=== PATIENT | male | born 1965 | race Caucasian/White ===

== ENCOUNTER 2020-06-11 09:37 | Outpatient (REF) | payer OTHER, SELFPAY ==
[2020-06-11 10:38] LABS: Alanine Aminotransferase 36 U/L (0-40); Anion Gap 13 (12-20); Aspartate Amino Transferase 27 U/L (5-37); Blood Urea Nitrogen 18 mg/dL (9-16); Calcium 9.2 mg/dL (8.4-10.2); Carbon Dioxide 27 mmol/L (22-29); Chloride 104 mmol/L (96-108); Cholesterol 194 mg/dL; Estimated Glomerular Filt Rate > 60; Glucose Random 137 mg/dL (60-115); HDL Cholesterol 31 mg/dL; LDL Cholesterol Calculated 105 mg/dl; Potassium 4.6 mmol/l (3.3-5.1); Sodium 139 mmol/L (135-145); Triglycerides 291 mg/dL
== END 2020-06-11 09:38 | disposition home or self-care (01) ==
LOC: HO.LAB 09:37
PROVIDERS: PCP Nurse Practitioner Family; Visit Provider Nurse Practitioner Family
DX: I48.91 Unspecified atrial fibrillation (principal); I25.10 Atherosclerotic heart disease of native coronary artery without angina pectoris; I48.0 Paroxysmal atrial fibrillation; I10 Essential (primary) hypertension; E78.2 Mixed hyperlipidemia; Z79.01 Long term (current) use of anticoagulants; Z95.1 Presence of aortocoronary bypass graft
CPT/HCPCS: 36415; 80048; 80061; 84450; 84460; 99212

== ENCOUNTER 2020-07-29 13:26 | Outpatient (REF) | payer OTHER, SELFPAY ==
[2020-07-29 15:20] LABS: Hematocrit 44.9 % (42-52); Hemoglobin 15.1 g/dl (14.0-18.0); Mean Corpuscular HGB Conc 33.6 g/dl (31.0-36.0); Mean Corpuscular Hemoglobin 30.1 pg (27.0-33.0); Mean Corpuscular Volume 89.6 fL (80-98); Mean Platelet Volume 10.1 fL (9.4-12.4); Platelet Count 252 X10*3/uL (160-400); Red Blood Count 5.01 X10*6/uL (4.60-5.80); Red Cell Distribution Width 12.6 % (11.0-16.0); White Blood Count 7.9 X10*3/uL (4.8-10.8)
[2020-07-29 15:47] LABS: Alanine Aminotransferase 32 U/L (0-40); Albumin Level 4.4 g/dL (3.5-5.0); Alkaline Phosphatase 61 U/L (39-117); Anion Gap 13 (12-20); Aspartate Amino Transferase 22 U/L (5-37); Bilirubin Total 0.5 mg/dL (0.0-1.0); Blood Urea Nitrogen 21 mg/dL (9-16); Calcium 9.3 mg/dL (8.4-10.2); Carbon Dioxide 29 mmol/L (22-29); Chloride 102 mmol/L (96-108); Cholesterol 214 mg/dL; Estimated Glomerular Filt Rate > 60; Glucose Fasting 97 mg/dL (60-99); HDL Cholesterol 31 mg/dL; Potassium 4.2 mmol/L (3.3-5.1); Sodium 140 mmol/L (135-145); Total Protein 7.1 g/dL (6.5-8.0); Triglycerides 433 mg/dL
[2020-07-29 16:09] LABS: Prostate Specific Antigen Scr 0.41 ng/mL (<0.05-4.0); TSH reflex Free T4 2.98 uIU/mL (0.32-4.0)
== END 2020-07-29 13:27 | disposition home or self-care (01) ==
LOC: HO.LAB 13:26
PROVIDERS: PCP Nurse Practitioner Family; Visit Provider Nurse Practitioner Family
DX: Z01.818 Encounter for other preprocedural examination (principal); I10 Essential (primary) hypertension; I25.10 Atherosclerotic heart disease of native coronary artery without angina pectoris; Z87.19 Personal history of other diseases of the digestive system; Z79.01 Long term (current) use of anticoagulants; Z95.1 Presence of aortocoronary bypass graft; Z90.49 Acquired absence of other specified parts of digestive tract; Z12.5 Encounter for screening for malignant neoplasm of prostate
CPT/HCPCS: 36415; 80053; 80061; 84153; 84443; 85027; 99202

== ENCOUNTER 2021-01-07 08:44 | Outpatient (REF) | payer OTHER, SELFPAY ==
--- NOTE | ~2021-01-07 | US_ITS ---
EXAMINATION: US VENOUS ULTRASOUND WITH DOPPLER LOWER EXTREMITY, RIGHT CLINICAL INFORMATION: Pain right lower leg. COMPARISON: None TECHNIQUE: Ultrasound of the deep veins is performed from the hip to the calf with compression sonography and color and pulse Doppler assessment. Spectral analysis with color-flow imaging is performed. FINDINGS: There is normal venous compression and respiratory variation and augmented flow. The visualized common femoral vein, superficial femoral vein, profunda femoral vein, popliteal vein, and the trifurcation region shows no evidence of deep venous thrombosis. There is no significant popliteal fossa cyst. If the patient's symptoms persist, followup ultrasound in 5 days 7 days might be of value to exclude proximal propagation from a non-visualized calf vein. US/US venous duplex LE RT IMPRESSION: No DVT demonstrated in the right lower extremity.
--- NOTE | ~2021-01-07 | XR_ITS ---
EXAMINATION: XR KNEE, RIGHT CLINICAL INFORMATION: Right knee pain. COMPARISON: None TECHNIQUE: Four views of the right knee with weightbearing. FINDINGS: Bones and soft tissues are normal. No fracture or joint effusion. Alignment is anatomic. Joint spaces are well maintained. No abnormal soft tissue calcification. XR/XR knee RT 4V IMPRESSION: Unremarkable right knee.
== END 2021-01-07 08:45 | disposition home or self-care (01) ==
LOC: HO.HMGCX 08:44
PROVIDERS: PCP Nurse Practitioner Family; Visit Provider Nurse Practitioner Family
DX: M25.561 Pain in right knee (principal); M79.661 Pain in right lower leg
CPT/HCPCS: 73564; 93971

== ENCOUNTER 2021-02-20 08:00 | Outpatient (RCR) | payer OTHER, SELFPAY ==
--- NOTE | 2021-01-31 09:02 | MHC.PT.EP ---
[facility] [place] Office [place] Office [place] Office [address] [phone] F: [phone] F: [phone] F: [phone] F: [phone] Physical Therapy Plan of Care Date of Evaluation: Date of Surgery: n/a Diagnosis: R knee pain Assessment: Patient is a 55 year old R handed male who presents with s/s consistent with R knee pain. Onset was gradual with no method of injury noticed, no trauma. 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 Patient past medical history includes Afib, bypass and bowel resection. Current impairments include pain, ROM, strength, safety, independence, activity tolerance and functional mobility. Functional limitations include decreased ability to walk, stand, go up/down ladders, transfer, negotiate stairs, and perform weight bearing activities.. Patient is motivated with good rehab potential. Skilled PT will address impairments and functional limitations in order to achieve goals. Frequency and Duration: The patient will be seen 2x/week for 5 weeks Short Term Goals: I with HEP - 2 weeks Pain free end range flex and extension - 2 weeks eliminate swelling - 2 weeks Intermediate Goals: Strength 4+/5 grossly - 4 weeks LEFS 54/80 or better - 5 weeks HS and gastroc flexibility WNL - 5 weeks Treatment Plan: Modalities to reduce pain, spasms and effusion. Manual therapy to restore motion and function. Therapeutic exercise to improve strength and flexibility. Neuromuscular re-education for posture and balance. Therapeutic activities to return to functional activities of daily living. Electronically signed by: Augusto Mendoza, PT Please sign and return to therapist. Thank you for your referral.
--- NOTE | 2021-04-25 10:32 | MHC.PT.DC ---
[facility] [place] Office [place] Office [place] Office [address]in Sanches [address] [phone] F: [phone] F: [phone] F: [phone] F: [phone] Physical Therapy Discharge Report Diagnosis: R knee pain Date of Surgery: n/a Date of Evaluation: 01/31/21 Date of Discharge: 03/06/21 Treatments to Date: 4 Cancellations to Date: 0 No Shows to Date: 0 Discharge Status: Recommend MD Follow-up Discharge Summary: 02/20/21: Pt currently with his fourth visit, no signs of symptomatic improvement. He has not responded well to low impact PT. He continues to ambulated with painful gait, decreased stance on R side. He still is (+) for entire meniscal cluster and has still been dealing with significantly impact work and recreational life. It is my recommendation at this time to hold on PT to pursue MR imaging for optimal medical management and discernment. 02/14/21: no symptomatic improvement thus far. we will continue to attempt progression Next week but contact referring provider if s/s persist. 02/07/21: progressed with hip and knee strength. taped for pain relief during work day. assess response when pt returns for usefulness moving forward . Patient is a 55 year old R handed male who presents with s/s consistent with R knee pain. Onset was gradual with no method of injury noticed, no trauma. 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 Patient past medical history includes Afib, bypass and bowel resection. Current impairments include pain, ROM, strength, safety, independence, activity tolerance and functional mobility. Functional limitations include decreased ability to walk, stand, go up/down ladders, transfer, negotiate stairs, and perform weight bearing activities.. Patient is motivated with good rehab potential. Skilled PT will address impairments and functional limitations in order to achieve goals. Electronically signed by: Augusto Mendoza, PT Please sign and return to therapist. Thank you for your referral.
== END 2021-04-25 10:33 | disposition home or self-care (01) ==
LOC: HO.PTCHIC 08:00
PROVIDERS: PCP Nurse Practitioner Family; Visit Provider Nurse Practitioner Family
DX: M25.561 Pain in right knee (principal)
CPT/HCPCS: 97110; 97162

== ENCOUNTER 2021-03-03 10:16 | Outpatient (REF) | payer OTHER, SELFPAY ==
--- NOTE | ~2021-03-03 | MR_ITS ---
EXAMINATION: MR KNEE WITHOUT CONTRAST, RIGHT CLINICAL INFORMATION: Right knee pain for 3 months. COMPARISON: Right knee radiographs dated 01/07/2021 TECHNIQUE: MRI of the knee without contrast was performed using routine sequences on a high-field scanner. FINDINGS: MENISCI: Medial Meniscus: Oblique femoral articular surface tear through the posterior meniscal body which extends to the inner margin and tibial articular surface of the posterior horn. Additional oblique inner margin tear of the posterior horn/root junction. Medially displaced meniscal flap measuring 2.0 cm in AP dimension (sagittal image 09/11). Lateral Meniscus: Intact. LIGAMENTS: Cruciate: Intact. Collateral: Mild fluid adjacent to the medial collateral ligament, consistent with a grade 1 sprain/partial tear. Intact fibular collateral ligament. EXTENSOR MECHANISM: Intact quadriceps and patellar tendons. Lobulated fluid ventral to the patella measuring up to 5.9 cm in craniocaudal dimension, consistent with prepatellar bursitis. ARTICULAR CARTILAGE/BONE: Patellofemoral Compartment: Patellar median ridge and medial patellar facet full-thickness articular cartilage loss measuring 1.1 cm in ML dimension. Minimal underlying subchondral cystic change. Medial trochlear full-thickness articular cartilage loss and subchondral cystic change. Small marginal osteophytes. Medial Compartment: Weightbearing articular cartilage signal heterogeneity and surface irregularity with tiny marginal osteophytes. Lateral Compartment: Lateral tibial plateau articular cartilage signal heterogeneity. Tiny marginal osteophytes. JOINT FLUID AND BURSAE: Moderate joint effusion and [id number] Topete's cyst. MR/MR knee RT wo con IMPRESSION: 1. Oblique femoral articular surface tear of the posterior medial meniscal body extending to the inner margin and tibial articular surface of the posterior horn. Additional oblique inner margin tear of the posterior horn/root junction. Medially displaced meniscal flap measuring 2.0 cm in AP dimension. 2. Probable grade 1 sprain of the medial collateral ligament. 3. Prepatellar bursitis measuring 5.9 cm in craniocaudal dimension. 4. Mild tricompartmental osteoarthritis. Moderate joint effusion and [id number] Topete's cyst.
== END 2021-03-03 10:17 | disposition home or self-care (01) ==
LOC: HO.MRI 10:16
PROVIDERS: PCP Nurse Practitioner Family; Visit Provider Nurse Practitioner Family
DX: M25.561 Pain in right knee (principal)
CPT/HCPCS: 73721

== ENCOUNTER → 2021-04-04 09:47 | Outpatient (BNVA) | payer OTHER, SELFPAY | PROVIDERS: PCP Nurse Practitioner Family; Visit Provider Orthopaedic Surgery | DX: S83.241A Other tear of medial meniscus, current injury, right knee, initial encounter (principal); I48.0 Paroxysmal atrial fibrillation; I48.91 Unspecified atrial fibrillation; Z95.1 Presence of aortocoronary bypass graft | CPT/HCPCS: 99202 ==

== ENCOUNTER 2021-04-08 08:40 | Day surgery (SDC) | payer OTHER, SELFPAY ==
--- NOTE | 2021-04-07 08:26 | HO.ANESPROP2 ---
Documented by User: Domitila Del Rosario NP 04/07/21 08:38 HPI - Anesthesia Eval Consult details Narrative: 55yo M for Right Knee Arthroscopy Eliquis for afib Cardiac cleared at low risk for low risk procedure 08/2020 [facility] Active Problems Active Problems: All Active Problems (Updated 04/04/21 @ 10:37 by Bartolo Fong MD) Tear of medial meniscus of right knee (Acute) Chronic knee pain (Acute) Right calf pain (Acute) Right knee pain (Acute) Status post coronary artery bypass graft (Acute) Screening for colon cancer (Acute) Screening PSA (prostate specific antigen) (Acute) Mixed hyperlipidemia (Acute) Essential hypertension (Acute) PAF (paroxysmal atrial fibrillation) (Acute) Atherosclerotic cardiovascular disease (Acute) Afib (Acute) Past Medical History Medical History Acquired hypothyroidism Afib Atherosclerotic cardiovascular disease Radha syndrome Essential hypertension Mixed hyperlipidemia PAF (paroxysmal atrial fibrillation) Sleep apnea Family History Family History Father Esophageal cancer Stomach cancer Mother Heart problem Brother No problems noted. Brother HTN (hypertension) Maternal Grandfather Myocardial infarction Maternal Uncle Heart problem Surgical History Surgical History History of colectomy History of esophagogastroduodenoscopy (EGD) Hx of CABG Hx of colonoscopy Social History Social History Housing: House Alcohol intake: current Alcohol intake frequency: does not drink Patient Tobacco Use Status: Never used Tobacco Second Hand Smoke Exposure: No Use of substances other than those prescribed or required for medical reasons: No Are you DNR?: No Advance Directives: No Advance Directives Information Provided: Yes Advance Directives on File: No service: No Current occupational status: employed 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 Assessment and Plan Assessment Anesthesia Assessment: Chart Reviewed Documented by User: Aditya Curtis MD 04/08/21 10:06 HPI - Anesthesia Eval Consult details Narrative: 55yo M for Right Knee Arthroscopy Eliquis for afib Cardiac cleared at low risk for low risk procedure 08/2020. >4 mets exercise capacity. PMFSH Past Medical History Medical History Acquired hypothyroidism Afib Atherosclerotic cardiovascular disease Radha syndrome Essential hypertension Mixed hyperlipidemia PAF (paroxysmal atrial fibrillation) Sleep apnea Family History Family History Father Esophageal cancer Stomach cancer Mother Heart problem Brother No problems noted. Brother HTN (hypertension) Maternal Grandfather Myocardial infarction Maternal Uncle Heart problem Family history of problems with anesthesia: No Surgical History Surgical History History of colectomy History of esophagogastroduodenoscopy (EGD) Hx of CABG Hx of colonoscopy History of Problems with Anesthesia: No Social History Social History Housing: House Alcohol intake: current Alcohol intake frequency: does not drink Patient Tobacco Use Status: Never used Tobacco Second Hand Smoke Exposure: No Use of substances other than those prescribed or required for medical reasons: No Are you DNR?: No Advance Directives: No Advance Directives Information Provided: Yes Advance Directives on File: No service: No Current occupational status: employed 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 Allergy/AdvReac Type Severity Reaction Status Date / Time atorvastatin [Lipitor] AdvReac Intermediate didn't Verified 08/28/20 08:46 tolerate rosuvastatin [Crestor] AdvReac Intermediate didn't Verified 08/28/20 08:46 tolerate venlafaxine [From Effexor] AdvReac Intermediate did not Verified 08/28/20 08:46 tolerate Exam Airway Mallampati Class: II TM Dist: >3cm Neck ROM: Full Loose/Missing/Broken Teeth: No Assessment and Plan Assessment Anesthesia Assessment: Anesthesia Plan Discussed Final Anesthetic Review Family History of Problems with Anesthesia: No History of Problems with Anesthesia: No NPO: Yes ASA Class: III Final Preanesthetic Review: No Changes in Pt Med Stat, Meds/Allgs Chart Reviewed, Consent Obtained/Reviewed and Anes Risks/Benef Reviewed Patient Risk: Intermediate Procedure Risk: Low Anesthetic Plan Anesthetic Plan: GA Disposition: Standard PACU
[2021-04-08] VITALS (8 sets, daily range): BP systolic 124–158; BP diastolic 80–100; PULSE 60–97; RESP 16–17; TEMP 36.9–37.1; O2SAT 96–98; BMI 35.2
--- NOTE | 2021-04-08 | ECG_ITS ---
Test Reason : afib hx cabg Blood Pressure : / mmHG Vent. Rate : 072 BPM Atrial Rate : 072 BPM P-R Int : 192 ms QRS Dur : 082 ms QT Int : 388 ms P-R-T Axes : -02 035 028 degrees QTc Int : 424 ms Normal sinus rhythm Normal ECG When compared with ECG of 02-AUG-2017 22:10, No significant change was found Heart rate has increased Referred By: Domitila Del Rosario Electronically Signed By:SHARRI ESTRADA MD
[2021-04-08 09:01] LABS: Hematocrit 45.7 % (42.0-52.0); Hemoglobin 15.9 g/dl (14.0-18.0); Mean Corpuscular HGB Conc 34.8 g/dl (31.0-36.0); Mean Corpuscular Hemoglobin 29.6 pg (27.0-33.0); Mean Corpuscular Volume 84.9 fL (80.0-98.0); Mean Platelet Volume 9.5 fL (9.4-12.4); Platelet Count 225 X10*3/uL (160-400); Red Blood Count 5.38 X10*6/uL (4.60-5.80); Red Cell Distribution Width 12.3 % (11.0-16.0); White Blood Count 6.1 X10*3/uL (4.8-10.8)
[2021-04-08 09:18] LABS: Anion Gap 14 (12-20); Blood Urea Nitrogen 13 mg/dL (9-16); Calcium 9.5 mg/dL (8.4-10.2); Carbon Dioxide 26 mmol/L (22-29); Chloride 104 mmol/L (96-108); Creatinine Clr Calc Pharmacy 105.9; Estimated Glomerular Filt Rate > 60; Glucose Fasting 132 mg/dL (60-99); Potassium 4.4 mmol/L (3.3-5.1); Sodium 140 mmol/L (135-145)
[2021-04-08] MEDS: Lactated Ringers 1,000 ML 100 ML IVCONT (09:20)
[2021-04-08] MEDS: Metoprolol Tartrate 25 MG TABLET 75 MG PO (10:41)
--- NOTE | 2021-04-08 10:52 | MHC.SHP ---
Pre-Procedural Eval Section A Date of Service: 04/08/21 The patient is an INPATIENT: No Changes since office visit: Yes Patient answered all questions; No Cold of Flu in the past 2 weeks, No New Medical Problems and No Changes in Medication The History & Physical has been completed within 30 days and I have reviewed it.: Yes Section B Chief Complaint: tear of medial meniscus Allergies: Allergies Allergy/AdvReac Type Severity Reaction Status Date / Time atorvastatin [Lipitor] AdvReac Intermediate didn't Verified 08/28/20 08:46 tolerate rosuvastatin [Crestor] AdvReac Intermediate didn't Verified 08/28/20 08:46 tolerate venlafaxine [From Effexor] AdvReac Intermediate did not Verified 08/28/20 08:46 tolerate Plan I have reviewed the history and physical and performed a pertinent physical examination on my patient. No changes have occurred unless specified.
--- NOTE | 2021-04-08 12:02 | P.BOP_ITS ---
Brief Operative Note Date of Service: 04/08/21 Pre-op diagnosis: right knee medial meniscus tear Post-op diagnosis: other (1)Right knee MMT 2)Right knee OA) Procedure: Right knee with partial medial meniscectomy and chondroplasty Surgeon: Bartloo Fong MD Anesthesia: GETA and local Was an Germination Testing Manager used for this Procedure?: No Estimated blood loss (mL): 5 Tourniquet time (min): 25 Pathology: none sent Condition: stable Disposition: PACU
--- NOTE | 2021-04-09 12:36 | P.OP_ITS ---
Operative Note Operative Note Date of Service: 04/08/21 Narrative: Pre-op diagnosis: right knee medial meniscus tear Post-op diagnosis: other (1)Right knee MMT 2)Right knee OA) Procedure: Right knee with partial medial meniscectomy and chondroplasty Surgeon: Bartolo Fong MD Anesthesia: GETA and local Was an Talent Acquisition Project Manager used for this Procedure?: No Estimated blood loss (mL): 5 Tourniquet time (min): 25 Pathology: none sent Condition: stable Disposition: PACU Procedure in detail: The patient was brought to the operating room placed supine on the arthroscopic table and prepped and draped in standard sterile fashion. A time-out was called to identify proper site proper procedure proper surgeon and IV antibiotics per weight were administered. I began by exsanguinating the limb and insufflating tourniquet to 300 mm Hg. Then made a standard anterolateral stab incision. knee was insulated with water and 30 degree arthroscope was placed. There was grade 1 fibrillations of the patella and the proximal aspect of the central facet had G3/4 changes. The suprapatellar pouch was clean and the gutters were clean. I descended into the medial compartment where I made my medial portal under direct visualization. There was obvious of complex tear of the body and posterior horn of the medial meniscus. Root was intact and there was grade 1 changes with some scattered grade 2 changes throughout the medial plateau and MFC and there was one area of G 4 contained cartilage loss on the anterior wb surface just medial to the trochlea. This was debrided down to stable edges. I used a combination of biter shaver and cautery to remove unstable portions of the meniscus. Approximately 40% meniscal volume was removed. Once I was happy with this the ACL was examined and found to be intact and the lateral compartment also was without the need for intervention although there were G1/2 chondrolmalacia of the lateral plateau. I then removed all instrumentation and closed the portals with skin glue. 25 mL of 2% Marcaine with epinephrine was injected into the joint and the surrounding soft tissues. Patient was then placed in sterile dressing extubated brought recovery room stable condition. There were no known complications.
== END 2021-04-08 13:40 | disposition home or self-care (01) ==
PROVIDERS: Nurse Practitioner; PCP Nurse Practitioner Family; Visit Provider Orthopaedic Surgery
PROC: (CPT 29870; principal; 2021-04-08 10:20)
DX: M23.221 Derangement of posterior horn of medial meniscus due to old tear or injury, right knee (principal); M17.11 Unilateral primary osteoarthritis, right knee; M25.661 Stiffness of right knee, not elsewhere classified; E03.9 Hypothyroidism, unspecified; G47.33 Obstructive sleep apnea (adult) (pediatric); I10 Essential (primary) hypertension; E78.5 Hyperlipidemia, unspecified; I24.1 Dressler's syndrome; I48.0 Paroxysmal atrial fibrillation; I25.10 Atherosclerotic heart disease of native coronary artery without angina pectoris; Z95.1 Presence of aortocoronary bypass graft; Z79.01 Long term (current) use of anticoagulants; Z79.899 Other long term (current) drug therapy
CPT/HCPCS: 29881; 36415; 80048; 85027; 93005; J0171; J0690; J1100; J2250; J2405; J3010

== ENCOUNTER → 2021-04-21 08:32 | Outpatient (BNVA) | payer OTHER, SELFPAY | PROVIDERS: PCP Nurse Practitioner Family; Visit Provider Physician Assistant | DX: S83.241D Other tear of medial meniscus, current injury, right knee, subsequent encounter (principal) | CPT/HCPCS: 99212 ==

== ENCOUNTER 2022-09-12 21:20 | Emergency (ER) | payer OTHER, SELFPAY ==
--- NOTE | 2022-09-12 | ECG_ITS ---
Test Reason : CHEST PAIN Blood Pressure : / mmHG Vent. Rate : 056 BPM Atrial Rate : 056 BPM P-R Int : 228 ms QRS Dur : 084 ms QT Int : 400 ms P-R-T Axes : 002 037 027 degrees QTc Int : 386 ms Sinus bradycardia with 1st degree A-V block Otherwise normal ECG When compared with ECG of 08-APR-2021 09:06, LA interval has increased Referred By: Generic ED Physician Electronically Signed By:Keith Bunch
[2022-09-12 21:21] VITALS: BP 126/92; PULSE 61; RESP 16; TEMP 36.8; O2SAT 97; BMI 32.5
[2022-09-12 21:47] LABS: MANUAL DIFF FLAG NO
[2022-09-12 21:48] LABS: Basophils Absolute Auto 0.1 X10*3/uL (0.0-0.2); Basophils Percent Auto 0.8 % (0-2); Eosinophils Absolute Auto 0.3 X10*3/uL (0.0-0.4); Eosinophils Percent Auto 3.2 % (0-4); Hematocrit 45.8 % (42.0-52.0); Hemoglobin 15.9 g/dl (14.0-18.0); Imm Gran Abs Auto 0.02 X10*3/uL (0.00-0.03); Imm Gran Pct Auto 0.3 % (0.0-0.4); Mean Corpuscular HGB Conc 34.7 g/dl (31.0-36.0); Mean Corpuscular Hemoglobin 29.7 pg (27.0-33.0); Mean Corpuscular Volume 85.6 fL (80.0-98.0); Mean Platelet Volume 9.3 fL (9.4-12.4); Monocytes Absolute Auto 0.7 X10*3/uL (0.1-1.2); Neutrophils Absolute Auto 3.7 x10*3/uL (2.0-8.3); Neutrophils Percent Auto 47.7 % (45-73); Platelet Count 223 X10*3/uL (160-400); Red Blood Count 5.35 X10*6/uL (4.60-5.80); Red Cell Distribution Width 13.2 % (11.0-16.0); White Blood Count 7.8 X10*3/uL (4.8-10.8)
[2022-09-12 22:05] LABS: Alanine Aminotransferase 50 U/L (0-40); Albumin Level 4.4 g/dL (3.5-5.0); Alkaline Phosphatase 57 U/L (39-117); Anion Gap 15 (12-20); Aspartate Amino Transferase 39 U/L (5-37); Bilirubin Total 0.5 mg/dL (0.0-1.0); Blood Urea Nitrogen 20 mg/dL (9-16); Calcium 9.8 mg/dL (8.4-10.2); Carbon Dioxide 26 mmol/L (22-29); Chloride 104 mmol/L (96-108); Creatinine Clr Calc Pharmacy 93.8; Estimated Glomerular Filt Rate > 60; Glucose Random 98 mg/dL (60-115); Potassium 4.5 mmol/L (3.3-5.1); Sodium 140 mmol/L (135-145); Total Protein 7.3 g/dL (6.5-8.0)
[2022-09-12 22:16] LABS: Troponin-I High Sensitivity < 2.7 ng/L (<3.5-35.0)
--- NOTE | 2022-09-12 23:33 | ED_ITS ---
HPI - Chest Pain General Chief Complaint: Chest Pain Stated Complaint: chest pain, limp left arm, light headed Time Seen by Provider: 09/12/22 23:32 Source: patient Mode of arrival: ambulatory Limitations: no limitations History of Present Illness HPI narrative: Patient history of hypertension paroxysmal AFib on Eliquis coronary disease status post 2 vessel cardiac bypass in 2011 been in healthy state but for last few days noticed chest discomfort and dyspnea on exertion no diaphoresis no nausea no vomiting no radiation of chest discomfort to the left arm no leg edema patient did have some episodes of palpitation none on arrival Related Data Previous Rx's Medication Instructions Recorded omega-3 acid ethyl esters 1 gram 2 cap PO BID 30 days #120 caps 08/08/20 capsule alirocumab 150 mg/mL subcutaneous 150 mg subcut Q2W 30 days #3 mL 08/26/20 pen injector hydrocodone 5 mg-acetaminophen 300 1 tab PO Q8H PRN pain (scale score 04/08/21 mg tablet 7-10) #10 tabs lisinopril 10 mg tablet 10 mg PO DAILY #30 tabs 09/15/21 apixaban 5 mg tablet (Eliquis) 5 mg PO BID #60 tabs 05/04/22 metoprolol tartrate 50 mg tablet 75 mg PO BID #270 tabs 05/19/22 levothyroxine 50 mcg tablet 50 mcg PO DAILY #30 tabs 07/14/22 Allergies Allergy/AdvReac Type Severity Reaction Status Date / Time atorvastatin [Lipitor] AdvReac Intermediate didn't Verified 04/21/21 08:40 tolerate rosuvastatin [Crestor] AdvReac Intermediate didn't Verified 04/21/21 08:40 tolerate venlafaxine [From Effexor] AdvReac Intermediate did not Verified 04/21/21 08:40 tolerate Review of Systems Review of Systems: Yes all other systems are reviewed and are negative [facility] Past Medical History Medical History Acquired hypothyroidism Afib Atherosclerotic cardiovascular disease Radha syndrome Essential hypertension Mixed hyperlipidemia PAF (paroxysmal atrial fibrillation) Sleep apnea Surgical History History of colectomy History of esophagogastroduodenoscopy (EGD) Hx of CABG Hx of colonoscopy Family History Family History Father Esophageal cancer Stomach cancer Mother Heart problem Brother No problems noted. 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 Oriented X3. No acute distress. Eyes: PERRLA, No Nystagmus ENT: Pharynx normal. Oral Mucosa moist Neck: Normal inspection. Neck supple. CVS: Sinus bradycardia no murmur or gallop Pulses normal. Respiratory: No respiratory distress. Equal air entry bilateral, no whee zing/rales/rhonchi Abdomen: Soft and nontender. Bowel sounds are present, no mass palpable, no CVA tenderness Skin: Skin warm and dry. Normal skin color. Normal skin turgor. Extremities: No lower extremity edema. No calf tenderness Neuro: Oriented X 3. No motor deficit. No sensory deficit.No cerebellar signs , cranial nerves II-XII intact Medications Administered Discontinued Medications Generic Name Dose Route Start Last Admin Trade Name Freq PRN Reason Stop Dose Admin Aspirin 162 mg 09/13/22 00:09 09/13/22 00:36 Aspirin 81 Mg Tab.Chew PO 09/13/22 00:10 162 mg ONCE ONE Administration Medical Decision Making Medical Decision Making [facility] Narrative: Patient with chest pain with significant cardiac history 2 sets of cardiac enzymes are negative no signs of CHF. EKG without any acute ischemic changes patient advised to follow with corporate associate attorney no chest pain at the time of discharge Differential Diagnosis ACS/PE/pneumonia/pneumothorax/STEMI/non-STEMI Lab Data [facility] Lab Attestation statement: I reviewed the patient's lab results. 09/12/22 21:41 09/12/22 21:41 Labs: Lab Results 09/12/22 09/12/22 09/12/22 Range/Units 21:41 21:41 21:41 WBC 7.8 (4.8-10.8) X10*3/uL RBC 5.35 (4.60-5.80) X10*6/uL Hgb 15.9 (14.0-18.0) g/dl Hct 45.8 (42.0-52.0) % MCV 85.6 (80.0-98.0) fL MCH 29.7 (27.0-33.0) pg MCHC 34.7 (31.0-36.0) g/dl RDW 13.2 (11.0-16.0) % Plt Count 223 (160-400) X10*3/uL MPV 9.3 L (9.4-12.4) fL Immature Gran % (Auto) 0.3 (0.0-0.4) % Neut % (Auto) 47.7 (45-73) % Lymph % (Auto) 39.0 (20-40) % Cassia % (Auto) 9.0 (2-11) % Eos % (Auto) 3.2 (0-4) % Baso % (Auto) 0.8 (0-2) % Lymph # (Auto) 3.0 (1.2-4.9) X10*3/uL Cassia # (Auto) 0.7 (0.1-1.2) X10*3/uL Eos # (Auto) 0.3 (0.0-0.4) X10*3/uL Baso # (Auto) 0.1 (0.0-0.2) X10*3/uL Abs Immat Gran (auto) 0.02 (0.00-0.03) X10*3/uL Absolute Neuts (auto) 3.7 (2.0-8.3) x10*3/uL Absolute Nucleated RBC 0.000 (0.0-0.012) X10*3/uL Nucleated RBC % (auto) 0.0 (0.0-0.2) /100WBC Sodium 140 (135-145) mmol/L Potassium 4.5 (3.3-5.1) mmol/L Chloride 104 (96-108) mmol/L Carbon Dioxide 26 (22-29) mmol/L Anion Gap 15 (12-20) BUN 20 H (9-16) mg/dL Creatinine 1.08 (0.5-1.4) mg/dL Estim Creat Clear Calc 93.8 Estimated GFR > 60 Random Glucose 98 (60-115) mg/dL Calcium 9.8 (8.4-10.2) mg/dL Total Bilirubin 0.5 (0.0-1.0) mg/dL AST 39 H (5-37) U/L ALT 50 H (0-40) U/L Alkaline Phosphatase 57 (39-117) U/L Troponin I High Sens < 2.7 (<3.5-35.0) ng/L Total Protein 7.3 (6.5-8.0) g/dL Albumin 4.4 (3.5-5.0) g/dL 09/13/22 Range/Units 00:42 WBC (4.8-10.8) X10*3/uL RBC (4.60-5.80) X10*6/uL Hgb (14.0-18.0) g/dl Hct (42.0-52.0) % MCV (80.0-98.0) fL MCH (27.0-33.0) pg MCHC (31.0-36.0) g/dl RDW (11.0-16.0) % Plt Count (160-400) X10*3/uL MPV (9.4-12.4) fL Immature Gran % (Auto) (0.0-0.4) % Neut % (Auto) (45-73) % Lymph % (Auto) (20-40) % Cassia % (Auto) (2-11) % Eos % (Auto) (0-4) % Baso % (Auto) (0-2) % Lymph # (Auto) (1.2-4.9) X10*3/uL Cassia # (Auto) (0.1-1.2) X10*3/uL Eos # (Auto) (0.0-0.4) X10*3/uL Baso # (Auto) (0.0-0.2) X10*3/uL Abs Immat Gran (auto) (0.00-0.03) X10*3/uL Absolute Neuts (auto) (2.0-8.3) x10*3/uL Absolute Nucleated RBC (0.0-0.012) X10*3/uL Nucleated RBC % (auto) (0.0-0.2) /100WBC Sodium (135-145) mmol/L Potassium (3.3-5.1) mmol/L Chloride (96-108) mmol/L Carbon Dioxide (22-29) mmol/L Anion Gap (12-20) BUN (9-16) mg/dL Creatinine (0.5-1.4) mg/dL Estim Creat Clear Calc Estimated GFR Random Glucose (60-115) mg/dL Calcium (8.4-10.2) mg/dL Total Bilirubin (0.0-1.0) mg/dL AST (5-37) U/L ALT (0-40) U/L Alkaline Phosphatase (39-117) U/L Troponin I High Sens < 2.7 (<3.5-35.0) ng/L Total Protein (6.5-8.0) g/dL Albumin (3.5-5.0) g/dL Independent Interpretation I performed an independent interpretation of an: EKG Interpretation: Sinus bradycardia heart rate 56 beats per minute first-degree heart block no acu te ST wave changes no acute ischemia Discharge Plan Discharge Clinical Impression: Chest pain Patient Disposition: Home, Self-Care Instructions: Chest Pain (ED) Additional Instructions: Continue your Eliquis and had baby aspirin 81 mg daily Follow-up with corporate associate attorney for further evaluation At this time there is no convincing data to suggest significant heart damage but need further evaluation Prescriptions: No Action omega-3 acid ethyl esters 1 gram capsule 2 cap PO BID 30 Days Qty: 120 3RF alirocumab 150 mg/mL pen injector 150 mg subcut Q2W 30 Days Qty: 3 5RF Rx Instructions: inject into abdomen, thigh, or upper arm (deltoid muscle); rotate sites lisinopril 10 mg tablet 10 mg PO DAILY Qty: 30 11RF Eliquis 5 mg tablet 5 mg PO BID Qty: 60 1RF Rx Instructions: Call our office to schedule OVERDUE APPT w Dr. Collier for 2022 to c juan jose w refills; [phone] metoprolol tartrate 50 mg tablet 75 mg PO BID Qty: 270 1RF Rx Instructions: OVERDUE FOR APPT. TO CONTINUE RECEIVING FUTURE REFIILS PLEASE CALL [phone] TO SCHEDULE for 2022 levothyroxine 50 mcg tablet 50 mcg PO DAILY Qty: 30 2RF hydrocodone-acetaminophen 5-300 mg tablet 1 tab PO Q8H PRN (Reason: pain (scale score 7-10)) Qty: 10 0RF
[2022-09-12 23:53] VITALS: BP 117/71; PULSE 58; RESP 16; O2SAT 97
[2022-09-13] MEDS: Aspirin 81 MG TAB.CHEW 162 MG PO (00:36)
[2022-09-13 01:07] LABS: Troponin-I High Sensitivity < 2.7 ng/L (<3.5-35.0)
[2022-09-13 01:46] VITALS: BP 108/72; PULSE 57; RESP 16; O2SAT 95
== END 2022-09-13 01:47 | disposition home or self-care (01) ==
PROVIDERS: Emergency Provider Internal Medicine; PCP Nurse Practitioner Family
DX: R07.9 Chest pain, unspecified (principal); I10 Essential (primary) hypertension; E78.5 Hyperlipidemia, unspecified; I48.0 Paroxysmal atrial fibrillation; Z79.01 Long term (current) use of anticoagulants; Z79.899 Other long term (current) drug therapy; Z79.02 Long term (current) use of antithrombotics/antiplatelets
CPT/HCPCS: 36415; 80053; 84484; 85025; 93005; 99283; 99285

== ENCOUNTER 2022-09-14 11:48 | Outpatient (REF) | payer OTHER, SELFPAY ==
[2022-09-14 14:43] LABS: Alanine Aminotransferase 50 U/L (0-40); Albumin Level 4.5 g/dL (3.5-5.0); Alkaline Phosphatase 59 U/L (39-117); Anion Gap 15 (12-20); Aspartate Amino Transferase 33 U/L (5-37); Bilirubin Total 1.2 mg/dL (0.0-1.0); Blood Urea Nitrogen 14 mg/dL (9-16); Calcium 9.7 mg/dL (8.4-10.2); Carbon Dioxide 26 mmol/L (22-29); Chloride 105 mmol/L (96-108); Cholesterol 265 mg/dL; Estimated Glomerular Filt Rate > 60; Glucose Random 95 mg/dL (60-115); HDL Cholesterol 33 mg/dL; LDL Cholesterol Calculated 197 mg/dl; Potassium 4.5 mmol/L (3.3-5.1); Sodium 141 mmol/L (135-145); Total Protein 7.3 g/dL (6.5-8.0); Triglycerides 175 mg/dL
[2022-09-14 15:00] LABS: Prostate Specific Antigen Scr 0.57 ng/mL (<0.05-4.0); TSH reflex Free T4 3.95 uIU/mL (0.32-4.0)
== END 2022-09-14 11:49 | disposition home or self-care (01) ==
LOC: HO.HMGCLDS 11:48
PROVIDERS: PCP Nurse Practitioner Family; Visit Provider Nurse Practitioner Family
DX: E78.2 Mixed hyperlipidemia (principal); I25.10 Atherosclerotic heart disease of native coronary artery without angina pectoris; E03.9 Hypothyroidism, unspecified; Z12.5 Encounter for screening for malignant neoplasm of prostate
CPT/HCPCS: 36415; 80053; 80061; 84153; 84443

== ENCOUNTER 2022-09-17 10:32 | Outpatient (REF) | payer OTHER, SELFPAY ==
--- NOTE | ~2022-09-17 | US_ITS ---
EXAMINATION: US ABDOMEN COMPLETE CLINICAL INFORMATION: Elevated liver enzymes. COMPARISON: CT abdomen and pelvis without contrast dated 02/11/2017. Ultrasound abdomen complete dated 07/22/2012. TECHNIQUE: Real-time imaging of the abdominal viscera. FINDINGS: PANCREAS: Normal. ABDOMINAL AORTA: The proximal, mid, and distal segments are normal in caliber. INFERIOR VENA CAVA: Visualized portions are normal. LIVER: The liver is normal in size. The liver contour is normal. There is diffuse increased liver parenchymal echogenicity, with pericholecystic sparing. No focal hepatic lesion. There is no intrahepatic biliary duct dilatation seen. GALLBLADDER: Normal. The gallbladder is physiologically distended without evidence of stones, sludge, polyps, wall thickening or pericholecystic fluid. COMMON BILE DUCT: Normal in caliber measuring 0.26 cm in diameter. RIGHT KIDNEY: At the interpolar aspect, a 3 mm nonobstructing calculus is seen. No hydronephrosis or focal parenchymal lesions. The kidney measures 12.2 cm in maximum dimension. At the interpolar aspect, a 1.4 cm benign, simple cyst is seen. LEFT KIDNEY: At the lower pole, a 5 mm nonobstructing calculus is seen. No hydronephrosis or focal parenchymal lesions. The kidney measures 12.2 cm in maximum dimension. SPLEEN: Normal. The spleen measures 11.0 cm in maximum dimension. FREE FLUID: None. US/US abdomen complete IMPRESSION: 1. There is generalized increase in hepatic echotexture, consistent with fatty infiltration or hepatocellular disease. Please correlate clinically. Characteristic pericholecystic sparing favors fatty infiltration. No focal hepatic mass or intrahepatic biliary dilatation is seen. 2. Nonobstructing bilateral renal calculi are seen, as detailed. No hydronephrosis is noted. 3. A 1.4 cm benign, simple right renal cyst is seen. This requires no imaging follow-up.
== END 2022-09-17 10:33 | disposition home or self-care (01) ==
LOC: HO.HMGCX 10:32
PROVIDERS: PCP Nurse Practitioner Family; Visit Provider Nurse Practitioner Family
DX: R74.8 Abnormal levels of other serum enzymes (principal)
CPT/HCPCS: 76700

== ENCOUNTER 2022-09-18 11:41 | Outpatient (REF) | payer OTHER, SELFPAY ==
[2022-09-18 11:49] LABS: MANUAL DIFF FLAG NO
[2022-09-18 12:17] LABS: Basophils Percent Auto 0.6 % (0-2); Eosinophils Absolute Auto 0.2 X10*3/uL (0.0-0.4); Eosinophils Percent Auto 3.2 % (0-4); Hematocrit 47.8 % (42.0-52.0); Hemoglobin 16.5 g/dl (14.0-18.0); Imm Gran Abs Auto 0.02 X10*3/uL (0.00-0.03); Imm Gran Pct Auto 0.3 % (0.0-0.4); Lymphocytes Absolute Auto 2.2 X10*3/uL (1.2-4.9); Lymphocytes Percent Auto 35.1 % (20-40); Mean Corpuscular HGB Conc 34.5 g/dl (31.0-36.0); Mean Corpuscular Hemoglobin 29.9 pg (27.0-33.0); Mean Corpuscular Volume 86.6 fL (80.0-98.0); Mean Platelet Volume 10.1 fL (9.4-12.4); Monocytes Absolute Auto 0.4 X10*3/uL (0.1-1.2); Monocytes Percent Auto 6.6 % (2-11); Neutrophils Absolute Auto 3.4 x10*3/uL (2.0-8.3); Neutrophils Percent Auto 54.2 % (45-73); Platelet Count 245 X10*3/uL (160-400); Red Blood Count 5.52 X10*6/uL (4.60-5.80); Red Cell Distribution Width 12.9 % (11.0-16.0); White Blood Count 6.2 X10*3/uL (4.8-10.8)
[2022-09-18 12:22] LABS: Prothrombin Time 11.9 SEC (10.0-13.1)
== END 2022-09-18 11:42 | disposition home or self-care (01) ==
LOC: HO.LAB 11:41
PROVIDERS: PCP Nurse Practitioner Family; Visit Provider Nurse Practitioner Family
DX: E78.2 Mixed hyperlipidemia (principal); I25.10 Atherosclerotic heart disease of native coronary artery without angina pectoris; I48.0 Paroxysmal atrial fibrillation; I10 Essential (primary) hypertension
CPT/HCPCS: 36415; 85025; 85610

== ENCOUNTER 2022-09-21 09:10 | Outpatient (REF) | payer OTHER, SELFPAY ==
[2022-09-21 10:08] LABS: Prothrombin Time 11.3 SEC (10.0-13.1)
== END 2022-09-21 09:11 | disposition home or self-care (01) ==
LOC: HO.LAB 09:10
PROVIDERS: PCP Nurse Practitioner Family; Visit Provider Internal Medicine
DX: I48.0 Paroxysmal atrial fibrillation (principal)
CPT/HCPCS: 36415; 85610

== ENCOUNTER → 2022-09-24 08:02 | Outpatient (BNVA) | payer OTHER, SELFPAY | PROVIDERS: PCP Nurse Practitioner Family; Visit Provider Internal Medicine | DX: I48.0 Paroxysmal atrial fibrillation (principal); Z79.01 Long term (current) use of anticoagulants; Z51.81 Encounter for therapeutic drug level monitoring | CPT/HCPCS: 85610; 99202 ==

== ENCOUNTER → 2022-09-29 10:13 | Outpatient (BNVA) | payer OTHER, SELFPAY | PROVIDERS: PCP Nurse Practitioner Family; Visit Provider Internal Medicine | DX: I48.0 Paroxysmal atrial fibrillation (principal); Z79.01 Long term (current) use of anticoagulants; Z51.81 Encounter for therapeutic drug level monitoring | CPT/HCPCS: 85610; 99211 ==

== ENCOUNTER → 2022-10-01 09:44 | Outpatient (BNVA) | payer OTHER, SELFPAY | PROVIDERS: PCP Nurse Practitioner Family; Referring Provider Nurse Practitioner Family; Visit Provider Internal Medicine | DX: I48.0 Paroxysmal atrial fibrillation (principal); I25.10 Atherosclerotic heart disease of native coronary artery without angina pectoris; I10 Essential (primary) hypertension; E78.2 Mixed hyperlipidemia; Z95.1 Presence of aortocoronary bypass graft; Z79.01 Long term (current) use of anticoagulants; Z79.899 Other long term (current) drug therapy | CPT/HCPCS: 99212 ==

== ENCOUNTER → 2022-10-02 09:34 | Outpatient (BNVA) | payer OTHER, SELFPAY | PROVIDERS: PCP Nurse Practitioner Family; Visit Provider Internal Medicine | DX: I48.0 Paroxysmal atrial fibrillation (principal); Z79.01 Long term (current) use of anticoagulants; Z51.81 Encounter for therapeutic drug level monitoring | CPT/HCPCS: 85610; 99211 ==

== ENCOUNTER → 2022-10-06 15:53 | Outpatient (BNVA) | payer OTHER, SELFPAY | PROVIDERS: PCP Nurse Practitioner Family; Visit Provider Internal Medicine | DX: I48.0 Paroxysmal atrial fibrillation (principal); Z79.01 Long term (current) use of anticoagulants; Z51.81 Encounter for therapeutic drug level monitoring | CPT/HCPCS: 85610; 99211 ==

== ENCOUNTER → 2022-10-16 08:18 | Outpatient (BNVA) | payer OTHER, SELFPAY | PROVIDERS: PCP Nurse Practitioner Family; Visit Provider Internal Medicine | DX: I48.0 Paroxysmal atrial fibrillation (principal); Z79.01 Long term (current) use of anticoagulants; Z51.81 Encounter for therapeutic drug level monitoring | CPT/HCPCS: 85610; 99211 ==

== ENCOUNTER → 2022-10-23 08:56 | Outpatient (BNVA) | payer OTHER, SELFPAY | PROVIDERS: PCP Nurse Practitioner Family; Visit Provider Internal Medicine | DX: I48.0 Paroxysmal atrial fibrillation (principal); Z79.01 Long term (current) use of anticoagulants; Z51.81 Encounter for therapeutic drug level monitoring | CPT/HCPCS: 85610; 99211 ==

== ENCOUNTER → 2022-10-27 08:49 | Outpatient (REF) | payer OTHER, SELFPAY ==
--- NOTE | ~2022-10-27 | NM_ITS ---
Exercise Myocardial perfusion study Indication: Precordial chest pain to evaluate for myocardial ischemia Technique: The patient was brought in for an exercise perfusion study on 10/27/2022. Patient performed exercise as per Sd protocol and was injected 40 mCi of sestamibi was given intravenously one target HR was achieved. Images were obtained using the SPECT gamma camera interlaced with the gating device. Images were obtained in supine position. Resting perfusion study was performed on 10/29/2022. Patient was administered 40 mCi of sestamibi intravenously at rest. Images were then obtained in supine position. Images obtained with and without CT attenuation. Total DLP 124 mGy-cm. Images were processed with the software and compared side to side in short axis, horizontal long axis and vertical long axis views. Findings: The stress perfusion study showed non attenuated images show mildly reduced uptake in the basal inferior and some thinning of the mid and apical inferior wall of the LV myocardium as well as mildly reduced uptake in the basal septum of the LV myocardium. Attenuation corrected images show mildly reduced uptake in the apex of the LV myocardium with minimally reduced uptake in the distal septum.. The gated study shows normal LV systolic function with calculated LVEF of 57%. LV cavity is mildly dilated in size. The gated study shows normal systolic wall thickening and contraction of all segments. There is no transient ischemic dilation. Resting study shows no change in perfusion pattern compared to stress perfusion study. Gating at rest reveals normal systolic wall motion with ejection fraction at 64%. The findings are consistent with normal myocardial perfusion. NM/NM cardiolite stress test Impression: 1. Normal myocardial perfusion 2. Gated LVEF is 57% 3. Transient ischemic dilatation not present but LV cavity is dilated Stress EKG is borderline positive for ischemia
--- NOTE | 2022-10-27 08:52 | CA_ITS ---
Transthoracic Echocardiogram Patient (Last, First, Middle): Deacon Vaz R Gender: Male Date of : 1965 Age: 57 Procedure Date: 10/27/2022 Procedure Type: Transthoracic Echocardiogram Location: OP Height: 182.88 cm Weight: 108.86 kg BSA: 2.30 m2 Heart Rate: bpm BP: 118 / 80 mmHg Senior Health Educator: TO Referring MD: Sidney Collier MD Forestry Engineer: Denys Barber MD Symptoms: I25.10 - Atherosclerotic heart disease of [place] coronary artery without... Study Quality: Fair/Contrast ECG Rhythm: Sinus Conclusions: - 1. Normal LV systolic function with LVEF of 60 65% 2. Normal cardiac valvular Doppler 3. Normal RV systolic pressure 4. Mildly dilated ascending aorta at 3.9 cm 5. No gross pericardial effusion Findings Procedure Information Contrast agent, definity, is being given per protocol without apparent complications. Left Ventricle Normal left ventricular size, thickness, and systolic function. The visually estimated ejection fraction is between 60-65%. Spectral Doppler is indicative of a normal filling pattern. There is mild septal asymmetric hypertrophy. Wall Motion Rest Echo Findings The basal inferior and basal inferoseptal segments are hypokinetic. All other scored wall segments showed normal motion. Right Ventricle Normal right ventricular cavity size and systolic function. Atria Both atria are likely dilated. There is lipomatous hypertrophy of the interatrial septum. There is no evidence of interatrial shunt. Aortic Valve There is mild calcification of the aortic valve. There is no aortic valve stenosis. There is no aortic valve regurgitation. Mitral Valve There is mild anterior and posterior mitral leaflet thickening. There is mild mitral annular calcification. There is trace mitral valve regurgitation. There is no mitral valve stenosis. Pulmonic Valve The pulmonic valve is likely normal. There is no pulmonic valve regurgitation. Tricuspid Valve Normal tricuspid valve structure. There is trace tricuspid valve regurgitation. The right ventricular systolic pressure is normal. The right ventricular systolic pressure is 15 mmHg. Normal right atrial pressure. There is no evidence of pulmonary hypertension. Great Vessels The pulmonary artery was not well visualized. There is mild dilatation of the ascending aorta measuring 3.90 cm. Venous The inferior vena cava is normal in size and collapses greater than 50% with inspiration. Pericardium/Pleural There is no evidence of pericardial effusion. Prior Study Comparison Changes noted compared to prior study dated: 10/16/2019. Ascending aorta is mildly dilated Measurements 2D Linear Measurements IVSd: 1.21 0.6-0.9/0.6-1.0 cm LVIDd: 4.95 3.9-5.3/4.2-5.9 cm LVIDd Index: 2.15 2.4-3.2/2.2-3.1 cm/m2 LVIDs: 3.33 2.0-3.6 cm LVPWd: 0.95 0.7-1.1 cm LA Diam: 3.50 2.7-3.8/3.0-4.0 cm LAIDs Index: 1.52 1.5-2.3 cm/m2 LV Mass: 248.14 67-162/88-224 g LV Mass Index: 107.89 43-95/49-115 g/m2 LVOT Diam: 2.10 3.0+(-)1.3 cm 2D Systolic Function EF 4C: 65.60 >55% Mitral Valve MV VTI: 0.27 MV Pk Jason: 0.80 MV Mn Jason: 0.54 MV Pk Grad: 3.00 MV Mn Grad: 1.00 MV Pk E: 0.63 MV PK A: 0.51 MV Decel Time: 264.00 E/A: 1.20 E'Lateral: 9.79 E'Medial: 6.96 E/E' Med: 9.00 E/E' Lat: 6.40 PHT: 77.00 MVA PHT: 2.86 MVA Continuity: 2.87 Decel [place]: 2.37 Aortic Valve AoV Pk Jason: 1.55 AoV Mn Jason: 1.04 AoV VTI: 0.29 AoV Pk Grad: 10.00 Aov Mn Grad: 5.00 CHRISTIANA Cont.VTI: 2.72 LVOT LVOT Pk Jason: 0.97 LVOT Mn Jason: 0.62 LVOT VTI: 0.22 LVOT Pk Grad: 4.00 LVOT Mn Grad: 2.00 LVOT Diam: 2.10 LVOT Area: 3.46 Diastolic Function MV Pk E: 0.63 MV Pk A: 0.51 E/A: 1.20 E'Medial: 6.96 E/E' Med: 9.00 E' Laterial: 9.79 E/E' Lat: 6.40 Right Ventricle TAPSE (mm): 18.30 TVS' Jason: 10.60 Tricuspid Valve TR Pk Jason: 1.72 TR Pk Grad: 12.00 RA Press: 3.00 RVSP: 15.00 Great Vessels Aorta Sinus of Valsalva: 3.48 2.0-3.[address] [place]: 2.78 1.7-3.4 cm Ao Asc: 3.90 2.1-3.4 cm Updated in Other Vendor System with Status of Final Denys Barber MD electronically signed on 10/28/2022 2:59:38 PM with status of Final
--- NOTE | 2022-10-27 08:52 | CA_ITS ---
Acquisition Time: 2022-10-27 10:21:36 Total Exercise Time: 00:08:35 Test Indications: AFIB Medications: SEE H Protocol: RANDY Max HR: 146 BPM 90% of Pred: 161 BPM Max BP: 148/090 mmHG Max Work Load: 10.1 METS Exercise stress test exercise 8 min 35 sec of Randy protocol acheving 90% MPHR without anignal symptoms, with isolated PVCs, with normotensive response to exercise, without EKG changes during exercise however borderline changes noted in recovery. Nuclear images pending. Test reviewed with Dr. Barber. Referred By: Sidney Collier Overread By: ANGELITA ESCALANTE
== END ==
LOC: HO.CARD 08:49
PROVIDERS: PCP Nurse Practitioner Family; Visit Provider Internal Medicine
DX: R07.89 Other chest pain (principal); R07.2 Precordial pain; I25.10 Atherosclerotic heart disease of native coronary artery without angina pectoris
CPT/HCPCS: 78452; 93017; 93306; A9500; Q9957

== ENCOUNTER → 2022-11-09 08:04 | Outpatient (BNVA) | payer OTHER, SELFPAY | PROVIDERS: PCP Nurse Practitioner Family; Visit Provider Internal Medicine | DX: I48.0 Paroxysmal atrial fibrillation (principal); Z51.81 Encounter for therapeutic drug level monitoring; Z79.01 Long term (current) use of anticoagulants | CPT/HCPCS: 85610; 99211 ==

== ENCOUNTER → 2022-11-16 09:48 | Outpatient (BNVA) | payer OTHER, SELFPAY | PROVIDERS: PCP Nurse Practitioner Family; Visit Provider Internal Medicine | DX: I48.0 Paroxysmal atrial fibrillation (principal); Z79.01 Long term (current) use of anticoagulants; Z51.81 Encounter for therapeutic drug level monitoring | CPT/HCPCS: 85610; 99211 ==

== ENCOUNTER → 2022-11-23 08:41 | Outpatient (BNVA) | payer OTHER, SELFPAY | PROVIDERS: PCP Nurse Practitioner Family; Visit Provider Internal Medicine | DX: I48.0 Paroxysmal atrial fibrillation (principal); Z79.01 Long term (current) use of anticoagulants; Z51.81 Encounter for therapeutic drug level monitoring | CPT/HCPCS: 85610; 99211 ==

== ENCOUNTER 2022-12-07 08:10 | Outpatient (AMB) | payer OTHER, SELFPAY ==
--- NOTE | 2022-12-07 08:17 | MHC.OFFVISCO ---
Intake Intake Visit Reasons: Anticoagulation Allergies atorvastatin [Lipitor] Adverse Reaction (Intermediate, Verified 12/07/22 08:13) didn't tolerate rosuvastatin [Crestor] Adverse Reaction (Intermediate, Verified 12/07/22 08:13) didn't tolerate venlafaxine [From Effexor] Adverse Reaction (Intermediate, Verified 12/07/22 08:13) did not tolerate Medication List - Last Reconciled 12/07/22 by Jonelle Palma, RN coenzyme Q10 (CoQ-10) 100 mg PO DAILY evolocumab (Repatha SureClick) 140 mg subcut Q2W levothyroxine 50 mcg PO DAILY lisinopril 10 mg PO DAILY metoprolol tartrate 75 mg (1.5 x 50 mg) PO BID niacin PO warfarin See Protocol 5mg daily to be adjusted related to INR value. orally daily; Nursing Note INR: 2.2-in therapeutic range Medications and supplements reviewed- no changes No changes in health, diet, medications, or supplements, Denies any signs and symptoms of bleeding or bruising or clotting. Bleeding, bruising, clotting discussed Nutritional guidance given Dose: 7.5 x 2, 5mg x 10mg x 5 F/U INR: 3 weeks Patient verbalizes understanding of instructions given Anti-Coag Initial Assessment Social Hx Patient Tobacco Use Status: Former Tobacco user Quit Date: 2011 alcohol intake: former Alcohol intake frequency: former alcohol drinker Cardiovascular Hx: HTN, CAD, TN and Arrhythmias Endocrine Hx: Thyroid Disease Musculoskeletal Hx: Arthritis (knees, neck and back) Blood Disorder Hx: Hyperlipidemia GI Hx: Diverticulosis (hx diverticulitis- bowel resection ) Neurological Hx: Migraines/Headaches Cancer HX: No Psych. Illness/Depression: No Coding Level of Care Code Est Patient Level 1 Diagnoses Current use of anticoagulant therapy Z79.01 Assessment & Plan Assessment & Plan (1) Current use of anticoagulant therapy: Code(s): Z79.01 - supervisor intermediates (current) use of anticoagulants Category: Medical
[2022-12-07 08:18] LABS: Prothrombin Time Whole Bld POC 26.9 sec (11.1-13.5); ~PT, ~INR - Anti Coag Clinic 2.2 (0.9-1.1)
== END 2022-12-07 08:48 | disposition home or self-care (01) ==
LOC: HO.ACS 08:10
PROVIDERS: PCP Nurse Practitioner Family; Visit Provider Internal Medicine
DX: Z79.01 Long term (current) use of anticoagulants (principal)

== ENCOUNTER → 2022-12-07 08:10 | Outpatient (BNVA) | payer OTHER, SELFPAY | PROVIDERS: PCP Nurse Practitioner Family; Visit Provider Internal Medicine | DX: I48.0 Paroxysmal atrial fibrillation (principal); Z51.81 Encounter for therapeutic drug level monitoring; Z79.01 Long term (current) use of anticoagulants | CPT/HCPCS: 85610; 99211 ==

== ENCOUNTER 2022-12-21 10:06 | Outpatient (AMB) | payer OTHER, SELFPAY ==
--- NOTE | 2022-12-21 10:12 | A.OFFVIS_ITS ---
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 Accompanied by: Self / Same As Patient Allergies atorvastatin [Lipitor] Adverse Reaction (Intermediate, Verified 12/21/22 10:14) didn't tolerate rosuvastatin [Crestor] Adverse Reaction (Intermediate, Verified 12/21/22 10:14) didn't tolerate venlafaxine [From Effexor] Adverse Reaction (Intermediate, Verified 12/21/22 10:14) did not tolerate Medication List - Last Reconciled 12/21/22 by Sidney Collier MD coenzyme Q10 (CoQ-10) 100 mg PO DAILY evolocumab (Repatha SureClick) 140 mg subcut Q2W levothyroxine 50 mcg PO DAILY lisinopril 10 mg PO DAILY metoprolol tartrate 75 mg (1.5 x 50 mg) PO BID niacin PO warfarin See Protocol 5mg daily to be adjusted related to INR value. orally daily; HPI HPI Comments History of Present Illness Details Deacon returns for follow-up regarding atrial fibrillation as well as coronary disease. He has undergone coronary artery bypass surgery 2011. Few months back, he thought that he was in atrial fibrillation came to the ER. He also had some chest pressure that time. Then workup in the ER was unremarkable and he was discharged home. Since that time, he states he actually feeling pretty good. No specific complaints like chest pain or shortness of breath or in fact anything cardiac sounding. Otherwise, history of statin intolerance and he has high lipids. He was on Praluent but there was some issue with insurance and he did not take it for a while. Then, more recently he is back on it. [facility] Medical History (Updated 09/24/22 @ 08:03 by Jonelle Palma RN) Acquired hypothyroidism Afib Atherosclerotic cardiovascular disease Radha syndrome Essential hypertension Mixed hyperlipidemia PAF (paroxysmal atrial fibrillation) Sleep apnea Surgical History History of colectomy History of esophagogastroduodenoscopy (EGD) Hx of CABG Hx of colonoscopy Family History Father Esophageal cancer Stomach cancer Mother Heart problem Brother No problems noted. 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 Current occupational exposures/hazards: Yes Cognitive needs: No Hearing needs: No Vision needs: No Review of Systems Const Denies weakness ENT Denies dizziness Card Denies chest pain, Denies chest pain with activity, Denies syncope, Denies rapid heart rate, Denies pedal edema, Denies edema, Denies leg edema, Denies lightheadedness, Denies palpitations, Denies dyspnea, Denies dyspnea on exertion and Denies orthopnea Resp Denies cough, Denies dyspnea and Denies dyspnea on exertion GI Denies hematochezia and Denies change in stool character Musc Denies abnormal gait, Denies muscle cramps, Denies muscle weakness, Denies numbness, Denies radiating pain into limb and Denies tingling Neuro Denies abnormal gait, Denies dizziness, Denies syncope, Denies numbness, Denies tingling and Denies weakness Endo Denies palpitations Physical Exam Vital Signs: Last Vital Signs Pulse 57 12/21/22 10:13 BP 118/76 12/21/22 10:13 BMI result Body Mass Index 34.9 Const General: comfortable and no acute distress Orientation/consciousness: patient oriented x3 HEENT Other: Unremarkable Head: Yes normal to inspection Neck Neck: Yes normal visual inspection Chest Chest palpation & inspection: normal inspection of the chest Resp Auscultation: clear to auscultation bilaterally Cardio Palpation: normal PMI Heart sounds: S1 normal heart sound present, S2 normal heart sound present, no gallops, no murmurs and no rubs GI Palpation (GI): Soft to palpation Back/Spine/Pelvis Other: unremarkable Skin General skin exam: no rashes or lesions noted Neuro General: patient oriented x3 Extrem General: Yes normal to inspection Psych Mental Status: mental status grossly normal Assessment & Plan Assessment & Plan (1) Atherosclerotic cardiovascular disease: Code(s): I25.10 - Atherosclerotic heart disease of [place] coronary artery without angina pectoris Plan: In the recent echocardiogram, LVEF 60-65%. Basal inferior/inferoseptal hypokinesis. No significant valvular findings. Mild ascending aortic dilatation at 3.9 cm. In the stress test, he was able to exercise for 10.1 Mets. Reached 90% of max predicted heart rate. No angina. Normal blood pressure response. Borderline EKG changes during recovery. Perfusion imaging reported normal. Patient himself has absolutely no symptoms. Optimal medical therapy. Advised report if any recurrence of chest pain or other concerns. (2) PAF (paroxysmal atrial fibrillation): Code(s): I48.0 - Paroxysmal atrial fibrillation Plan: Stable. Remains on beta-blockers and warfarin. (3) Essential hypertension: Code(s): I10 - Essential (primary) hypertension Plan: Stable. No changes. (4) Mixed hyperlipidemia: Code(s): E78.2 - Mixed hyperlipidemia Plan: Statin intolerance due to myalgias. He is back on Praluent. Check lipids. Orders: Orders Lipid Panel Today E78.2 - Mixed hyperlipidemia, I10 - Essential (primary) hypertension, I25.10 - Atherosclerotic heart disease of [place] coronary artery without angina pectoris, I48.0 - Paroxysmal atrial fibrillation LDL Cholesterol Direct Today E78.2 - Mixed hyperlipidemia, I25.10 - Atherosclerotic heart disease of [place] coronary artery without angina pectoris Coding Level of Care Code Est Pt Level 4 (27613) Diagnoses Atherosclerotic cardiovascular disease I25.10 PAF (paroxysmal atrial fibrillation) I48.0 Essential hypertension I10 Mixed hyperlipidemia E78.2
[2022-12-21 10:13] VITALS: BP 118/76; PULSE 57; BMI 34.9
== END 2022-12-21 10:28 | disposition home or self-care (01) ==
PROVIDERS: PCP Nurse Practitioner Family; Referring Provider Nurse Practitioner Family; Visit Provider Internal Medicine
DX: I25.10 Atherosclerotic heart disease of native coronary artery without angina pectoris (principal); I48.0 Paroxysmal atrial fibrillation; I10 Essential (primary) hypertension; E78.2 Mixed hyperlipidemia
CPT/HCPCS: 99214

== ENCOUNTER → 2022-12-21 10:06 | Outpatient (BNVA) | payer OTHER, SELFPAY | PROVIDERS: PCP Nurse Practitioner Family; Referring Provider Nurse Practitioner Family; Visit Provider Internal Medicine | DX: I48.0 Paroxysmal atrial fibrillation (principal); I25.10 Atherosclerotic heart disease of native coronary artery without angina pectoris; I10 Essential (primary) hypertension; I24.1 Dressler's syndrome; E78.2 Mixed hyperlipidemia; Z87.891 Personal history of nicotine dependence; Z79.4 Long term (current) use of insulin; Z79.01 Long term (current) use of anticoagulants; Z95.1 Presence of aortocoronary bypass graft | CPT/HCPCS: 99212 ==

== ENCOUNTER 2022-12-28 08:06 | Outpatient (AMB) | payer OTHER, SELFPAY ==
--- NOTE | 2022-12-28 08:09 | MHC.OFFVISCO ---
Intake Intake Visit Reasons: Anticoagulation Allergies atorvastatin [Lipitor] Adverse Reaction (Intermediate, Verified 12/28/22 08:06) didn't tolerate rosuvastatin [Crestor] Adverse Reaction (Intermediate, Verified 12/28/22 08:06) didn't tolerate venlafaxine [From Effexor] Adverse Reaction (Intermediate, Verified 12/28/22 08:06) did not tolerate Medication List - Last Reconciled 12/28/22 by Jonelle Palma, RN coenzyme Q10 (CoQ-10) 100 mg PO DAILY evolocumab (Repatha SureClick) 140 mg subcut Q2W levothyroxine 50 mcg PO DAILY lisinopril 10 mg PO DAILY metoprolol tartrate 75 mg (1.5 x 50 mg) PO BID niacin PO warfarin See Protocol 5mg daily to be adjusted related to INR value. orally daily; Nursing Note INR: 2.1- in therapeutic range Medications and supplements reviewed- no changes No changes in health, diet, medications, or supplements, Denies any signs and symptoms of bleeding or bruising or clotting. Bleeding, bruising, clotting discussed Nutritional guidance given Dose: 7.5mg x 2, 10mg x 5 F/U INR: 2 weeks as pt will be away after Patient verbalizes understanding of instructions given Anti-Coag Initial Assessment Social Hx Patient Tobacco Use Status: Former Tobacco user Quit Date: 2011 alcohol intake: former Alcohol intake frequency: former alcohol drinker Cardiovascular Hx: HTN, CAD, [place] and Arrhythmias Endocrine Hx: Thyroid Disease Musculoskeletal Hx: Arthritis (knees, neck and back) Blood Disorder Hx: Hyperlipidemia GI Hx: Diverticulosis (hx diverticulitis- bowel resection ) Neurological Hx: Migraines/Headaches Cancer HX: No Psych. Illness/Depression: No Coding Level of Care Code Est Patient Level 1 Diagnoses Current use of anticoagulant therapy Z79.01 Assessment & Plan Assessment & Plan (1) Current use of anticoagulant therapy: Code(s): Z79.01 - [facility] (current) use of anticoagulants Category: Medical
[2022-12-28 08:10] LABS: Prothrombin Time Whole Bld POC 24.8 sec (11.1-13.5); ~PT, ~INR - Anti Coag Clinic 2.1 (0.9-1.1)
== END 2022-12-28 08:13 | disposition home or self-care (01) ==
LOC: HO.ACS 08:06
PROVIDERS: PCP Nurse Practitioner Family; Visit Provider Internal Medicine
DX: Z79.01 Long term (current) use of anticoagulants (principal)

== ENCOUNTER → 2022-12-28 08:06 | Outpatient (BNVA) | payer OTHER, SELFPAY | PROVIDERS: PCP Nurse Practitioner Family; Visit Provider Internal Medicine | DX: I48.0 Paroxysmal atrial fibrillation (principal); Z79.01 Long term (current) use of anticoagulants; Z51.81 Encounter for therapeutic drug level monitoring | CPT/HCPCS: 85610; 99211 ==

== ENCOUNTER 2023-01-05 10:30 | Outpatient (REF) | payer OTHER, SELFPAY ==
[2023-01-05 13:48] LABS: Alanine Aminotransferase 40 U/L (0-40); Albumin Level 4.3 g/dL (3.5-5.0); Alkaline Phosphatase 53 U/L (39-117); Anion Gap 12 (12-20); Aspartate Amino Transferase 34 U/L (5-37); Bilirubin Total 0.4 mg/dL (0.0-1.0); Blood Urea Nitrogen 18 mg/dL (9-16); Calcium 9.6 mg/dL (8.4-10.2); Carbon Dioxide 25 mmol/L (22-29); Chloride 107 mmol/L (96-108); Cholesterol 152 mg/dL (<200); Estimated Glomerular Filt Rate > 60; Glucose Random 114 mg/dL (60-115); HDL Cholesterol 36 mg/dL (>40); LDL Cholesterol Calculated 83 mg/dL (<100); Potassium 4.2 mmol/L (3.3-5.1); Sodium 140 mmol/L (135-145); Total Protein 7.3 g/dL (6.5-8.0); Triglycerides 168 mg/dL (<150)
[2023-01-06 18:24] LABS: LDL Cholesterol Direct 96 mg/dL (<100)
== END 2023-01-05 10:31 | disposition home or self-care (01) ==
LOC: HO.HMGCLDS 10:30
PROVIDERS: Absent Provider Internal Medicine; PCP Nurse Practitioner Family; Visit Provider Nurse Practitioner Family
DX: I25.10 Atherosclerotic heart disease of native coronary artery without angina pectoris (principal); E78.2 Mixed hyperlipidemia; I10 Essential (primary) hypertension; I48.0 Paroxysmal atrial fibrillation
CPT/HCPCS: 36415; 80053; 80061; 83721

== ENCOUNTER 2023-01-11 08:13 | Emergency (ER) | payer OTHER, SELFPAY ==
--- NOTE | ~2023-01-11 | XR_ITS ---
EXAMINATION: XR FOOT, LEFT CLINICAL INFORMATION: Pain and swelling in left foot COMPARISON: None available. TECHNIQUE: AP, lateral, and oblique views of the left foot. FINDINGS: The bones and soft tissues are normal. No fracture. Alignment is anatomic. Joint spaces are maintained, except of mild narrowing and marginal spurring of the first metatarsal phalangeal joint. XR/XR foot LT min 3V IMPRESSION: Mild degenerative changes at the first metatarsal-phalangeal joint
[2023-01-11 08:21] VITALS: BP 147/91; PULSE 68; RESP 16; TEMP 36.3; O2SAT 97; BMI 34.8
--- NOTE | 2023-01-11 09:23 | ED.LOWEXIN ---
HPI - Extremity Injury (Lower) General Chief Complaint: Extremity Injury, Lower Stated Complaint: L foot pain Time Seen by Provider: 01/11/23 09:01 Source: patient Mode of arrival: ambulatory Limitations: no limitations History of Present Illness HPI Narrative: 57 yo male with history of afib on coumadin, HTN, HLD, CAD, hypothyroidism who presents to the ER for evaluation of left foot pain for the last 1 week. 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 The pain was located on the plantar aspect of the foot below with the ball of the foot. yesterday while walking down the stairs he heard a pop and felt increased pain on the plantar aspect of the foot, right in the middle of the foot. He has tenderness when he palpates the area. This morning he was also noting some numbness at the distal plantar aspect of the foot. He is not diabetic. He no open wounds. No heel pain. No bruising or swelling. Is able to walk, now most comfortably in sneakers. MD complaint: foot injury Onset (ago): week(s) (1) Injury: Left: hip Type of Injury: unknown (walking down stairs) Place: home Severity: moderate Relieving factors: immobilization and rest Exacerbating factors: weight bearing, movement and palpation Context: walking Associated symptoms: snap/pop sensation, numbness (distal plantar foot) and ambulatory Other symptoms: none Related Data Home Medications Medication Instructions Recorded Confirmed coenzyme Q10 100 mg capsule 100 mg PO DAILY 10/06/22 12/21/22 (CoQ-10) niacin PO 10/06/22 12/21/22 Previous Rx's Medication Instructions Recorded metoprolol tartrate 50 mg tablet 75 mg PO BID #270 tabs 05/19/22 evolocumab 140 mg/mL subcutaneous 140 mg subcut Q2W #6 mL 10/05/22 pen injector (Cezar Taylor) lisinopril 10 mg tablet 10 mg PO DAILY #90 tabs 10/19/22 levothyroxine 50 mcg tablet 50 mcg PO DAILY #90 tabs 11/25/22 warfarin 5 mg tablet See Rx Instructions PO DAILY #156 12/07/22 tabs Allergies Allergy/AdvReac Type Severity Reaction Status Date / Time atorvastatin [Lipitor] AdvReac Intermediate didn't Verified 01/11/23 08:20 tolerate rosuvastatin [Crestor] AdvReac Intermediate didn't Verified 01/11/23 08:20 tolerate venlafaxine [From Effexor] AdvReac Intermediate did not Verified 01/11/23 08:20 tolerate Review of Systems Review of Systems: Yes all other systems are reviewed and are negative [facility] Past Medical History Medical History (Updated 01/11/23 @ 09:34 by WILLARD Hall) Acquired hypothyroidism Afib Atherosclerotic cardiovascular disease Radha syndrome Essential hypertension Mixed hyperlipidemia PAF (paroxysmal atrial fibrillation) Sleep apnea Surgical History History of colectomy History of esophagogastroduodenoscopy (EGD) Hx of CABG Hx of colonoscopy Family History Family History Father Esophageal cancer Stomach cancer Mother Heart problem Brother No problems noted. 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 Oriented X3. No acute distress. HEENT: normal inspection CVS: Normal heart rate and rhythm. Pulses normal. Respiratory: No respiratory distress. Skin: Skin warm and dry. Normal skin color. Normal skin turgor. No rashes. Extremities: normal inspection of the left foot. warm and well perfused, 2+ dp/pd pulses. normal ROM of the ankle and toes. on the plantar aspect there is point tenderness in the middle portion of the foot without associated swelling or ecchymosis. Neuro: Oriented X 3. No motor deficit. No sensory deficit. ambulatory Medical Decision Making Medical Decision Making MDM Narrative: 57 yo male with history of afib on coumadin, HTN, HLD, CAD, hypothyroidism who presents to the ER for evaluation of left foot pain for the last 1 week. Exam is only revealing for some tenderness on the plantar aspect. XR reviewed - no acute fractures identified. Will treat with RICE, Tylenol, supportive care and refer to ortho if no improvement. RADHA wrap applied. stable for d/c home Differential Diagnosis Differential Diagnoses: The differential diagnosis associated with the presentation includes foot fracture, foot sprain, plantar fasciitis, tendon rupture Independent Interpretation I performed an independent interpretation of an: Plain X-Ray Interpretation: no appreciated fracture Radiology Impression Discussion of test interpretation with radiology: I have reviewed the radiologist's reading. Radiologist Impression: EXAMINATION: XR FOOT, LEFT CLINICAL INFORMATION: Pain and swelling in left foot? COMPARISON: None available.? TECHNIQUE: AP, lateral, and oblique views of the left foot. FINDINGS: The bones and soft tissues are normal. No fracture. Alignment is anatomic. Joint spaces are maintained, except of mild narrowing and marginal spurring of the first metatarsal phalangeal joint.? XR/XR foot LT min 3V IMPRESSION: Mild degenerative changes at the first metatarsal-phalangeal joint External Record Review External record reviewed: Outpatient record and Prior outpatient labs Prescription Management I considered prescription management with: Pain Medication Chronic Conditions Patient?s care impacted by: Hypertension and Other (afib) Critical Care Time Critical Care Time Critical Care Time: No Discharge Plan Discharge Clinical Impression: Acute pain of left foot Patient Disposition: Home, Self-Care Instructions: Metatarsalgia (DC) Additional Instructions: Your x-ray today did not show any broken bones Rest your foot and elevate your it when possible. Recommend RADHA wrap for support and compression. Use ice several times per day for the next 48 hours. You may bear weight as tolerated. If pain is too severe, use crutches until better. Take Tylenol as needed for pain. Recommend following up with Orthopedics for further evaluation and treatment - name and number below, call for an appointment Follow up with your doctor as needed. Prescriptions: No Action metoprolol tartrate 50 mg tablet 75 mg PO BID Qty: 270 1RF Rx Instructions: OVERDUE FOR APPT. TO CONTINUE RECEIVING FUTURE REFIILS PLEASE CALL [phone] TO SCHEDULE for 2022 rommel SureClick 140 mg/mL pen injector 140 mg subcut Q2W Qty: 6 3RF Rx Instructions: WILLARD completed. Cezar approved from 10/01/22 - 03/30/2023 lisinopril 10 mg tablet 10 mg PO DAILY Qty: 90 1RF levothyroxine 50 mcg tablet 50 mcg PO DAILY Qty: 90 1RF warfarin 5 mg tablet See Rx Instructions PO DAILY Qty: 156 3RF Protocol: Dose Management Condition: Wednesday (Week One) Dose/Route: 10 mg Instruction: 2 x 5 mg tablets Condition: Wednesday Dose/Route: 10 mg Instruction: 2 x 5 mg tablets Condition: Wednesday Dose/Route: 7.5 mg Instruction: 1.5 x 5 mg tablets Condition: Wednesday Dose/Route: 10 mg Instruction: 2 x 5 mg tablets Condition: Dose/Route: 10 mg Instruction: 2 x 5 mg tablets Condition: Wednesday Dose/Route: 7.5 mg Instruction: 1.5 x 5 mg tablets Condition: Wednesday Dose/Route: 10 mg Instruction: 2 x 5 mg tablets Condition: Wednesday (Week Two) Dose/Route: 10 mg Instruction: 2 x 5 mg tablets Condition: Wednesday Dose/Route: 10 mg Instruction: 2 x 5 mg tablets Condition: Wednesday Dose/Route: 7.5 mg Instruction: 1.5 x 5 mg tablets Condition: Wednesday Dose/Route: 10 mg Instruction: 2 x 5 mg tablets Condition: Dose/Route: 10 mg Instruction: 2 x 5 mg tablets Condition: Wednesday Dose/Route: 7.5 mg Instruction: 1.5 x 5 mg tablets Condition: Wednesday Dose/Route: 10 mg Instruction: 2 x 5 mg tablets Protocol Text: Adjustment Start Date: Wednesday12/28/22 INR Value: Pending INR Date: 12/28/22 Recheck Date: 01/12/23 Additional Instructions: cont reg dosing call with any changes in medications Rx Instructions: 5mg daily to be adjusted related to INR value. orally daily; coenzyme Q10 [CoQ-10] 100 mg capsule 100 mg PO DAILY niacin PO Referrals: [facility] Orthopedic Surgeons [Provider Group] Interventions: ED Discharge Assessment Last Done: 01/11/23 09:48 Discharge Date/Time: 01/11/23 09:49
--- NOTE | 2023-01-11 09:44 | MHC.EDTECH ---
Geovani wrap applied to R ankle, tolerated well
== END 2023-01-11 09:49 | disposition home or self-care (01) ==
PROVIDERS: Emergency Provider Emergency Medicine; PCP Nurse Practitioner Family
DX: M79.672 Pain in left foot (principal); I25.10 Atherosclerotic heart disease of native coronary artery without angina pectoris; I10 Essential (primary) hypertension
CPT/HCPCS: 73630; 99282; 99283

== ENCOUNTER 2023-01-12 08:15 | Outpatient (AMB) | payer OTHER, SELFPAY ==
[2023-01-12 08:22] LABS: Prothrombin Time Whole Bld POC 27.8 sec (11.1-13.5); ~PT, ~INR - Anti Coag Clinic 2.3 (0.9-1.1)
--- NOTE | 2023-01-12 08:29 | MHC.OFFVISCO ---
Intake Intake Visit Reasons: Anticoagulation Allergies atorvastatin [Lipitor] Adverse Reaction (Intermediate, Verified 01/12/23 08:16) didn't tolerate rosuvastatin [Crestor] Adverse Reaction (Intermediate, Verified 01/12/23 08:16) didn't tolerate venlafaxine [From Effexor] Adverse Reaction (Intermediate, Verified 01/12/23 08:16) did not tolerate Medication List - Last Reconciled 01/12/23 by Mago Schmidt, RN coenzyme Q10 (CoQ-10) 100 mg PO DAILY evolocumab (Repatha SureClick) 140 mg subcut Q2W levothyroxine 50 mcg PO DAILY lisinopril 10 mg PO DAILY metoprolol tartrate 75 mg (1.5 x 50 mg) PO BID niacin PO warfarin See Protocol 5mg daily to be adjusted related to INR value. orally daily; Nursing Note INR: 2.3 in therapeutic range Medications and supplements reviewed PT HAS A FOOT INJURY SOUNDS TO BE TENDON OR LIGAMENT(HE HEARD A LOUD SNAP ) ENC TO MAKE ORTHO APPT AND REQUEST A MRI - HE WENT TO ER HAD XRAY - NO FRACTURE TAKING OCC TYLEOL WITH OUT RELIEF LEAVING FOR [place] TOMORROW TO FIX HOUSE - ANOTHER STORM COMING ALSO Denies any signs and symptoms of bleeding or bruising or clotting. Bleeding, bruising, clotting discussed Nutritional guidance given Dose: 7.5MG X 2 DAYS/ 10MG X 5 DAYS F/U INR: 1 WEEK POST [place] verbalizes understanding of instructions given Anti-Coag Initial Assessment Social Hx Patient Tobacco Use Status: Former Tobacco user Quit Date: 2011 alcohol intake: former Alcohol intake frequency: former alcohol drinker Cardiovascular Hx: HTN, CAD, [place] and Arrhythmias Endocrine Hx: Thyroid Disease Musculoskeletal Hx: Arthritis (knees, neck and back) Blood Disorder Hx: Hyperlipidemia GI Hx: Diverticulosis (hx diverticulitis- bowel resection ) Neurological Hx: Migraines/Headaches Cancer HX: No Psych. 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
== END 2023-01-12 08:32 | disposition home or self-care (01) ==
LOC: HO.ACS 08:15
PROVIDERS: PCP Nurse Practitioner Family; Visit Provider Internal Medicine
DX: Z79.01 Long term (current) use of anticoagulants (principal)

== ENCOUNTER → 2023-01-12 08:15 | Outpatient (BNVA) | payer OTHER, SELFPAY | PROVIDERS: PCP Nurse Practitioner Family; Visit Provider Internal Medicine | DX: I48.0 Paroxysmal atrial fibrillation (principal); Z79.01 Long term (current) use of anticoagulants; Z51.81 Encounter for therapeutic drug level monitoring | CPT/HCPCS: 85610; 99211 ==

== ENCOUNTER 2023-02-03 08:16 | Outpatient (AMB) | payer OTHER, SELFPAY ==
--- NOTE | 2023-02-03 08:23 | MHC.OFFVISCO ---
Intake Intake Visit Reasons: Anticoagulation Allergies atorvastatin [Lipitor] Adverse Reaction (Intermediate, Verified 02/03/23 08:17) didn't tolerate rosuvastatin [Crestor] Adverse Reaction (Intermediate, Verified 02/03/23 08:17) didn't tolerate venlafaxine [From Effexor] Adverse Reaction (Intermediate, Verified 02/03/23 08:17) did not tolerate Medication List - Last Reconciled 02/03/23 by Jonelle Palma RN coenzyme Q10 (CoQ-10) 100 mg PO DAILY evolocumab (Repatha SureClick) 140 mg subcut Q2W levothyroxine 50 mcg PO DAILY lisinopril 10 mg PO DAILY metoprolol tartrate 75 mg (1.5 x 50 mg) PO BID niacin PO [TUMERIC PO] warfarin See Protocol 5mg daily to be adjusted related to INR value. orally daily; Nursing Note INR 1.2-? out of therapeutic range- denies missed doses Medications and supplements reviewed Patient status: had been in [place] for 2 weeks Medications or supplements: no changes Diet: same, has had more greens Denies any signs and symptoms of bleeding or clotting or unusual bruising Bleeding, bruising, clotting discussed - aware at risk for clotting Nutritional guidance given: no greens for 2-3 days, eat reds to raise Dose: 12.5mg today and tomm then cont 10mg x 5, 7.5mg x 2 F/U INR Date : wed02/08/23 Patient verbalizing understanding of instructions given. pcp office danyell byrd called with low inr/dosing and f/u appt- spoke to vickey at 0941. composed note to pcp Anti-Coag Initial Assessment Social Hx Patient Tobacco Use Status: Former Tobacco user Quit Date: 2011 alcohol intake: former Alcohol intake frequency: former alcohol drinker Cardiovascular Hx: HTN, CAD, [place] and Arrhythmias Endocrine Hx: Thyroid Disease Musculoskeletal Hx: Arthritis (knees, neck and back) Blood Disorder Hx: Hyperlipidemia GI Hx: Diverticulosis (hx diverticulitis- bowel resection ) Neurological Hx: Migraines/Headaches Cancer HX: No Psych. Illness/Depression: No Coding Level of Care Code Est Patient Level 1 Diagnoses Current use of anticoagulant therapy Z79.01 Assessment & Plan Assessment & Plan (1) Current use of anticoagulant therapy: Code(s): Z79.01 - correction (current) use of anticoagulants Category: Medical
[2023-02-03 08:24] LABS: Prothrombin Time Whole Bld POC 14.9 sec (11.1-13.5); ~PT, ~INR - Anti Coag Clinic 1.2 (0.9-1.1)
== END 2023-02-03 09:41 | disposition home or self-care (01) ==
LOC: HO.ACS 08:16
PROVIDERS: PCP Nurse Practitioner Family; Visit Provider Internal Medicine
DX: Z79.01 Long term (current) use of anticoagulants (principal)

== ENCOUNTER → 2023-02-03 08:16 | Outpatient (BNVA) | payer OTHER, SELFPAY | PROVIDERS: PCP Nurse Practitioner Family; Visit Provider Internal Medicine | DX: I48.0 Paroxysmal atrial fibrillation (principal); Z79.01 Long term (current) use of anticoagulants; Z51.81 Encounter for therapeutic drug level monitoring | CPT/HCPCS: 85610; 99211 ==

== ENCOUNTER 2023-02-08 08:15 | Outpatient (AMB) | payer OTHER, SELFPAY ==
--- NOTE | 2023-02-08 08:24 | MHC.OFFVISCO ---
Intake Intake Visit Reasons: Anticoagulation Allergies atorvastatin [Lipitor] Adverse Reaction (Intermediate, Verified 02/08/23 08:21) didn't tolerate rosuvastatin [Crestor] Adverse Reaction (Intermediate, Verified 02/08/23 08:21) didn't tolerate venlafaxine [From Effexor] Adverse Reaction (Intermediate, Verified 02/08/23 08:21) did not tolerate Medication List - Last Reconciled 02/08/23 by Jonelle Palma RN coenzyme Q10 (CoQ-10) 100 mg PO DAILY evolocumab (Repatha SureClick) 140 mg subcut Q2W levothyroxine 50 mcg PO DAILY lisinopril 10 mg PO DAILY metoprolol tartrate 75 mg (1.5 x 50 mg) PO BID niacin PO [TUMERIC PO] warfarin See Protocol 5mg daily to be adjusted related to INR value. orally daily; Nursing Note INR: 2.1- in therapeutic range Medications and supplements reviewed- no changes No changes in health, diet, medications, or supplements, Denies any signs and symptoms of bleeding or bruising or clotting. Bleeding, bruising, clotting discussed Nutritional guidance given Dose: 7.5mg x 2, 10mg x 5 F/U INR: 2 weeks Patient verbalizes understanding of instructions given Anti-Coag Initial Assessment Social Hx Patient Tobacco Use Status: Former Tobacco user Quit Date: 2011 alcohol intake: former Alcohol intake frequency: former alcohol drinker Cardiovascular Hx: HTN, CAD, [place] and Arrhythmias Endocrine Hx: Thyroid Disease Musculoskeletal Hx: Arthritis (knees, neck and back) Blood Disorder Hx: Hyperlipidemia GI Hx: Diverticulosis (hx diverticulitis- bowel resection ) Neurological Hx: Migraines/Headaches Cancer HX: No Psych. Illness/Depression: No Coding Level of Care Code Est Patient Level 1 Diagnoses Current use of anticoagulant therapy Z79.01 Results AMB INR Fingerstick AMB INR Fingerstick 2.1 Last Edit by Jonelle Palma RN on 02/08/23 08:26 Assessment & Plan Assessment & Plan (1) Current use of anticoagulant therapy: Code(s): Z79.01 - [facility] (current) use of anticoagulants Category: Medical
[2023-02-08 08:25] LABS: Prothrombin Time Whole Bld POC 25.4 sec (11.1-13.5); ~PT, ~INR - Anti Coag Clinic 2.1 (0.9-1.1)
== END 2023-02-08 08:30 | disposition home or self-care (01) ==
LOC: HO.ACS 08:15
PROVIDERS: PCP Nurse Practitioner Family; Visit Provider Internal Medicine
DX: Z79.01 Long term (current) use of anticoagulants (principal)

== ENCOUNTER → 2023-02-08 08:15 | Outpatient (BNVA) | payer OTHER, SELFPAY | PROVIDERS: PCP Nurse Practitioner Family; Visit Provider Internal Medicine | DX: I48.0 Paroxysmal atrial fibrillation (principal); Z79.01 Long term (current) use of anticoagulants; Z51.81 Encounter for therapeutic drug level monitoring | CPT/HCPCS: 85610; 99211 ==

== ENCOUNTER 2023-02-19 08:32 | Outpatient (AMB) | payer OTHER, SELFPAY ==
--- NOTE | 2023-02-19 08:45 | MHC.OFFVISCO ---
Intake Intake Visit Reasons: Anticoagulation Allergies atorvastatin [Lipitor] Adverse Reaction (Intermediate, Verified 02/19/23 08:35) didn't tolerate rosuvastatin [Crestor] Adverse Reaction (Intermediate, Verified 02/19/23 08:35) didn't tolerate venlafaxine [From Effexor] Adverse Reaction (Intermediate, Verified 02/19/23 08:35) did not tolerate Medication List - Last Reconciled 02/19/23 by Mago Schmidt, RN coenzyme Q10 (CoQ-10) 100 mg PO DAILY evolocumab (Repatha SureClick) 140 mg subcut Q2W levothyroxine 50 mcg PO DAILY lisinopril 10 mg PO DAILY metoprolol tartrate 75 mg (1.5 x 50 mg) PO BID niacin PO [TUMERIC PO] warfarin See Protocol 5mg daily to be adjusted related to INR value. orally daily; Nursing Note INR: 2.1 in therapeutic range Medications and supplements reviewed No changes in health, diet, medications, or supplements, Denies any signs and symptoms of bleeding or bruising or clotting. Bleeding, bruising, clotting discussed Nutritional guidance given Dose:7.5MG X 2 DAYS/10MG X 5 DAYS F/U INR: 1 MONTH Patient verbalizes understanding of instructions given Anti-Coag Initial Assessment Social Hx Patient Tobacco Use Status: Former Tobacco user Quit Date: 2011 alcohol intake: former Alcohol intake frequency: former alcohol drinker Cardiovascular Hx: HTN, CAD, [place] and Arrhythmias Endocrine Hx: Thyroid Disease Musculoskeletal Hx: Arthritis (knees, neck and back) Blood Disorder Hx: Hyperlipidemia GI Hx: Diverticulosis (hx diverticulitis- bowel resection ) Neurological Hx: Migraines/Headaches Cancer HX: No Psych. 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
== END 2023-02-19 08:47 | disposition home or self-care (01) ==
LOC: HO.ACS 08:32
PROVIDERS: PCP Nurse Practitioner Family; Visit Provider Internal Medicine
DX: Z79.01 Long term (current) use of anticoagulants (principal)

== ENCOUNTER → 2023-02-19 08:32 | Outpatient (BNVA) | payer OTHER, SELFPAY | PROVIDERS: PCP Nurse Practitioner Family; Visit Provider Internal Medicine | DX: I48.0 Paroxysmal atrial fibrillation (principal); Z79.01 Long term (current) use of anticoagulants; Z51.81 Encounter for therapeutic drug level monitoring | CPT/HCPCS: 85610; 99211 ==

== ENCOUNTER 2023-03-18 08:05 | Outpatient (AMB) | payer OTHER, SELFPAY ==
[2023-03-18 08:11] LABS: Prothrombin Time Whole Bld POC 18.9 sec (11.1-13.5); ~PT, ~INR - Anti Coag Clinic 1.6 (0.9-1.1)
--- NOTE | 2023-03-18 08:17 | MHC.OFFVISCO ---
Intake Intake Visit Reasons: Anticoagulation Allergies atorvastatin [Lipitor] Adverse Reaction (Intermediate, Verified 03/18/23 08:05) didn't tolerate rosuvastatin [Crestor] Adverse Reaction (Intermediate, Verified 03/18/23 08:05) didn't tolerate venlafaxine [From Effexor] Adverse Reaction (Intermediate, Verified 03/18/23 08:05) did not tolerate Medication List - Last Reconciled 03/18/23 by Mago Schmidt, RN coenzyme Q10 (CoQ-10) 100 mg PO DAILY evolocumab (Repatha SureClick) 140 mg subcut Q2W levothyroxine 50 mcg PO DAILY lisinopril 10 mg PO DAILY metoprolol tartrate 75 mg (1.5 x 50 mg) PO BID niacin PO [TUMERIC PO] warfarin See Protocol 5mg daily to be adjusted related to INR value. orally daily; Nursing Note INR: 1.6 in therapeutic range Medications and supplements reviewed exercising more 2 days / week Denies any signs and symptoms of bleeding or bruising or clotting. Bleeding, bruising, clotting discussed Nutritional guidance given Dose: 12.5mg today then 10mg daily F/U INR: 1 week Patient verbalizes understanding of instructions given Anti-Coag Initial Assessment Social Hx Patient Tobacco Use Status: Former Tobacco user Quit Date: 2011 alcohol intake: former Alcohol intake frequency: former alcohol drinker Cardiovascular Hx: HTN, CAD, [place] and Arrhythmias Endocrine Hx: Thyroid Disease Musculoskeletal Hx: Arthritis (knees, neck and back) Blood Disorder Hx: Hyperlipidemia GI Hx: Diverticulosis (hx diverticulitis- bowel resection ) Neurological Hx: Migraines/Headaches Cancer HX: No Psych. 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
== END 2023-03-18 08:18 | disposition home or self-care (01) ==
LOC: HO.ACS 08:05
PROVIDERS: PCP Nurse Practitioner Family; Visit Provider Internal Medicine
DX: Z79.01 Long term (current) use of anticoagulants (principal)

== ENCOUNTER → 2023-03-18 08:05 | Outpatient (BNVA) | payer OTHER, SELFPAY | PROVIDERS: PCP Nurse Practitioner Family; Visit Provider Internal Medicine | DX: I48.91 Unspecified atrial fibrillation (principal); Z79.01 Long term (current) use of anticoagulants; Z51.81 Encounter for therapeutic drug level monitoring | CPT/HCPCS: 85610; 99211 ==

== ENCOUNTER 2023-03-25 08:06 | Outpatient (AMB) | payer OTHER, SELFPAY ==
[2023-03-25 08:13] LABS: Prothrombin Time Whole Bld POC 22.9 sec (11.1-13.5); ~PT, ~INR - Anti Coag Clinic 1.9 (0.9-1.1)
--- NOTE | 2023-03-25 08:16 | MHC.OFFVISCO ---
Intake Intake Visit Reasons: Anticoagulation Allergies atorvastatin [Lipitor] Adverse Reaction (Intermediate, Verified 03/25/23 08:06) didn't tolerate rosuvastatin [Crestor] Adverse Reaction (Intermediate, Verified 03/25/23 08:06) didn't tolerate venlafaxine [From Effexor] Adverse Reaction (Intermediate, Verified 03/25/23 08:06) did not tolerate Medication List - Last Reconciled 03/25/23 by Mago Schmidt RN coenzyme Q10 (CoQ-10) 100 mg PO DAILY evolocumab (Repatha SureClick) 140 mg subcut Q2W levothyroxine 50 mcg PO DAILY lisinopril 10 mg PO DAILY metoprolol tartrate 75 mg (1.5 x 50 mg) PO BID niacin PO [TUMERIC PO] warfarin See Protocol 5mg daily to be adjusted related to INR value. orally daily; Nursing Note INR 1.9? out of therapeutic range Medications and supplements reviewed Patient status: EXERCISING MORE Medications or supplements: NO CHANGE Diet: GOOD Denies any signs and symptoms of bleeding or clotting or unusual bruising Bleeding, bruising, clotting discussed Nutritional guidance given: AVOID GREENS X 2, EAT ORANGE AND REDS Dose: 12.5MG X 1 DAY/ 10MG X 6 DAYS F/U INR Date : 1 WEEK ?? Patient verbalizing understanding of instructions given. Anti-Coag Initial Assessment Social Hx Patient Tobacco Use Status: Former Tobacco user Quit Date: 2011 alcohol intake: former Alcohol intake frequency: former alcohol drinker Cardiovascular Hx: HTN, CAD, [place] and Arrhythmias Endocrine Hx: Thyroid Disease Musculoskeletal Hx: Arthritis (knees, neck and back) Blood Disorder Hx: Hyperlipidemia GI Hx: Diverticulosis (hx diverticulitis- bowel resection ) Neurological Hx: Migraines/Headaches Cancer HX: No Psych. 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
== END 2023-03-25 08:22 | disposition home or self-care (01) ==
LOC: HO.ACS 08:06
PROVIDERS: PCP Nurse Practitioner Family; Visit Provider Internal Medicine
DX: Z79.01 Long term (current) use of anticoagulants (principal)

== ENCOUNTER → 2023-03-25 08:06 | Outpatient (BNVA) | payer OTHER, SELFPAY | PROVIDERS: PCP Nurse Practitioner Family; Visit Provider Internal Medicine | DX: I48.0 Paroxysmal atrial fibrillation (principal); Z79.01 Long term (current) use of anticoagulants; Z51.81 Encounter for therapeutic drug level monitoring | CPT/HCPCS: 85610; 99211 ==

== ENCOUNTER 2023-04-02 08:34 | Outpatient (AMB) | payer OTHER, SELFPAY ==
[2023-04-02 08:47] LABS: Prothrombin Time Whole Bld POC 28.3 sec (11.1-13.5); ~PT, ~INR - Anti Coag Clinic 2.4 (0.9-1.1)
--- NOTE | 2023-04-02 08:51 | MHC.OFFVISCO ---
Intake Intake Visit Reasons: Anticoagulation Allergies atorvastatin [Lipitor] Adverse Reaction (Intermediate, Verified 04/02/23 08:41) didn't tolerate rosuvastatin [Crestor] Adverse Reaction (Intermediate, Verified 04/02/23 08:41) didn't tolerate venlafaxine [From Effexor] Adverse Reaction (Intermediate, Verified 04/02/23 08:41) did not tolerate Medication List - Last Reconciled 04/02/23 by Mago Schmidt, RN coenzyme Q10 (CoQ-10) 100 mg PO DAILY evolocumab (Repatha SureClick) 140 mg subcut Q2W levothyroxine 50 mcg PO DAILY lisinopril 10 mg PO DAILY metoprolol tartrate 75 mg (1.5 x 50 mg) PO BID niacin PO [TUMERIC PO] warfarin See Protocol 5mg daily to be adjusted related to INR value. orally daily; Nursing Note INR: 2.4 in therapeutic range Medications and supplements reviewed No changes in health, diet, medications, or supplements, Denies any signs and symptoms of bleeding or bruising or clotting. Bleeding, bruising, clotting discussed Nutritional guidance given Dose: 12.5MG X 1 DAY/ 10MG X 6 DAYS F/U INR: 2 WEEKS Patient verbalizes understanding of instructions given Anti-Coag Initial Assessment Social Hx Patient Tobacco Use Status: Former Tobacco user Quit Date: 2011 alcohol intake: former Alcohol intake frequency: former alcohol drinker Cardiovascular Hx: HTN, CAD, [place] and Arrhythmias Endocrine Hx: Thyroid Disease Musculoskeletal Hx: Arthritis (knees, neck and back) Blood Disorder Hx: Hyperlipidemia GI Hx: Diverticulosis (hx diverticulitis- bowel resection ) Neurological Hx: Migraines/Headaches Cancer HX: No Psych. 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
== END 2023-04-02 08:54 | disposition home or self-care (01) ==
LOC: HO.ACS 08:34
PROVIDERS: PCP Nurse Practitioner Family; Visit Provider Internal Medicine
DX: Z79.01 Long term (current) use of anticoagulants (principal)

== ENCOUNTER → 2023-04-02 08:34 | Outpatient (BNVA) | payer OTHER, SELFPAY | PROVIDERS: PCP Nurse Practitioner Family; Visit Provider Internal Medicine | DX: I48.0 Paroxysmal atrial fibrillation (principal); Z79.01 Long term (current) use of anticoagulants; Z51.81 Encounter for therapeutic drug level monitoring | CPT/HCPCS: 85610; 99211 ==

== ENCOUNTER 2023-04-16 08:21 | Outpatient (AMB) | payer OTHER, SELFPAY ==
[2023-04-16 08:27] LABS: Prothrombin Time Whole Bld POC 27.3 sec (11.1-13.5); ~PT, ~INR - Anti Coag Clinic 2.3 (0.9-1.1)
--- NOTE | 2023-04-16 08:30 | MHC.OFFVISCO ---
Intake Intake Visit Reasons: Anticoagulation Allergies atorvastatin [Lipitor] Adverse Reaction (Intermediate, Verified 04/16/23 08:22) didn't tolerate rosuvastatin [Crestor] Adverse Reaction (Intermediate, Verified 04/16/23 08:22) didn't tolerate venlafaxine [From Effexor] Adverse Reaction (Intermediate, Verified 04/16/23 08:22) did not tolerate Medication List - Last Reconciled 04/16/23 by Jayleen Dixon, RN coenzyme Q10 (CoQ-10) 100 mg PO DAILY evolocumab (Repatha SureClick) 140 mg subcut Q2W levothyroxine 50 mcg PO DAILY lisinopril 10 mg PO DAILY metoprolol tartrate 75 mg (1.5 x 50 mg) PO BID niacin PO [TUMERIC PO] warfarin See Protocol 5mg daily to be adjusted related to INR value. orally daily; Nursing Note NO CP,SOB,DIET/MED CHANGES,FALLS O5R SX OF BLEEDING. CONTINUE PRESENT DOSE AND FOLLOW-UP IN 4 WEEKS GOOD UNDERSTANDING OF DOSING INSTR. Anti-Coag Initial Assessment Social Hx Patient Tobacco Use Status: Former Tobacco user Quit Date: 2011 alcohol intake: former Alcohol intake frequency: former alcohol drinker Cardiovascular Hx: HTN, CAD, [place] and Arrhythmias Endocrine Hx: Thyroid Disease Musculoskeletal Hx: Arthritis (knees, neck and back) Blood Disorder Hx: Hyperlipidemia GI Hx: Diverticulosis (hx diverticulitis- bowel resection ) Neurological Hx: Migraines/Headaches Cancer HX: No Psych. 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
== END 2023-04-16 08:32 | disposition home or self-care (01) ==
LOC: HO.ACS 08:21
PROVIDERS: PCP Nurse Practitioner Family; Visit Provider Internal Medicine
DX: Z79.01 Long term (current) use of anticoagulants (principal)

== ENCOUNTER → 2023-04-16 08:21 | Outpatient (BNVA) | payer OTHER, SELFPAY | PROVIDERS: PCP Nurse Practitioner Family; Visit Provider Internal Medicine | DX: I48.0 Paroxysmal atrial fibrillation (principal); Z79.01 Long term (current) use of anticoagulants; Z51.81 Encounter for therapeutic drug level monitoring | CPT/HCPCS: 85610; 99211 ==

== ENCOUNTER 2023-05-14 07:57 | Outpatient (AMB) | payer OTHER, SELFPAY ==
[2023-05-14 08:11] LABS: Prothrombin Time Whole Bld POC 25.2 sec (11.1-13.5); ~PT, ~INR - Anti Coag Clinic 2.1 (0.9-1.1)
--- NOTE | 2023-05-14 08:12 | MHC.OFFVISCO ---
Intake Intake Visit Reasons: Anticoagulation Allergies atorvastatin [Lipitor] Adverse Reaction (Intermediate, Verified 05/14/23 08:05) didn't tolerate rosuvastatin [Crestor] Adverse Reaction (Intermediate, Verified 05/14/23 08:05) didn't tolerate venlafaxine [From Effexor] Adverse Reaction (Intermediate, Verified 05/14/23 08:05) did not tolerate Medication List - Last Reconciled 05/14/23 by Shraddha Goetz, RN coenzyme Q10 (CoQ-10) 100 mg PO DAILY evolocumab (Repatha SureClick) 140 mg subcut Q2W levothyroxine 50 mcg PO DAILY lisinopril 10 mg PO DAILY metoprolol tartrate 75 mg (1.5 x 50 mg) PO BID niacin PO [TUMERIC PO] warfarin See Protocol 5mg daily to be adjusted related to INR value. orally daily; Nursing Note Amb to ACS feeling well Medications and supplements reviewed No changes in health, diet, medications, or supplements Denies any unusual signs and symptoms of bruising, bleeding Denies any new Chest pain, SOB, or clotting INR:2.1 low in therapeutic range Nutritional guidance given: no green today then balance greens and reds in diet Dose: continue usual dosing;12.5mg x 1 day and 10mg x 6 days F/U INR: 4 weeks Patient verbalizes understanding of instructions given with accurate read back/ teach back of dosing Anti-Coag Initial Assessment Social Hx Patient Tobacco Use Status: Former Tobacco user Quit Date: 2011 alcohol intake: former Alcohol intake frequency: former alcohol drinker Cardiovascular Hx: HTN, CAD, [place] and Arrhythmias Endocrine Hx: Thyroid Disease Musculoskeletal Hx: Arthritis (knees, neck and back) Blood Disorder Hx: Hyperlipidemia GI Hx: Diverticulosis (hx diverticulitis- bowel resection ) Neurological Hx: Migraines/Headaches Cancer HX: No Psych. 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
== END 2023-05-14 09:15 | disposition home or self-care (01) ==
LOC: HO.ACS 07:57
PROVIDERS: PCP Nurse Practitioner Family; Visit Provider Internal Medicine
DX: Z79.01 Long term (current) use of anticoagulants (principal)

== ENCOUNTER → 2023-05-14 07:57 | Outpatient (BNVA) | payer OTHER, SELFPAY | PROVIDERS: PCP Nurse Practitioner Family; Visit Provider Internal Medicine | DX: I48.0 Paroxysmal atrial fibrillation (principal); Z51.81 Encounter for therapeutic drug level monitoring; Z79.01 Long term (current) use of anticoagulants | CPT/HCPCS: 85610; 99211 ==

== ENCOUNTER 2023-06-07 11:24 | Outpatient (AMB) | payer OTHER, SELFPAY ==
[2023-06-07 11:34] VITALS: BP 158/100; PULSE 56; O2SAT 97; BMI 35.4
--- NOTE | 2023-06-07 11:34 | MHC.PC.OV ---
Vital Signs 06/07/23 11:34 06/07/23 12:02 06/07/23 12:12 Height 6 ft Weight 261 lb 2 oz BMI 35.4 BP 158/100 H 140/98 H 142/94 H Blood Pressure Location Lt brachial Rt brachial Position Sitting Sitting Pulse 56 Pulse Source Pulse Oximeter Pulse Oximetry (%) 97 Oxygen Delivery Method Room Air Intake Visit Reasons: Annuap PE Rescheduled Allergies atorvastatin [Lipitor] Adverse Reaction (Intermediate, Verified 06/07/23 11:34) didn't tolerate rosuvastatin [Crestor] Adverse Reaction (Intermediate, Verified 06/07/23 11:34) didn't tolerate venlafaxine [From Effexor] Adverse Reaction (Intermediate, Verified 06/07/23 11:34) did not tolerate Medication List - Last Reconciled 06/07/23 by Jose Mulligan, HIGH RISK CASE MANAGER- coenzyme Q10 (CoQ-10) 100 mg PO DAILY evolocumab (Repatha SureClick) 140 mg subcut Q2W levothyroxine 50 mcg PO DAILY lisinopril 10 mg PO DAILY metoprolol tartrate 75 mg (1.5 x 50 mg) PO BID niacin PO [TUMERIC PO] warfarin See Protocol 5mg daily to be adjusted related to INR value. orally daily; Tobacco use date assessed: 09/14/22 Dental Screening Dental Screen Date: 06/07/23 Did you have a dental visit in the last 12 months?: Yes Did you have a dental problem in the last 6 months where you did not have access to dental care?: No Was dental information given to patient?: Patient has dentist HPI Annuap PE Rescheduled HPI Details Pt is here for a PE. Will order labs. PSA is up to date. Due for colon screen, pt was seeing GI previously but has not been back, will check on this. Pt is following up with cardiology. HTN: Blood pressure is elevated, managed with lisinopril 10mg and metoprolol 75mg bid. Will start amlodipine. Will have pt monitor his BP at home and drop off readings in the next few weeks. Lastly, pt reports having right arch pain after hearing a snap and having pain years ago. pt reports rest did help it, though it came back recently. Denies swelling or redness. Will have him stretch the region, and i will refer to podiatry. [facility] Medical History Acquired hypothyroidism Radha syndrome Sleep apnea Mixed hyperlipidemia Essential hypertension PAF (paroxysmal atrial fibrillation) Atherosclerotic cardiovascular disease Afib Surgical History History of colectomy History of esophagogastroduodenoscopy (EGD) Hx of colonoscopy Hx of CABG Family History Father Esophageal cancer Stomach cancer Mother Heart problem Brother No problems noted. 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 How often do you have a drink containing alcohol?: Never 3. How often do you have six or more drinks on one occasion?: Never Total Score: 0 Score Reviewed/Action Taken: Yes Review of Systems Const Denies chills and Denies fever(s) Eyes Denies blurry vision ENT Denies vertigo, Denies dizziness and Denies sore throat Card Denies chest pain at rest, Denies chest pain with activity, Denies diaphoresis, Denies dyspnea and Denies dyspnea on exertion Resp Denies cough, Denies dyspnea, Denies dyspnea on exertion and Denies wheezing GI Denies abdominal pain, Denies melena, Denies hematochezia, Denies constipation, Denies diarrhea and Denies loose stools Denies hematuria Musc Denies numbness and Denies tingling Skin/Breast Denies lesions Neuro Denies vertigo, Denies dizziness, Denies numbness and Denies tingling Psych Denies anxiety, Denies depression, Denies homicidal ideation, Denies suicidal ideation and Denies other (substance abuse) Aller/Immun Denies wheezing Physical exam (Primary Care) Vital Signs: Last Vital Signs Pulse 56 06/07/23 11:34 BP 158/100 H 06/07/23 11:34 Pulse Ox 97 06/07/23 11:34 Oxygen Delivery Method Room Air 06/07/23 11:34 BMI result Body Mass Index 35.4 Tobacco/Smoking Status: Tobacco use Status Tobacco use date assessed 09/14/22 06/07/23 11:39 Patient Tobacco Use Status Former Tobacco user 06/07/23 11:39 e-Cigarette/Vaping Use Never Used 06/07/23 11:39 Const General: cooperative Nutritional Appearance: obese Orientation/consciousness: patient oriented x3 HENMT Other: cerumen noted to left ear, after ear lavage TM easily seen Head: Yes normal to inspection, Yes normocephalic and Yes atraumatic Ears: TM normal on the right Eyes General: appearance normal, both eyes and all related structures Alignment and Position: alignment normal and position normal Neck Neck: Yes normal visual inspection and Yes no lymphadenopathy Thyroid: Thyroid normal Resp Effort & Inspection: normal respiratory effort Auscultation: clear to auscultation bilaterally Cardio Rate: regular rate Rhythm: abnormal rhythm irregularly irregular Heart sounds: S1 normal heart sound present, S2 normal heart sound present and no murmurs GI Palpation (GI): Soft to palpation and nontender Auscultation: normal bowel sounds Male General Exam: Yes normal external exam Penis: normal penis Scrotum: scrotum normal and no inguinal hernias Testes: no testicular mass Skin Rashes: no rashes Neuro General: patient oriented x3, moves all extremities, no focal motor deficits and deep tendon reflexes 2+ bilaterally Romberg Test: Negative Extrem Other: palpation of right arch, tenderness noted. no active swelling noted Psych Appearance: grossly normal Mental Status: mental status grossly normal Speech and movement: Normal speech and movement present Affect: normal affect Attitude: cooperative Thought process: Normal thought process present Thought content: Normal thought content present Insight: Good insight present (Psych) Judgement: Good judgement present (Psych) Office Procedures Cerumen Removal From which ear canal was the cerumen removed: left Removal: irrigation Notes: patient tolerated procedure well, no complications and ear canal clear 58087-Php Irrigation/Lavage Assessment and Plan Assessment & Plan (1) Right foot pain: Code(s): M79.671 - Pain in right foot Plan: stretching, referring to podiatry. (2) Essential hypertension: Code(s): I10 - Essential (primary) hypertension Plan: started amlodipine 2.5mg, will drop off values from home in the next couple of weeks (3) Encounter for routine adult physical exam with abnormal findings: Code(s): Z00.01 - Encounter for general adult medical examination with abnormal findings Plan The patient agreed to the use of a medical information specialist for this encounter. Scribed for GRETTA Reza by [facility] medical information specialist, on 06/07/2023 at 11:40 EST. Orders: Orders Comprehensive [place]. Panel Fast Today Z00.00 - Encounter for general adult medical examination without abnormal findings UA CC w/rflx Micro + Cult Today Z00.00 - Encounter for general adult medical examination without abnormal findings Complete Blood Count Auto Diff Today Z00.00 - Encounter for general adult medical examination without abnormal findings TSH reflex Free T4 Today Z00.00 - Encounter for general adult medical examination without abnormal findings Lipid Panel Today Z00.00 - Encounter for general adult medical examination without abnormal findings Referrals Podiatry Referral M79.671 - Pain in right foot Medications: New amlodipine 2.5 mg PO DAILY 90 tabs 0RF Coding Level of Care Code Est Pt Prev Care 40-64y(22384) Diagnoses Right foot pain M79.671 Essential hypertension I10 Encounter for routine adult physical exam with abnormal findings Z00.01 CPT Codes Office Procedure - CPT: 78030-Gin Irrigation/Lavage ([id number])
[2023-06-07 12:02] VITALS: BP 140/98
[2023-06-07 12:12] VITALS: BP 142/94
== END 2023-06-07 12:16 | disposition home or self-care (01) ==
PROVIDERS: PCP Nurse Practitioner Family; Visit Provider Nurse Practitioner Family
DX: Z00.00 Encounter for general adult medical examination without abnormal findings (principal); M79.671 Pain in right foot; I10 Essential (primary) hypertension; H61.22 Impacted cerumen, left ear
CPT/HCPCS: 69209; 99396

== ENCOUNTER 2023-06-11 08:04 | Outpatient (AMB) | payer OTHER, SELFPAY ==
[2023-06-11 08:16] LABS: Prothrombin Time Whole Bld POC 32.8 sec (11.1-13.5); ~PT, ~INR - Anti Coag Clinic 2.7 (0.9-1.1)
--- NOTE | 2023-06-11 08:22 | MHC.OFFVISCO ---
Intake Intake Visit Reasons: Anticoagulation Allergies atorvastatin [Lipitor] Adverse Reaction (Intermediate, Verified 06/11/23 08:09) didn't tolerate rosuvastatin [Crestor] Adverse Reaction (Intermediate, Verified 06/11/23 08:09) didn't tolerate venlafaxine [From Effexor] Adverse Reaction (Intermediate, Verified 06/11/23 08:09) did not tolerate Medication List - Last Reconciled 06/11/23 by Shraddha Martinez, RN amlodipine 2.5 mg PO DAILY coenzyme Q10 (CoQ-10) 100 mg PO DAILY evolocumab (Repatha SureClick) 140 mg subcut Q2W levothyroxine 50 mcg PO DAILY lisinopril 10 mg PO DAILY metoprolol tartrate 75 mg (1.5 x 50 mg) PO BID niacin PO [TUMERIC PO] warfarin See Protocol 5mg daily to be adjusted related to INR value. orally daily; Nursing Note TO ACS WITH ? OF MISSED DOSE THIS WEEK. NEW MED AMLODIPINE ADDED TO MED LIST (NO INTERACTION WITH WARFARIN) NO UNUSUAL BLEEDING OR BRUISING. NO CHEST PAIN OR SOB. INR: 2.7 WITHIN RANGE. PLAN IS TO HOLD GREENS TODAY DUE TO ? OF MISSED DOSE, THEN TO RESUME REGULAR DOSING. ENCOURAGED USE OF PILL BOX. PT VERBALIZES UNDERSTANDING Anti-Coag Initial Assessment Social Hx Patient Tobacco Use Status: Former Tobacco user Quit Date: 2011 alcohol intake: former Alcohol intake frequency: former alcohol drinker Cardiovascular Hx: HTN, CAD, [place] and Arrhythmias Endocrine Hx: Thyroid Disease Musculoskeletal Hx: Arthritis (knees, neck and back) Blood Disorder Hx: Hyperlipidemia GI Hx: Diverticulosis (hx diverticulitis- bowel resection ) Neurological Hx: Migraines/Headaches Cancer HX: No Psych. 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
== END 2023-06-11 08:59 | disposition home or self-care (01) ==
LOC: HO.ACS 08:04
PROVIDERS: PCP Nurse Practitioner Family; Visit Provider Internal Medicine
DX: Z79.01 Long term (current) use of anticoagulants (principal)

== ENCOUNTER → 2023-06-11 08:04 | Outpatient (BNVA) | payer OTHER, SELFPAY | PROVIDERS: PCP Nurse Practitioner Family; Visit Provider Internal Medicine | DX: I48.0 Paroxysmal atrial fibrillation (principal); Z79.01 Long term (current) use of anticoagulants; Z51.81 Encounter for therapeutic drug level monitoring | CPT/HCPCS: 85610; 99211 ==

== ENCOUNTER 2023-07-09 08:04 | Outpatient (AMB) | payer OTHER, SELFPAY ==
[2023-07-09 08:10] LABS: Prothrombin Time Whole Bld POC 27.3 sec (11.1-13.5); ~PT, ~INR - Anti Coag Clinic 2.3 (0.9-1.1)
--- NOTE | 2023-07-09 08:13 | MHC.OFFVISCO ---
Intake Intake Visit Reasons: Anticoagulation Allergies atorvastatin [Lipitor] Adverse Reaction (Intermediate, Verified 07/09/23 08:05) didn't tolerate rosuvastatin [Crestor] Adverse Reaction (Intermediate, Verified 07/09/23 08:05) didn't tolerate venlafaxine [From Effexor] Adverse Reaction (Intermediate, Verified 07/09/23 08:05) did not tolerate Medication List - Last Reconciled 07/09/23 by Shraddha Goetz RN amlodipine 2.5 mg PO DAILY coenzyme Q10 (CoQ-10) 100 mg PO DAILY evolocumab (Repatha SureClick) 140 mg subcut Q2W levothyroxine 50 mcg PO DAILY lisinopril 10 mg PO DAILY metoprolol tartrate 75 mg (1.5 x 50 mg) PO BID niacin PO [TUMERIC PO] warfarin See Protocol 5mg daily to be adjusted related to INR value. orally daily; Nursing Note Amb to ACS feeling well Medications and supplements reviewed No changes in health, diet, medications, or supplements Denies any unusual signs and symptoms of bruising, bleeding Denies any new Chest pain, SOB, or clotting INR: 2.3 in therapeutic range Nutritional guidance given: balance greens and reds in diet Dose: continue usual dosing;12.5mg x 1 day and 10mg x 6 days F/U INR: 1 month Patient verbalizes understanding of instructions given with accurate read back/ teach back of dosing Anti-Coag Initial Assessment Social Hx Patient Tobacco Use Status: Former Tobacco user Quit Date: 2011 alcohol intake: former Alcohol intake frequency: former alcohol drinker Cardiovascular Hx: HTN, CAD, [place] and Arrhythmias Endocrine Hx: Thyroid Disease Musculoskeletal Hx: Arthritis (knees, neck and back) Blood Disorder Hx: Hyperlipidemia GI Hx: Diverticulosis (hx diverticulitis- bowel resection ) Neurological Hx: Migraines/Headaches Cancer HX: No Psych. Illness/Depression: No Coding Level of Care Code Est Patient Level 1 Diagnoses Current use of anticoagulant therapy Z79.01 Time Spent (min) 15 Assessment & Plan Assessment & Plan (1) Current use of anticoagulant therapy: Code(s): Z79.01 - correction (current) use of anticoagulants Category: Medical
== END 2023-07-09 08:16 | disposition home or self-care (01) ==
LOC: HO.ACS 08:04
PROVIDERS: PCP Nurse Practitioner Family; Visit Provider Internal Medicine
DX: Z79.01 Long term (current) use of anticoagulants (principal)

== ENCOUNTER → 2023-07-09 08:04 | Outpatient (BNVA) | payer OTHER, SELFPAY | PROVIDERS: PCP Nurse Practitioner Family; Visit Provider Internal Medicine | DX: I48.0 Paroxysmal atrial fibrillation (principal); Z79.01 Long term (current) use of anticoagulants; Z51.81 Encounter for therapeutic drug level monitoring | CPT/HCPCS: 85610; 99211 ==

== ENCOUNTER 2023-08-05 11:06 | Outpatient (REF) | payer OTHER, SELFPAY ==
[2023-08-05 13:28] LABS: MANUAL DIFF FLAG NO
[2023-08-05 13:45] LABS: Basophils Percent Auto 0.2 % (0-2); Eosinophils Absolute Auto 0.1 X10*3/uL (0.0-0.4); Eosinophils Percent Auto 0.4 % (0-4); Hematocrit 44.3 % (42.0-52.0); Hemoglobin 15.5 g/dl (14.0-18.0); Imm Gran Abs Auto 0.05 X10*3/uL (0.00-0.03); Imm Gran Pct Auto 0.4 % (0.0-0.4); Lymphocytes Absolute Auto 2.7 X10*3/uL (1.2-4.9); Lymphocytes Percent Auto 21.4 % (20-40); Mean Corpuscular Hemoglobin 30.6 pg (27.0-33.0); Mean Corpuscular Volume 87.5 fL (80.0-98.0); Mean Platelet Volume 11.4 fL (9.4-12.4); Monocytes Absolute Auto 0.8 X10*3/uL (0.1-1.2); Monocytes Percent Auto 6.5 % (2-11); Neutrophils Absolute Auto 8.8 x10*3/uL (2.0-8.3); Neutrophils Percent Auto 71.1 % (45-73); Platelet Count 257 X10*3/uL (160-400); Red Blood Count 5.06 X10*6/uL (4.60-5.80); Red Cell Distribution Width 12.8 % (11.0-16.0); White Blood Count 12.4 X10*3/uL (4.8-10.8)
[2023-08-05 13:48] LABS: Appearance Urine Clear; Color Urine Yellow; Glucose Urine UA Negative (Negative); Leukocyte Esterase Urine Negative (Negative); Nitrite Urine Negative (Negative); PH 5.5 (5.0-9.0); Specific Gravity - Urine 1.025 (1.005-1.025); Urine Blood Negative (Negative); Urine Ketones Negative (Negative); Urine Protein Negative (Neg-Trace)
[2023-08-05 13:57] LABS: Alanine Aminotransferase 38 U/L (0-40); Albumin Level 4.3 g/dL (3.5-5.0); Alkaline Phosphatase 45 U/L (39-117); Anion Gap 12 (12-20); Aspartate Amino Transferase 26 U/L (5-37); Bilirubin Total 0.5 mg/dL (0.0-1.0); Blood Urea Nitrogen 23 mg/dL (9-16); Calcium 9.6 mg/dL (8.4-10.2); Carbon Dioxide 25 mmol/L (22-29); Chloride 105 mmol/L (96-108); Cholesterol 159 mg/dL (<200); Estimated Glomerular Filt Rate > 60; Glucose Fasting 105 mg/dL (60-99); HDL Cholesterol 47 mg/dL (>40); LDL Cholesterol Calculated 88 mg/dL (<100); Potassium 3.9 mmol/L (3.3-5.1); Sodium 138 mmol/L (135-145); Total Protein 7.3 g/dL (6.5-8.0); Triglycerides 123 mg/dL (<150)
[2023-08-05 14:15] LABS: TSH reflex Free T4 1.52 uIU/mL (0.32-4.0)
== END 2023-08-05 11:07 | disposition home or self-care (01) ==
LOC: HO.HMGCLDS 11:06
PROVIDERS: PCP Nurse Practitioner Family; Visit Provider Nurse Practitioner Family
DX: Z00.00 Encounter for general adult medical examination without abnormal findings (principal)
CPT/HCPCS: 36415; 80053; 80061; 81003; 84443; 85025

== ENCOUNTER 2023-08-10 15:40 | Outpatient (AMB) | payer OTHER, SELFPAY ==
[2023-08-10 15:47] VITALS: BP 120/76; PULSE 68; O2SAT 96; BMI 35.1
--- NOTE | 2023-08-10 15:47 | MHC.PC.OV ---
Vital Signs 08/10/23 15:47 Height 6 ft Weight 259 lb BMI 35.1 BP 120/76 Blood Pressure Location Lt brachial Position Sitting Pulse 68 Pulse Source Pulse Oximeter Pulse Oximetry (%) 96 Oxygen Delivery Method Room Air Intake Visit Reasons: BP f/u new med given 06/07/23 Intake Note: pt is here for blood pressure follow up, new med given to him on 06.07.23 Strip Stamp Straightener Required: No Accompanied by: Self / Same As Patient Allergies atorvastatin [Lipitor] Adverse Reaction (Intermediate, Verified 08/10/23 17:38) didn't tolerate rosuvastatin [Crestor] Adverse Reaction (Intermediate, Verified 08/10/23 17:38) didn't tolerate venlafaxine [From Effexor] Adverse Reaction (Intermediate, Verified 08/10/23 17:38) did not tolerate Medication List - Last Reconciled 08/10/23 by MONET Gómez- amlodipine 2.5 mg PO DAILY coenzyme Q10 (CoQ-10) 100 mg PO DAILY evolocumab (Repatha SureClick) 140 mg subcut Q2W levothyroxine 50 mcg PO DAILY lisinopril 10 mg PO DAILY metoprolol tartrate 75 mg (1.5 x 50 mg) PO BID niacin PO [TUMERIC PO] warfarin See Protocol 5mg daily to be adjusted related to INR value. orally daily; Tobacco use date assessed: 08/10/23 Dental Screening Dental Screen Date: 08/10/23 Did you have a dental visit in the last 12 months?: Yes Did you have a dental problem in the last 6 months where you did not have access to dental care?: No Was dental information given to patient?: Patient has dentist HPI BP f/u new med given 06/07/23 HPI Details Patient is here for follow-up for high blood pressure. He is currently on lisinopril 10 mg, metoprolol 75 twice a day, and I added amlodipine in May of this year. His BP seems much more stable now. He reports getting similar BPs at home. He denies any CP, SOB, dizziness, YU, or blurred vision. WBCs noted to be elevated recently, pt was given cortisone recently. He denies any s/s of infection. [facility] Medical History (Updated 08/08/23 @ 10:16 by MONET GómezRAND) Plantar fasciitis Acquired hypothyroidism Radha syndrome Sleep apnea Mixed hyperlipidemia Essential hypertension PAF (paroxysmal atrial fibrillation) Atherosclerotic cardiovascular disease Afib Surgical History History of colectomy History of esophagogastroduodenoscopy (EGD) Hx of colonoscopy Hx of CABG Family History Father Esophageal cancer Stomach cancer Mother Heart problem Brother No problems noted. 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 1. Little interest or pleasure in doing things: not at all 2. Feeling down, depressed, or hopeless: not at all 3. Trouble falling or staying asleep, or sleeping too much: not at all 4. Feeling tired or having little energy: not at all 5. Poor appetite or overeating: not at all 6. Feeling bad about yourself - or that you are a failure or have let yourself or your family down: not at all 7. Trouble concentrating on things, such as reading the newspaper or watching television: not at all 8. Moving or speaking so slowly that other people could have noticed. Or the opposite - being so fidgety or restless that you have been moving around a lot more than usual: not at all 9. Thoughts that you would be better off or of hurting yourself in some way: not at all Total score: 0 Depression Screening Interpretation: Negative Depression Screening Done: Yes 40302 - PHQ-9 Billing: Yes Source: Developed by Drs. Mohamud Queen, Alvina LongoriaIsmael and colleagues, with an educational sameera from [employer]. Thrive Questionnaire Date Thrive assessed: 08/10/23 I am a: Patient What is your living situation today?: I have a steady place to live Within the past 12 months, did the food you bought not last and you didn't have the money to get more?: Never true Within the past 12 months, did you worry whether your food would run out before you got money to buy more?: Never true Do you have trouble paying for medicines?: No Do you have trouble getting transportation to medical appointments?: No Do you have trouble paying your heating and electricity bill?: No Do you have trouble taking care of your child, family member or friend?: No Do you have trouble with day-to-day activities such as bathing, preparing meals, shopping, managing finances, etc.?: No Are you currently unemployed and looking for a job?: No Are you interested in more education?: No Please select the resources that you would like help with: None Currently or been in a relationship where the following occur: no concerns reported THRIVE Score: 0 PK-7 AMB Questionnaire PK-7 Date PK - 7 assessed: 08/10/23 Feeling nervous, anxious, or on edge: 0 = Not at all Not being able to stop or control worryin = Not at all Worrying too much about different things: 0 = Not at all Trouble relaxin = Not at all Being so restless that it is hard to sit still: 0 = Not at all Becoming easily annoyed or irritable: 0 = Not at all Feeling afraid as if something awful might happen: 0 = Not at all Total PK-7 score (0-4 normal; 5-9 mild; 10-14 moderate; 15-21 severe): 0 Source: Developed by Drs. Mohamud Queen, Alvina Longoria, Ismael Damon and colleagues, with an educational sameera from [employer]. PK-7 Assessment Billing KP-7 Assessment Tool: PK-7 Assessment 95449 Physical exam (Primary Care) Vital Signs: Last Vital Signs Pulse 68 08/10/23 15:47 BP 120/76 08/10/23 15:47 Pulse Ox 96 08/10/23 15:47 Oxygen Delivery Method Room Air 08/10/23 15:47 BMI result Body Mass Index 35.1 Tobacco/Smoking Status: Tobacco use Status Tobacco use date assessed 08/10/23 08/10/23 15:49 Patient Tobacco Use Status Former Tobacco user 08/10/23 15:49 e-Cigarette/Vaping Use Never Used 08/10/23 15:49 PHQ-9: PHQ-9 Score PHQ-9: Total score 0 08/10/23 16:11 Depression Screening Interpretation: Negative Thrive Assessment: Date of Thrive Assessment Date Thrive assessed 08/10/23 08/10/23 15:49 Currently or been in a relationship where the following occur: no concerns reported Const General: cooperative, healthy appearing, comfortable, no acute distress and well developed Resp Effort & Inspection: normal respiratory effort Auscultation: clear to auscultation bilaterally Cardio Rate: regular rate Rhythm: regular rhythm Heart sounds: S1 normal heart sound present and S2 normal heart sound present Extrem Right lower extremity: no edema Left lower extremity: no edema Psych Appearance: grossly normal Mental Status: mental status grossly normal Speech and movement: Normal speech and movement present Affect: normal affect Attitude: cooperative Thought process: Normal thought process present Thought content: Normal thought content present Insight: Good insight present (Psych) Judgement: Good judgement present (Psych) Assessment and Plan Assessment & Plan (1) Screening PSA (prostate specific antigen): Code(s): Z12.5 - Encounter for screening for malignant neoplasm of prostate (2) Essential hypertension: Code(s): I10 - Essential (primary) hypertension Plan: cont current med regime Orders: Orders Prostate Specific Antigen Scr Today Z12.5 - Encounter for screening for malignant neoplasm of prostate Coding Level of Care Code Est Pt Level 3 (80854) Diagnoses Screening PSA (prostate specific antigen) Z12.5 Essential hypertension I10 Additional Codes PK-7 Assessment Billing - PK-7 Assessment Tool: PK-7 Assessment 44957 ([id number])
== END 2023-08-10 16:30 | disposition home or self-care (01) ==
PROVIDERS: PCP Nurse Practitioner Family; Visit Provider Nurse Practitioner Family
DX: I10 Essential (primary) hypertension (principal); Z12.5 Encounter for screening for malignant neoplasm of prostate
CPT/HCPCS: 99213

== ENCOUNTER 2023-08-13 08:04 | Outpatient (AMB) | payer OTHER, SELFPAY ==
[2023-08-13 08:27] LABS: Prothrombin Time Whole Bld POC 22.2 sec (11.1-13.5); ~PT, ~INR - Anti Coag Clinic 1.9 (0.9-1.1)
--- NOTE | 2023-08-13 08:32 | MHC.OFFVISCO ---
Intake Intake Visit Reasons: Anticoagulation Allergies atorvastatin [Lipitor] Adverse Reaction (Intermediate, Verified 08/13/23 08:19) didn't tolerate rosuvastatin [Crestor] Adverse Reaction (Intermediate, Verified 08/13/23 08:19) didn't tolerate venlafaxine [From Effexor] Adverse Reaction (Intermediate, Verified 08/13/23 08:19) did not tolerate Medication List - Last Reconciled 08/13/23 by Mago Schmidt RN amlodipine 2.5 mg PO DAILY coenzyme Q10 (CoQ-10) 100 mg PO DAILY evolocumab (Repatha SureClick) 140 mg subcut Q2W levothyroxine 50 mcg PO DAILY lisinopril 10 mg PO DAILY metoprolol tartrate 75 mg (1.5 x 50 mg) PO BID niacin PO [TUMERIC PO] warfarin See Protocol 5mg daily to be adjusted related to INR value. orally daily; Nursing Note INR 1.9 out of therapeutic range Medications and supplements reviewed Patient status: HAS BEEN EATING MORE FERMENETED FOODS LIKE SAURKRAUT WHICH CAN LOWER THE INR Medications or supplements: AMLODIPINE ADDED Diet: GOOD Denies any signs and symptoms of bleeding or clotting or unusual bruising Bleeding, bruising, clotting discussed Nutritional guidance given: AVOID GREENS TODAY, EAT MORE ORANGE AND REDS WHEN HAVING MORE SUARKRAUT Dose: BOOST DOSE TODAY 12.5MG TODAY(X 2 DAYS THIS WEEK) THEN RESUME 12.5MG X 1 DAY/ 10MG X 6 DAYS F/U INR Date : 4 WEEKS PER PT REQUEST - HAS ILL DOG WITH HIP REPLACEMENT?? Patient verbalizing understanding of instructions given. Anti-Coag Initial Assessment Social Hx Patient Tobacco Use Status: Former Tobacco user Quit Date: 2011 alcohol intake: former Alcohol intake frequency: former alcohol drinker Cardiovascular Hx: HTN, CAD, [place] and Arrhythmias Endocrine Hx: Thyroid Disease Musculoskeletal Hx: Arthritis (knees, neck and back) Blood Disorder Hx: Hyperlipidemia GI Hx: Diverticulosis (hx diverticulitis- bowel resection ) Neurological Hx: Migraines/Headaches Cancer HX: No Psych. Illness/Depression: No Coding Level of Care Code Est Patient Level 1 Diagnoses Current use of anticoagulant therapy Z79.01 Assessment & Plan Assessment & Plan (1) Current use of anticoagulant therapy: Code(s): Z79.01 - buttermaker continuous churn (current) use of anticoagulants Category: Medical
== END 2023-08-13 08:36 | disposition home or self-care (01) ==
LOC: HO.ACS 08:04
PROVIDERS: PCP Nurse Practitioner Family; Visit Provider Internal Medicine
DX: Z79.01 Long term (current) use of anticoagulants (principal)

== ENCOUNTER → 2023-08-13 08:04 | Outpatient (BNVA) | payer OTHER, SELFPAY | PROVIDERS: PCP Nurse Practitioner Family; Visit Provider Internal Medicine | DX: I48.0 Paroxysmal atrial fibrillation (principal); Z79.01 Long term (current) use of anticoagulants; Z51.81 Encounter for therapeutic drug level monitoring | CPT/HCPCS: 85610; 99211 ==

== ENCOUNTER 2023-09-10 08:00 | Outpatient (AMB) | payer OTHER, SELFPAY ==
[2023-09-10 08:09] LABS: Prothrombin Time Whole Bld POC 31.3 sec (11.1-13.5); ~PT, ~INR - Anti Coag Clinic 2.6 (0.9-1.1)
--- NOTE | 2023-09-10 08:10 | MHC.OFFVISCO ---
Intake Intake Visit Reasons: Anticoagulation Allergies atorvastatin [Lipitor] Adverse Reaction (Intermediate, Verified 09/10/23 08:04) didn't tolerate rosuvastatin [Crestor] Adverse Reaction (Intermediate, Verified 09/10/23 08:04) didn't tolerate venlafaxine [From Effexor] Adverse Reaction (Intermediate, Verified 09/10/23 08:04) did not tolerate Medication List - Last Reconciled 09/10/23 by Jonelle Palma RN amlodipine 2.5 mg PO DAILY coenzyme Q10 (CoQ-10) 100 mg PO DAILY evolocumab (Repatha SureClick) 140 mg subcut Q2W levothyroxine 50 mcg PO DAILY lisinopril 10 mg PO DAILY metoprolol tartrate 75 mg (1.5 x 50 mg) PO BID niacin PO [TUMERIC PO] warfarin See Protocol 5mg daily to be adjusted related to INR value. orally daily; Nursing Note INR: 2.6- in therapeutic range of 2-3 Medications and supplements reviewed- no changes No changes in health, diet, medications, or supplements, Denies any signs and symptoms of bleeding or bruising or clotting. Bleeding, bruising, clotting discussed Nutritional guidance given Dose: 12.5mg x 1 10mg x 6 F/U INR: 4 weeks Patient verbalizes understanding of instructions given Anti-Coag Initial Assessment Social Hx Patient Tobacco Use Status: Former Tobacco user Quit Date: 2011 alcohol intake: former Alcohol intake frequency: former alcohol drinker Cardiovascular Hx: HTN, CAD, [place] and Arrhythmias Endocrine Hx: Thyroid Disease Musculoskeletal Hx: Arthritis (knees, neck and back) Blood Disorder Hx: Hyperlipidemia GI Hx: Diverticulosis (hx diverticulitis- bowel resection ) Neurological Hx: Migraines/Headaches Cancer HX: No Psych. Illness/Depression: No Coding Level of Care Code Est Patient Level 1 Diagnoses Current use of anticoagulant therapy Z79.01 Assessment & Plan Assessment & Plan (1) Current use of anticoagulant therapy: Code(s): Z79.01 - long term care administrator (current) use of anticoagulants Category: Medical
== END 2023-09-10 08:29 | disposition home or self-care (01) ==
LOC: HO.ACS 08:00
PROVIDERS: PCP Nurse Practitioner Family; Visit Provider Internal Medicine
DX: Z79.01 Long term (current) use of anticoagulants (principal)

== ENCOUNTER → 2023-09-10 08:00 | Outpatient (BNVA) | payer OTHER, SELFPAY | PROVIDERS: PCP Nurse Practitioner Family; Visit Provider Internal Medicine | DX: I48.0 Paroxysmal atrial fibrillation (principal); Z51.81 Encounter for therapeutic drug level monitoring; Z79.01 Long term (current) use of anticoagulants | CPT/HCPCS: 85610; 99211 ==

== ENCOUNTER 2023-10-08 08:18 | Outpatient (AMB) | payer OTHER, SELFPAY ==
--- NOTE | 2023-10-08 08:24 | MHC.OFFVISCO ---
Intake Intake Visit Reasons: Anticoagulation Allergies atorvastatin [Lipitor] Adverse Reaction (Intermediate, Verified 10/08/23 08:20) didn't tolerate rosuvastatin [Crestor] Adverse Reaction (Intermediate, Verified 10/08/23 08:20) didn't tolerate venlafaxine [From Effexor] Adverse Reaction (Intermediate, Verified 10/08/23 08:20) did not tolerate Medication List - Last Reconciled 10/08/23 by oJnelle Palma RN amlodipine 2.5 mg PO DAILY coenzyme Q10 (CoQ-10) 100 mg PO DAILY evolocumab (Repatha SureClick) 140 mg subcut Q2W levothyroxine 50 mcg PO DAILY lisinopril 10 mg PO DAILY metoprolol tartrate 75 mg (1.5 x 50 mg) PO BID niacin PO [TUMERIC PO] warfarin See Protocol 5mg daily to be adjusted related to INR value. orally daily; Nursing Note INR: 2.2- in therapeutic range 2-3 Medications and supplements reviewed- no changes No changes in health, diet, medications, or supplements, Denies any signs and symptoms of bleeding or bruising or clotting. Bleeding, bruising, clotting discussed Nutritional guidance given Dose: 12.5mg x 1 , 10mg x 6 F/U INR: 4 weeks Patient verbalizes understanding of instructions given Anti-Coag Initial Assessment Social Hx Patient Tobacco Use Status: Former Tobacco user Quit Date: 2011 alcohol intake: former Alcohol intake frequency: former alcohol drinker Cardiovascular Hx: HTN, CAD, [place] and Arrhythmias Endocrine Hx: Thyroid Disease Musculoskeletal Hx: Arthritis (knees, neck and back) Blood Disorder Hx: Hyperlipidemia GI Hx: Diverticulosis (hx diverticulitis- bowel resection ) Neurological Hx: Migraines/Headaches Cancer HX: No Psych. Illness/Depression: No Coding Level of Care Code Est Patient Level 1 Diagnoses Current use of anticoagulant therapy Z79.01 Assessment & Plan Assessment & Plan (1) Current use of anticoagulant therapy: Code(s): Z79.01 - director energy (current) use of anticoagulants Category: Medical
[2023-10-08 08:25] LABS: Prothrombin Time Whole Bld POC 26.7 sec (11.1-13.5); ~PT, ~INR - Anti Coag Clinic 2.2 (0.9-1.1)
== END 2023-10-08 08:28 | disposition home or self-care (01) ==
LOC: HO.ACS 08:18
PROVIDERS: PCP Nurse Practitioner Family; Visit Provider Internal Medicine
DX: Z79.01 Long term (current) use of anticoagulants (principal)

== ENCOUNTER → 2023-10-08 08:18 | Outpatient (BNVA) | payer OTHER, SELFPAY | PROVIDERS: PCP Nurse Practitioner Family; Visit Provider Internal Medicine | DX: I48.0 Paroxysmal atrial fibrillation (principal); Z79.01 Long term (current) use of anticoagulants; Z51.81 Encounter for therapeutic drug level monitoring | CPT/HCPCS: 85610; 99211 ==

== ENCOUNTER 2023-10-13 09:22 | Outpatient (AMB) | payer OTHER, SELFPAY ==
--- NOTE | 2023-10-13 09:24 | A.OFFVIS_ITS ---
Vital Signs 10/13/23 09:26 Height 6 ft Weight 249 lb 1.957 oz BMI 33.8 BP 124/92 H Blood Pressure Location Lt brachial Position Sitting Pulse 65 Intake Visit Reasons: Colonoscopy screening Intake Note: Deacon presents in the office as a colonoscopy. CC: No concerns just due for a colo. Wants to discuss doing split prep and is willing to pay out of pocket. Allergies atorvastatin [Lipitor] Adverse Reaction (Intermediate, Verified 10/13/23 09:26) didn't tolerate rosuvastatin [Crestor] Adverse Reaction (Intermediate, Verified 10/13/23 09:26) didn't tolerate venlafaxine [From Effexor] Adverse Reaction (Intermediate, Verified 10/13/23 09:26) did not tolerate HPI HPI Colonoscopy screening: Details: 55 year old male here today for pre colonoscopy screening. I have seen patient in 2020 for colonoscopy. Patient was scheduled for colonoscopy, however had emergency and procedure was never rescheduled. Patient had colonoscopy done before does not remember where or what the results were. History of sigmoid colitis, status post laparoscopic colectomy in November of 2016 with sigmoid resection. Patient reports that he has been doing well since then. Denies having any GI issues. Patient denies any cardiac issues at the moment. History of CABG, S-P coronary artery bypass graft in 2011. 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 Recent visit in December of 2022. Patient had normal stress test in October of 2022. No further testing was ordered. Patient reports to be feeling well from cardiac point. Denies any SOB with or without exertion, PND, CP, palpitation, edema. Patient reports that since he stopped drinking he is not having any more issues with sleep apnea. Denies any personal or family history of gastroint estinal disease, colon polyps, or cancer. Denies history of difficulty with sedation or anesthesia in the past. Denies any history of cardiac, renal, pulmonary, or hepatic disease. No history of infectious diseases like hepatitis A, B, C, HIV or tuberculosis. Patientis on warfarin we will ask Cardiology for recommendation on when to stop. PFSH Medical History Plantar fasciitis Acquired hypothyroidism Radha syndrome Sleep apnea Mixed hyperlipidemia Essential hypertension PAF (paroxysmal atrial fibrillation) Atherosclerotic cardiovascular disease Afib Surgical History History of colectomy History of esophagogastroduodenoscopy (EGD) Hx of colonoscopy Hx of CABG Family History Father Esophageal cancer Stomach cancer Mother Heart problem Brother No problems noted. 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 Current occupational exposures/hazards: Yes Cognitive needs: No Hearing needs: No Vision needs: No Review of Systems Const Denies weight gain and Denies weight loss ENT Reports no additional complaints, Denies dysphagia and Denies odynophagia Card Reports no additional complaints Resp Reports no additional complaints GI Denies abdominal pain, Denies belching, Denies melena, Denies bloating, Denies change in bowel habits, Denies dysphagia, Denies excessive flatus, Denies dy spepsia, Denies heartburn, Denies diarrhea, Denies loose stools, Denies nausea, Denies odynophagia and Denies vomiting Reports no additional complaints Musc Reports no additional complaints Neuro Reports no additional complaints Psych Reports no additional complaints Endo Reports no additional complaints Physical Exam Vital Signs: Last Vital Signs Pulse 65 10/13/23 09:26 BP 124/92 H 10/13/23 09:26 BMI result Body Mass Index 33.8 Const General: healthy appearing, no acute distress and well developed Nutritional Appearance: well nourished Orientation/consciousness: patient oriented x3 Resp Auscultation: clear to auscultation bilaterally Cardio Rate: regular rate Rhythm: regular rhythm GI Inspection: Yes normal to inspection and No distended Palpation (GI): No hepatosplenomegaly present Auscultation: normal bowel sounds Skin General skin exam: elasticity normal, turgor normal and dry skin Neuro General: patient oriented x3 Assessment & Plan Assessment & Plan (1) Screening for colon cancer: Code(s): Z12.11 - Encounter for screening for malignant neoplasm of colon Category: Medical Plan What to expect before during and after the procedure discussed with patient. The importance of good bowel prep and clear liquid diet day before procedure discussed with patient. Message sent to [employer] FLA[employer]ORER Kellen Zamora for directions on went to stop warfarin before procedure. Patient denies any cardiac or respiratory symptoms. Had stress test last year that was normal. I will see patient after the procedure, sooner on as needed basis. He is agreeable to this plan and verbalizes understanding of instructions. He was given the opportunity to ask questions and all questions answered. Thank you for allowing me to participate in his care Medications: New bisacodyl (Dulcolax (bisacodyl)) take 4 tabs at noon the day before your colonoscopy 20 mg (4 x 5 mg) PO ONCE 1 day 4 tabs 0RF Z12.11 - Encounter for screening for malignant neoplasm of colon polyethylene glycol 3350 (Miralax) As directed by gastroenterology department at [facility] 238 grams PO ONCE 238 grams 0RF Z12.11 - Encounter for screening for malignant neoplasm of colon Coding Level of Care Code New Pt Level 3 (81758) Diagnoses Screening for colon cancer Z12.11 Time Spent (min) 40 Comment 30 minutes spent with patient and additional 10 minutes spent reviewing his records
[2023-10-13 09:26] VITALS: BP 124/92; PULSE 65; BMI 33.8
== END 2023-10-13 10:17 | disposition home or self-care (01) ==
PROVIDERS: PCP Nurse Practitioner Family; Visit Provider Nurse Practitioner Family
DX: Z12.11 Encounter for screening for malignant neoplasm of colon (principal); Z01.818 Encounter for other preprocedural examination
CPT/HCPCS: 99203

== ENCOUNTER → 2023-10-13 09:22 | Outpatient (BNVA) | payer OTHER, SELFPAY | PROVIDERS: PCP Nurse Practitioner Family; Visit Provider Nurse Practitioner Family | DX: Z12.11 Encounter for screening for malignant neoplasm of colon (principal) | CPT/HCPCS: 99202 ==

== ENCOUNTER 2023-11-04 08:17 | Outpatient (AMB) | payer OTHER, SELFPAY ==
[2023-11-04 08:23] LABS: Prothrombin Time Whole Bld POC 31.7 sec (11.1-13.5); ~PT, ~INR - Anti Coag Clinic 2.6 (0.9-1.1)
--- NOTE | 2023-11-04 08:28 | MHC.OFFVISCO ---
Intake Intake Visit Reasons: Anticoagulation Allergies atorvastatin [Lipitor] Adverse Reaction (Intermediate, Verified 11/04/23 08:18) didn't tolerate rosuvastatin [Crestor] Adverse Reaction (Intermediate, Verified 11/04/23 08:18) didn't tolerate venlafaxine [From Effexor] Adverse Reaction (Intermediate, Verified 11/04/23 08:18) did not tolerate Medication List - Last Reconciled 11/04/23 by Jayleen Dixon RN amlodipine 2.5 mg PO DAILY bisacodyl (Dulcolax (bisacodyl)) 20 mg (4 x 5 mg) PO ONCE 1 day coenzyme Q10 (CoQ-10) 100 mg PO DAILY evolocumab (Repatha SureClick) 140 mg subcut Q2W levothyroxine 50 mcg PO DAILY lisinopril 10 mg PO DAILY metoprolol tartrate 75 mg (1.5 x 50 mg) PO BID niacin PO polyethylene glycol 3350 (Miralax) 238 grams PO ONCE [TUMERIC PO] warfarin See Protocol 5mg daily to be adjusted related to INR value. orally daily; Nursing Note NO CP,SOB,DIET/MED CHANGES,FALLS OR SX OF BLEEDING. CONTINUE PRESENT DOSE AND FOLLOW-UP IN 4 WEEKS. GOOD UNDERSTANDING OF DOSING INSTR. Anti-Coag Initial Assessment Social Hx Patient Tobacco Use Status: Former Tobacco user alcohol intake: former Alcohol intake frequency: former alcohol drinker Cardiovascular Hx: HTN, CAD, [place] and Arrhythmias Endocrine Hx: Thyroid Disease Musculoskeletal Hx: Arthritis (knees, neck and back) Blood Disorder Hx: Hyperlipidemia GI Hx: Diverticulosis (hx diverticulitis- bowel resection ) Neurological Hx: Migraines/Headaches Cancer HX: No Psych. Illness/Depression: No Coding Level of Care Code Est Patient Level 1 Diagnoses Current use of anticoagulant therapy Z79.01 Assessment & Plan Assessment & Plan (1) Current use of anticoagulant therapy: Code(s): Z79.01 - terminal clerk (current) use of anticoagulants Category: Medical
== END 2023-11-04 08:29 | disposition home or self-care (01) ==
LOC: HO.ACS 08:17
PROVIDERS: PCP Nurse Practitioner Family; Visit Provider Internal Medicine
DX: Z79.01 Long term (current) use of anticoagulants (principal)

== ENCOUNTER → 2023-11-04 08:17 | Outpatient (BNVA) | payer OTHER, SELFPAY | PROVIDERS: PCP Nurse Practitioner Family; Visit Provider Internal Medicine | DX: I48.0 Paroxysmal atrial fibrillation (principal); Z79.01 Long term (current) use of anticoagulants; Z51.81 Encounter for therapeutic drug level monitoring | CPT/HCPCS: 85610; 99211 ==

== ENCOUNTER 2023-11-05 11:52 | Outpatient (REF) | payer OTHER, SELFPAY ==
[2023-11-05 13:14] LABS: MANUAL DIFF FLAG NO
[2023-11-05 13:25] LABS: Basophils Absolute Auto 0.1 X10*3/uL (0.0-0.2); Basophils Percent Auto 0.7 % (0-2); Eosinophils Absolute Auto 0.1 X10*3/uL (0.0-0.4); Eosinophils Percent Auto 2.1 % (0-4); Hematocrit 44.6 % (42.0-52.0); Hemoglobin 15.8 g/dl (14.0-18.0); Imm Gran Abs Auto 0.03 X10*3/uL (0.00-0.03); Imm Gran Pct Auto 0.4 % (0.0-0.4); Lymphocytes Absolute Auto 2.1 X10*3/uL (1.2-4.9); Lymphocytes Percent Auto 30.9 % (20-40); Mean Corpuscular HGB Conc 35.4 g/dl (31.0-36.0); Mean Corpuscular Hemoglobin 31.2 pg (27.0-33.0); Mean Corpuscular Volume 88.1 fL (80.0-98.0); Mean Platelet Volume 11.1 fL (9.4-12.4); Monocytes Absolute Auto 0.5 X10*3/uL (0.1-1.2); Neutrophils Percent Auto 58.9 % (45-73); Platelet Count 233 X10*3/uL (160-400); Red Blood Count 5.06 X10*6/uL (4.60-5.80); Red Cell Distribution Width 12.5 % (11.0-16.0); White Blood Count 6.8 X10*3/uL (4.8-10.8)
[2023-11-05 14:14] LABS: Prostate Specific Antigen Scr 0.72 ng/mL (<0.05-4.0)
== END 2023-11-05 11:53 | disposition home or self-care (01) ==
LOC: HO.HMGCLDS 11:52
PROVIDERS: PCP Nurse Practitioner Family; Visit Provider Nurse Practitioner Family
DX: D72.829 Elevated white blood cell count, unspecified (principal); Z12.5 Encounter for screening for malignant neoplasm of prostate
CPT/HCPCS: 36415; 84153; 85025

== ENCOUNTER 2023-11-16 08:27 | Outpatient (AMB) | payer OTHER, SELFPAY ==
--- NOTE | 2023-11-16 08:42 | A.OFFPC_ITS ---
Vital Signs 11/16/23 08:44 Height 6 ft Weight 249 lb BMI 33.8 BP 114/80 Blood Pressure Location Rt brachial Position Sitting Pulse 69 Pulse Source Pulse Oximeter Pulse Oximetry (%) 97 Oxygen Delivery Method Room Air Intake Visit Reasons: 6 Month F/U Labs Intake Note: Patient here to review labs. Allergies atorvastatin [Lipitor] Adverse Reaction (Intermediate, Verified 11/16/23 08:45) didn't tolerate rosuvastatin [Crestor] Adverse Reaction (Intermediate, Verified 11/16/23 08:45) didn't tolerate venlafaxine [From Effexor] Adverse Reaction (Intermediate, Verified 11/16/23 08:45) did not tolerate Medication List - Last Reconciled 11/16/23 by GRETTA Gómez amlodipine 2.5 mg PO DAILY bisacodyl (Dulcolax (bisacodyl)) 20 mg (4 x 5 mg) PO ONCE 1 day buspirone 5 mg PO BID 30 days coenzyme Q10 (CoQ-10) 100 mg PO DAILY evolocumab (Repatha SureClick) 140 mg subcut Q2W levothyroxine 50 mcg PO DAILY lisinopril 10 mg PO DAILY metoprolol tartrate 75 mg (1.5 x 50 mg) PO BID niacin PO polyethylene glycol 3350 (Miralax) 238 grams PO ONCE [TUMERIC PO] warfarin 10 mg See Protocol PO DAILY Tobacco use date assessed: 08/10/23 Dental Screening Dental Screen Date: 08/10/23 HPI 6 Month F/U Labs HPI Details Dyslipidemia: Pt is on repatha. Will order labs. Denies chest pain, shortness of breath, and dizziness. Pt report neuropathy of his lower extremities. mostly to feet, denies any current lower back pains. Will order EMG/nerve conduction testing. Pt also c/o increased anxiety. He is interested in trying a medication for this. Pt has seen a therapist in the past but not longer does. Will have team speak with pt. Will send buspirone 5mg bid. Denies any SI and HI. [facility] Medical History Plantar fasciitis Acquired hypothyroidism Radha syndrome Sleep apnea Mixed hyperlipidemia Essential hypertension PAF (paroxysmal atrial fibrillation) Atherosclerotic cardiovascular disease Afib Surgical History History of colectomy History of esophagogastroduodenoscopy (EGD) Hx of colonoscopy Hx of CABG Family History (Reviewed 11/16/23 @ 10:01 by Jose Mulligan [facility] Father Esophageal cancer Stomach cancer Mother Heart problem Brother No problems noted. 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 How often do you have a drink containing alcohol?: Never 3. How often do you have six or more drinks on one occasion?: Never Total Score: 0 Score Reviewed/Action Taken: No PK-7 AMB Questionnaire PK-7 Date PK - 7 assessed: 08/10/23 Source: Developed by Drs. Mohamud Queen, Alvina Longoria, Ismael Damon and colleagues, with an educational sameera from [employer]. Review of Systems Const Reports as per HPI Physical exam (Primary Care) Vital Signs: Last Vital Signs Pulse 69 11/16/23 08:44 BP 114/80 11/16/23 08:44 Pulse Ox 97 11/16/23 08:44 Oxygen Delivery Method Room Air 11/16/23 08:44 BMI result Body Mass Index 33.8 Tobacco/Smoking Status: Tobacco use Status Tobacco use date assessed 08/10/23 11/16/23 08:43 Patient Tobacco Use Status Former Tobacco user 11/16/23 08:43 e-Cigarette/Vaping Use Never Used 11/16/23 08:43 Thrive Assessment: Date of Thrive Assessment Date Thrive assessed 08/10/23 11/16/23 08:43 Const General: cooperative Orientation/consciousness: patient oriented x3 Resp Effort & Inspection: normal respiratory effort Auscultation: clear to auscultation bilaterally Cardio Rate: regular rate Rhythm: regular rhythm and abnormal rhythm Heart sounds: S1 normal heart sound present and S2 normal heart sound present Neuro Other: minimal sensation with use of monofilament to bilat feet. No sensation with monofilament to right toes and to lateral right foot. General: patient oriented x3 Psych Appearance: grossly normal Mental Status: mental status grossly normal Speech and movement: Normal speech and movement present Affect: normal affect Attitude: cooperative Thought process: Normal thought process present Thought content: Normal thought content present Insight: Good insight present (Psych) Judgement: Good judgement present (Psych) Assessment and Plan Assessment & Plan (1) Mixed hyperlipidemia: Code(s): E78.2 - Mixed hyperlipidemia Plan: labs ordered (2) Neuropathy: Code(s): G62.9 - Polyneuropathy, unspecified (3) Anxiety: Code(s): F41.9 - Anxiety disorder, unspecified Plan: starting buspirone, BH to follow up with pt for therapy referral Plan The patient agreed to the use of a medical massage therapist for this encounter. Scribed for MONET Reza-BC by [facility] medical massage therapist, on 11/16/2023 at 09:00 EST. Orders: Orders Complete Blood Count Auto Diff Today E78.2 - Mixed hyperlipidemia Comprehensive [place]. Panel Fast Today E78.2 - Mixed hyperlipidemia UA CC w/rflx Micro + Cult Today E78.2 - Mixed hyperlipidemia NE nerve conduction velocity Today G62.9 - Polyneuropathy, unspecified Cortisol Random Today F41.9 - Anxiety disorder, unspecified TSH reflex Free T4 Today E78.2 - Mixed hyperlipidemia Lipid Panel Today E78.2 - Mixed hyperlipidemia NE electromyogram (EMG) Today G62.9 - Polyneuropathy, unspecified Medications: New buspirone 5 mg PO BID 30 days 60 tabs 3RF Changed From warfarin See Protocol 5mg daily to be adjusted related to INR value. orally daily; 156 tabs 1RF I48.0 - Paroxysmal atrial fibrillation To warfarin 10 mg See Protocol PO DAILY I48.0 - Paroxysmal atrial fibrillation Coding Level of Care Code Est Pt Level 3 (90340) Diagnoses Mixed hyperlipidemia E78.2 Neuropathy G62.9 Anxiety F41.9
[2023-11-16 08:44] VITALS: BP 114/80; PULSE 69; O2SAT 97; BMI 33.8
== END 2023-11-16 10:03 | disposition home or self-care (01) ==
PROVIDERS: PCP Nurse Practitioner Family; Visit Provider Nurse Practitioner Family
DX: E78.2 Mixed hyperlipidemia (principal); G62.9 Polyneuropathy, unspecified; F41.9 Anxiety disorder, unspecified
CPT/HCPCS: 99213

== ENCOUNTER 2023-11-30 08:50 | Outpatient (REF) | payer OTHER, SELFPAY ==
--- NOTE | 2023-11-30 08:52 | EMG_ITS ---
Bilateral tibial and peroneal motor studies were performed. Bilateral superficial peroneal, sural, and median and lateral plantar mixed sensory studies were performed. Tibial H reflexes were obtained and paraspinal muscles were tested with a needle. IMPRESSION: Moderate to severe axonal, sensory or motor, somewhat patchy peripheral neuropathy. MD CHUYITA Nowak/DANY / [phone]
== END 2023-11-30 08:51 | disposition home or self-care (01) ==
LOC: HO.NEURO 08:50
PROVIDERS: PCP Nurse Practitioner Family; Visit Provider Nurse Practitioner Family
DX: G62.9 Polyneuropathy, unspecified (principal)
CPT/HCPCS: 95886; 95913

== ENCOUNTER 2023-12-02 08:16 | Outpatient (AMB) | payer OTHER, SELFPAY ==
--- NOTE | 2023-12-02 08:24 | MHC.OFFVISCO ---
Intake Intake Visit Reasons: Anticoagulation Allergies atorvastatin [Lipitor] Adverse Reaction (Intermediate, Verified 12/02/23 08:19) didn't tolerate rosuvastatin [Crestor] Adverse Reaction (Intermediate, Verified 12/02/23 08:19) didn't tolerate venlafaxine [From Effexor] Adverse Reaction (Intermediate, Verified 12/02/23 08:19) did not tolerate Medication List - Last Reconciled 12/02/23 by Jonelle Palma RN amlodipine 2.5 mg PO DAILY bisacodyl (Dulcolax (bisacodyl)) 20 mg (4 x 5 mg) PO ONCE 1 day buspirone 10 mg PO BID 30 days coenzyme Q10 (CoQ-10) 100 mg PO DAILY evolocumab (Repatha SureClick) 140 mg subcut Q2W levothyroxine 50 mcg PO DAILY lisinopril 10 mg PO DAILY metoprolol tartrate 75 mg (1.5 x 50 mg) PO BID niacin PO polyethylene glycol 3350 (Miralax) 238 grams PO ONCE [TUMERIC PO] warfarin 10 mg See Protocol PO DAILY Nursing Note INR 3.1-?? out of therapeutic range of 2-3 Medications and supplements reviewed Patient status: neuropathy testing Medications or supplements: no changes Diet: same Denies any signs and symptoms of bleeding or clotting or unusual bruising Bleeding, bruising, clotting discussed Nutritional guidance given: eat greens today Dose: 10mg x 6, 12.5mg x 1 F/U INR Date : pt req 4 weeks? Patient verbalizing understanding of instructions given. Anti-Coag Initial Assessment Social Hx Patient Tobacco Use Status: Former Tobacco user alcohol intake: former Alcohol intake frequency: former alcohol drinker Cardiovascular Hx: HTN, CAD, [place] and Arrhythmias Endocrine Hx: Thyroid Disease Musculoskeletal Hx: Arthritis (knees, neck and back) Blood Disorder Hx: Hyperlipidemia GI Hx: Diverticulosis (hx diverticulitis- bowel resection ) Neurological Hx: Migraines/Headaches Cancer HX: No Psych. 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
[2023-12-02 08:25] LABS: Prothrombin Time Whole Bld POC 37.1 sec (11.1-13.5); ~PT, ~INR - Anti Coag Clinic 3.1 (0.9-1.1)
== END 2023-12-02 08:47 | disposition home or self-care (01) ==
LOC: HO.ACS 08:16
PROVIDERS: PCP Nurse Practitioner Family; Visit Provider Internal Medicine
DX: Z79.01 Long term (current) use of anticoagulants (principal)

== ENCOUNTER → 2023-12-02 08:16 | Outpatient (BNVA) | payer OTHER, SELFPAY | PROVIDERS: PCP Nurse Practitioner Family; Visit Provider Internal Medicine | DX: I48.0 Paroxysmal atrial fibrillation (principal); Z79.01 Long term (current) use of anticoagulants; Z51.81 Encounter for therapeutic drug level monitoring | CPT/HCPCS: 85610; 99211 ==

== ENCOUNTER 2023-12-09 07:48 | Outpatient (AMB) | payer OTHER, SELFPAY ==
--- NOTE | 2023-12-09 07:11 | A.OFFPC_ITS ---
Intake Visit Reasons: Anxiety followup Allergies atorvastatin [Lipitor] Adverse Reaction (Intermediate, Verified 12/02/23 08:19) didn't tolerate rosuvastatin [Crestor] Adverse Reaction (Intermediate, Verified 12/02/23 08:19) didn't tolerate venlafaxine [From Effexor] Adverse Reaction (Intermediate, Verified 12/02/23 08:19) did not tolerate Tobacco use date assessed: 08/10/23 Dental Screening Dental Screen Date: 08/10/23 HPI Anxiety followup HPI Details Anxiety: Pt is taking buspirone 10mg bid. He reports that this medication is somewhat effective but he does report some ongoing anxiety, especially in the am. Pt reports waking up at night/morning and pacing and dry heaving. Will increase to 15mg bid. Denies any SI and HI. Pt is on the waiting list for a therapist. Pt reports some palpitations. He does have a hx of afib. Will order holter to see if palpitations and anxiety are correlating with afib. [facility] Medical History Plantar fasciitis Acquired hypothyroidism Radha syndrome Sleep apnea Mixed hyperlipidemia Essential hypertension PAF (paroxysmal atrial fibrillation) Atherosclerotic cardiovascular disease Afib Surgical History History of colectomy History of esophagogastroduodenoscopy (EGD) Hx of colonoscopy Hx of CABG Family History Father Esophageal cancer Stomach cancer Mother Heart problem Brother No problems noted. 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 Mohamud Queen, Alvina Longoria, Ismael Damon and colleagues, with an educational sameera from [employer]. Review of Systems Const Reports as per HPI Physical exam (Primary Care) Tobacco/Smoking Status: Tobacco use Status Tobacco use date assessed 08/10/23 12/09/23 07:16 Patient Tobacco Use Status Former Tobacco user 12/09/23 07:16 e-Cigarette/Vaping Use Never Used 12/09/23 07:16 Thrive Assessment: Date of Thrive Assessment Date Thrive assessed 08/10/23 12/09/23 07:16 Const General: cooperative Orientation/consciousness: patient oriented x3 Neuro General: patient oriented x3 Psych Appearance: grossly normal Mental Status: mental status grossly normal Speech and movement: Clear speech present Affect: normal affect Attitude: cooperative Thought process: Normal thought process present Thought content: Normal thought content present Insight: Good insight present (Psych) Judgement: Good judgement present (Psych) Telehealth Telehealth Telehealth Platform: [employer] Location of provider rendering services: practice address Location of patient: address on file Patient Identification confirmed using: Name, : Yes Telehealth method: video Patient verbally consented to treatment: Yes Patient verbally consented to billing insurance company: Yes Patient informed of any privacy concerns related to visit: Yes Minutes spent on Phone/Video with Pt.: 15 Assessment and Plan Assessment & Plan (1) Afib: Code(s): I48.91 - Unspecified atrial fibrillation Plan: Holter ordered (2) Anxiety: Code(s): F41.9 - Anxiety disorder, unspecified Plan: Holter ordered, increased buspirone to 15mg bid (3) Palpitations: Code(s): R00.2 - Palpitations Plan: Holter ordered Plan The patient agreed to the use of a medical assistant ob gyn for this encounter. Scribed for GRETTA Reza by [facility] medical assistant ob gyn, on 12/09/2023 at 07:15 EST. Orders: Orders ECG 3 day holter monitor Today F41.9 - Anxiety disorder, unspecified, I48.91 - Unspecified atrial fibrillation, R00.2 - Palpitations Medications: Changed From buspirone 10 mg PO BID 30 days 60 tabs 3RF To buspirone 15 mg PO BID 30 days 60 tabs 3RF Coding Level of Care Code Tele Est Pt Level 3 (27538) Diagnoses Afib I48.91 Anxiety F41.9 Palpitations R00.2
== END 2023-12-09 08:21 | disposition home or self-care (01) ==
LOC: HO.HMGC 07:48
PROVIDERS: PCP Nurse Practitioner Family; Visit Provider Nurse Practitioner Family
DX: I48.91 Unspecified atrial fibrillation (principal); F41.9 Anxiety disorder, unspecified; R00.2 Palpitations
CPT/HCPCS: 99213

== ENCOUNTER 2023-12-16 10:20 | Outpatient (AMB) | payer OTHER, SELFPAY ==
--- NOTE | 2023-12-16 10:35 | MHC.OFFVIS ---
Vital Signs 12/16/23 10:37 Height 6 ft Weight 250 lb 7.122 oz BMI 34.0 BP 112/74 Blood Pressure Location Lt brachial Position Sitting Pulse 57 Intake Visit Reasons: 1 year fu [employer] Required: No Accompanied by: Self / Same As Patient Allergies atorvastatin [Lipitor] Adverse Reaction (Intermediate, Verified 12/02/23 08:19) didn't tolerate rosuvastatin [Crestor] Adverse Reaction (Intermediate, Verified 12/02/23 08:19) didn't tolerate venlafaxine [From Effexor] Adverse Reaction (Intermediate, Verified 12/02/23 08:19) did not tolerate Medication List - Last Reconciled 12/16/23 by Sidney Collier MD amlodipine 2.5 mg PO DAILY bisacodyl (Dulcolax (bisacodyl)) 20 mg (4 x 5 mg) PO ONCE 1 day buspirone 15 mg PO BID 30 days coenzyme Q10 (CoQ-10) 100 mg PO DAILY evolocumab (Repatha SureClick) 140 mg subcut Q2W gabapentin 100 mg PO BEDTIME 30 days levothyroxine 50 mcg PO DAILY lisinopril 10 mg PO DAILY metoprolol tartrate 75 mg (1.5 x 50 mg) PO BID niacin PO polyethylene glycol 3350 (Miralax) 238 grams PO ONCE [TUMERIC PO] warfarin 10 mg See Protocol PO DAILY HPI Comments Details: Deacon returns for follow-up regarding atrial fibrillation as well as coronary disease. He has undergone coronary artery bypass surgery in 2011. Overall, he states he is feeling fine. No complaints like angina or shortness of breath or in fact anything cardiac sounding. Otherwise, history of statin intolerance and he has high lipids. On Repatha. [facility] Medical History Plantar fasciitis Acquired hypothyroidism Radha syndrome Sleep apnea Mixed hyperlipidemia Essential hypertension PAF (paroxysmal atrial fibrillation) Atherosclerotic cardiovascular disease Afib Surgical History History of colectomy History of esophagogastroduodenoscopy (EGD) Hx of colonoscopy Hx of CABG Family History Father Esophageal cancer Stomach cancer Mother Heart problem Brother No problems noted. 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 Current occupational exposures/hazards: Yes Cognitive needs: No Hearing needs: No Vision needs: No Review of Systems Const Denies chills, Denies fatigue, Denies fever(s), Denies weight gain and Denies weight loss ENT Denies dizziness Card Denies chest pain, Denies leg edema, Denies lightheadedness, Denies palpitations, Denies dyspnea on exertion, Denies orthopnea and Denies other Resp Denies cough and Denies dyspnea on exertion GI Denies hematochezia and Denies change in stool character Musc Denies abnormal gait, Denies muscle weakness, Denies numbness, Denies radiating pain into limb and Denies tingling Neuro Denies abnormal gait, Denies dizziness, Denies numbness and Denies tingling Endo Denies fatigue and Denies palpitations Physical Exam Vital Signs: Last Vital Signs Pulse 57 12/16/23 10:37 BP 112/74 12/16/23 10:37 BMI result Body Mass Index 34.0 Const General: comfortable and no acute distress Orientation/consciousness: patient oriented x3 HEENT Other: Unremarkable Head: Yes normal to inspection Neck Neck: Yes normal visual inspection Chest Chest palpation & inspection: normal inspection of the chest Resp Auscultation: clear to auscultation bilaterally Cardio Palpation: normal PMI Heart sounds: S1 normal heart sound present, S2 normal heart sound present, no gallops, no murmurs and no rubs GI Palpation (GI): Soft to palpation Back/Spine/Pelvis Other: unremarkable Skin General skin exam: no rashes or lesions noted Neuro General: patient oriented x3 Extrem General: Yes normal to inspection Psych Mental Status: mental status grossly normal Office Procedures EKG Details: EKG with sinus bradycardia, 57/Min; slight nonspecific ST-T changes inferior leads but otherwise unremarkable[place] [id number], Complete Assessment & Plan Assessment & Plan (1) Atherosclerotic cardiovascular disease: Code(s): I25.10 - Atherosclerotic heart disease of mechoopda coronary artery without angina pectoris Category: Medical Plan: In the last echocardiogram, LVEF 60-65%. Basal inferior/inferoseptal hypokinesis. No significant valvular findings. Mild ascending aortic dilatation at 3.9 cm. In the stress test, he was able to exercise for 10.1 Mets. Reached 90% of max predicted heart rate. No angina. Normal blood pressure response. Borderline EKG changes during recovery. Perfusion imaging reported normal. Patient himself has absolutely no symptoms. Optimal medical therapy. Advised report if any recurrence of chest pain or other concerns. (2) PAF (paroxysmal atrial fibrillation): Code(s): I48.0 - Paroxysmal atrial fibrillation Category: Medical Plan: Stable. May continue beta-blockers and warfarin. (3) Essential hypertension: Code(s): I10 - Essential (primary) hypertension Category: Medical Plan: Stable. No changes. (4) Mixed hyperlipidemia: Code(s): E78.2 - Mixed hyperlipidemia Category: Medical Plan: Statin intolerance due to myalgias. On Repatha. His LDL levels into the 200s in the past. Most recently, in the 80s. Triglycerides were as much as in the 400s. Currently 123. Coding Level of Care Code Est Pt Level 4 (65220) Diagnoses Atherosclerotic cardiovascular disease I25.10 PAF (paroxysmal atrial fibrillation) I48.0 Essential hypertension I10 Mixed hyperlipidemia E78.2 CPT Codes EKG - CPT: 02937-[id number], Complete ([id number])
[2023-12-16 10:37] VITALS: BP 112/74; PULSE 57; BMI 34.0
== END 2023-12-16 10:56 | disposition home or self-care (01) ==
PROVIDERS: PCP Nurse Practitioner Family; Visit Provider Internal Medicine
DX: I25.10 Atherosclerotic heart disease of native coronary artery without angina pectoris (principal); I48.0 Paroxysmal atrial fibrillation; I10 Essential (primary) hypertension; E78.2 Mixed hyperlipidemia
CPT/HCPCS: 93010; 99214

== ENCOUNTER → 2023-12-16 10:20 | Outpatient (BNVA) | payer OTHER, SELFPAY | PROVIDERS: PCP Nurse Practitioner Family; Visit Provider Internal Medicine | DX: I25.10 Atherosclerotic heart disease of native coronary artery without angina pectoris (principal); I48.0 Paroxysmal atrial fibrillation; I10 Essential (primary) hypertension; E78.2 Mixed hyperlipidemia; Z95.1 Presence of aortocoronary bypass graft | CPT/HCPCS: 93005; 99212 ==

== ENCOUNTER 2023-12-21 07:55 | Outpatient (REF) | payer OTHER, SELFPAY ==
[2023-12-21 10:20] LABS: MANUAL DIFF FLAG NO
[2023-12-21 10:27] LABS: Basophils Absolute Auto 0.1 X10*3/uL (0.0-0.2); Basophils Percent Auto 0.7 % (0-2); Eosinophils Absolute Auto 0.2 X10*3/uL (0.0-0.4); Eosinophils Percent Auto 3.3 % (0-4); Hematocrit 45.5 % (42.0-52.0); Hemoglobin 15.9 g/dl (14.0-18.0); Imm Gran Abs Auto 0.02 X10*3/uL (0.00-0.03); Imm Gran Pct Auto 0.3 % (0.0-0.4); Lymphocytes Absolute Auto 1.8 X10*3/uL (1.2-4.9); Lymphocytes Percent Auto 26.1 % (20-40); Mean Corpuscular HGB Conc 34.9 g/dl (31.0-36.0); Mean Corpuscular Hemoglobin 30.8 pg (27.0-33.0); Mean Platelet Volume 10.7 fL (9.4-12.4); Monocytes Absolute Auto 0.5 X10*3/uL (0.1-1.2); Monocytes Percent Auto 7.4 % (2-11); Neutrophils Absolute Auto 4.2 x10*3/uL (2.0-8.3); Neutrophils Percent Auto 62.2 % (45-73); Platelet Count 228 X10*3/uL (160-400); Red Blood Count 5.17 X10*6/uL (4.60-5.80); Red Cell Distribution Width 12.5 % (11.0-16.0); White Blood Count 6.8 X10*3/uL (4.8-10.8)
[2023-12-21 10:58] LABS: Alanine Aminotransferase 50 U/L (0-40); Albumin Level 4.5 g/dL (3.5-5.0); Alkaline Phosphatase 51 U/L (39-117); Anion Gap 17 (12-20); Aspartate Amino Transferase 33 U/L (5-37); Bilirubin Total 0.5 mg/dL (0.0-1.0); Blood Urea Nitrogen 18 mg/dL (9-16); Carbon Dioxide 23 mmol/L (22-29); Chloride 104 mmol/L (96-108); Cholesterol 162 mg/dL (<200); Estimated Glomerular Filt Rate > 60; Glucose Fasting 137 mg/dL (60-99); HDL Cholesterol 38 mg/dL (>40); LDL Cholesterol Calculated 83 mg/dL (<100); Potassium 4.3 mmol/L (3.3-5.1); Sodium 140 mmol/L (135-145); Total Protein 7.5 g/dL (6.5-8.0); Triglycerides 205 mg/dL (<150)
[2023-12-21 11:15] LABS: Appearance Urine Clear; Color Urine Yellow; Glucose Urine UA Negative (Negative); Leukocyte Esterase Urine Negative (Negative); Nitrite Urine Negative (Negative); PH 5.5 (5.0-9.0); Urine Blood Negative (Negative); Urine Ketones Negative (Negative); Urine Protein Negative (Neg-Trace)
[2023-12-21 11:16] LABS: TSH reflex Free T4 2.71 uIU/mL (0.32-4.0)
== END 2023-12-21 07:56 | disposition home or self-care (01) ==
LOC: HO.HMGCLDS 07:55
PROVIDERS: PCP Nurse Practitioner Family; Visit Provider Nurse Practitioner Family
DX: E78.2 Mixed hyperlipidemia (principal); F41.9 Anxiety disorder, unspecified
CPT/HCPCS: 36415; 80053; 80061; 81003; 82533; 84443; 85025

== ENCOUNTER 2023-12-30 08:25 | Outpatient (AMB) | payer OTHER, SELFPAY ==
[2023-12-30 08:45] LABS: Prothrombin Time Whole Bld POC 18.4 sec (11.1-13.5); ~PT, ~INR - Anti Coag Clinic 1.5 (0.9-1.1)
--- NOTE | 2023-12-30 08:49 | MHC.OFFVISCO ---
Intake Intake Visit Reasons: Anticoagulation Allergies atorvastatin [Lipitor] Adverse Reaction (Intermediate, Verified 12/30/23 08:32) didn't tolerate rosuvastatin [Crestor] Adverse Reaction (Intermediate, Verified 12/30/23 08:32) didn't tolerate venlafaxine [From Effexor] Adverse Reaction (Intermediate, Verified 12/30/23 08:32) did not tolerate Medication List - Last Reconciled 12/30/23 by Shraddha Martinez, RN amlodipine 2.5 mg PO DAILY bisacodyl (Dulcolax (bisacodyl)) 20 mg (4 x 5 mg) PO ONCE 1 day blood-glucose meter (FreeStyle Lite Meter kit) As directed buspirone 15 mg PO BID 30 days coenzyme Q10 (CoQ-10) 100 mg PO DAILY evolocumab (Repatha SureClick) 140 mg subcut Q2W FreeStyle Lite Strips (blood sugar diagnostic) Test blood sugar once a day NS gabapentin 100 mg PO BEDTIME 30 days lancets (FreeStyle Lancets) Test blood sugar twice a day levothyroxine 50 mcg PO DAILY lisinopril 10 mg PO DAILY metoprolol tartrate 75 mg (1.5 x 50 mg) PO BID niacin PO polyethylene glycol 3350 (Miralax) 238 grams PO ONCE [TUMERIC PO] warfarin 10 mg See Protocol PO DAILY Nursing Note INR 1.5?out of therapeutic range of 2-3 Medications and supplements reviewed Patient status: well Medications or supplements: no changes Diet: usual diet for pt Denies any signs and symptoms of bleeding or clotting or unusual bruising Bleeding, bruising, clotting discussed Nutritional guidance given: to avoid greens the next 2 days. Food list reviewed andpt to have a serving a day of foods form the list that raises the INR Dose: 12.5mg today (10mg) then resume usual dose of 10mg X 6 days and 12.5mg X 1 day F/U INR Date : 1 week?? Patient verbalizing understanding of instructions given. Anti-Coag Initial Assessment Social Hx Patient Tobacco Use Status: Former Tobacco user alcohol intake: former Alcohol intake frequency: former alcohol drinker Cardiovascular Hx: HTN, CAD, [place] and Arrhythmias Endocrine Hx: Thyroid Disease Musculoskeletal Hx: Arthritis (knees, neck and back) Blood Disorder Hx: Hyperlipidemia GI Hx: Diverticulosis (hx diverticulitis- bowel resection ) Neurological Hx: Migraines/Headaches Cancer HX: No Psych. Illness/Depression: No Coding Level of Care Code Est Patient Level 1 Diagnoses Current use of anticoagulant therapy Z79.01 Results AMB INR Fingerstick AMB INR Fingerstick 1.5 Last Edit by Shraddha Martinez RN on 12/30/23 08:52 interface delay Assessment & Plan Assessment & Plan (1) Current use of anticoagulant therapy: Code(s): Z79.01 - [facility] (current) use of anticoagulants Category: Medical
== END 2023-12-30 08:56 | disposition home or self-care (01) ==
LOC: HO.ACS 08:25
PROVIDERS: PCP Nurse Practitioner Family; Visit Provider Internal Medicine
DX: Z79.01 Long term (current) use of anticoagulants (principal)

== ENCOUNTER → 2023-12-30 08:25 | Outpatient (BNVA) | payer OTHER, SELFPAY | PROVIDERS: PCP Nurse Practitioner Family; Visit Provider Internal Medicine | DX: I48.0 Paroxysmal atrial fibrillation (principal); Z79.01 Long term (current) use of anticoagulants; Z51.81 Encounter for therapeutic drug level monitoring | CPT/HCPCS: 85610; 99211 ==

== ENCOUNTER 2024-01-07 08:18 | Outpatient (AMB) | payer OTHER, SELFPAY ==
--- NOTE | 2024-01-07 08:29 | MHC.OFFVISCO ---
Intake Intake Visit Reasons: Anticoagulation Allergies atorvastatin [Lipitor] Adverse Reaction (Intermediate, Verified 01/07/24 08:19) didn't tolerate rosuvastatin [Crestor] Adverse Reaction (Intermediate, Verified 01/07/24 08:19) didn't tolerate venlafaxine [From Effexor] Adverse Reaction (Intermediate, Verified 01/07/24 08:19) did not tolerate Medication List - Last Reconciled 01/07/24 by Mago Schmidt RN amlodipine 2.5 mg PO DAILY bisacodyl (Dulcolax (bisacodyl)) 20 mg (4 x 5 mg) PO ONCE 1 day blood-glucose meter (FreeStyle Lite Meter kit) As directed buspirone 15 mg PO BID 30 days coenzyme Q10 (CoQ-10) 100 mg PO DAILY evolocumab (Repatha SureClick) 140 mg subcut Q2W FreeStyle Lite Strips (blood sugar diagnostic) Test blood sugar once a day NS gabapentin 300 mg PO BEDTIME 30 days lancets (FreeStyle Lancets) Test blood sugar twice a day levothyroxine 50 mcg PO DAILY lisinopril 10 mg PO DAILY metoprolol tartrate 75 mg (1.5 x 50 mg) PO BID niacin PO polyethylene glycol 3350 (Miralax) 238 grams PO ONCE [TUMERIC PO] warfarin 10 mg See Protocol PO DAILY Nursing Note INR: 2.5 in therapeutic range Medications and supplements reviewed No changes in health, diet, medications, or supplements, Denies any signs and symptoms of bleeding or bruising or clotting. Bleeding, bruising, clotting discussed Nutritional guidance given - review food list weekly Dose: resume usual dose 12.5mg x 1 day/ 10mg x 6 days F/U INR: 4 weeks per pt request believes previous low inr was missed dose related and possibly some diet Patient verbalizes understanding of instructions given Anti-Coag Initial Assessment Social Hx Patient Tobacco Use Status: Former Tobacco user alcohol intake: former Alcohol intake frequency: former alcohol drinker Cardiovascular Hx: HTN, CAD, [place] and Arrhythmias Endocrine Hx: Thyroid Disease Musculoskeletal Hx: Arthritis (knees, neck and back) Blood Disorder Hx: Hyperlipidemia GI Hx: Diverticulosis (hx diverticulitis- bowel resection ) Neurological Hx: Migraines/Headaches Cancer HX: No Psych. Illness/Depression: No Coding Level of Care Code Est Patient Level 1 Diagnoses Current use of anticoagulant therapy Z79.01 Results AMB INR Fingerstick AMB INR Fingerstick 2.5 Last Edit by Mago Schmidt RN on 01/07/24 08:27 manual entry Assessment & Plan Assessment & Plan (1) Current use of anticoagulant therapy: Code(s): Z79.01 - buttermaker (current) use of anticoagulants Category: Medical
[2024-01-07 08:30] LABS: Prothrombin Time Whole Bld POC 29.4 sec (11.1-13.5); ~PT, ~INR - Anti Coag Clinic 2.5 (0.9-1.1)
== END 2024-01-07 08:31 | disposition home or self-care (01) ==
LOC: HO.ACS 08:18
PROVIDERS: PCP Nurse Practitioner Family; Visit Provider Internal Medicine
DX: Z79.01 Long term (current) use of anticoagulants (principal)

== ENCOUNTER → 2024-01-07 08:18 | Outpatient (BNVA) | payer OTHER, SELFPAY | PROVIDERS: PCP Nurse Practitioner Family; Visit Provider Internal Medicine | DX: I48.0 Paroxysmal atrial fibrillation (principal); Z79.01 Long term (current) use of anticoagulants; Z51.81 Encounter for therapeutic drug level monitoring | CPT/HCPCS: 85610; 99211 ==

== ENCOUNTER 2024-02-04 08:02 | Outpatient (AMB) | payer OTHER, SELFPAY ==
[2024-02-04 08:08] LABS: Prothrombin Time Whole Bld POC 41.4 sec (11.1-13.5); ~PT, ~INR - Anti Coag Clinic 3.4 (0.9-1.1)
--- NOTE | 2024-02-04 08:15 | MHC.OFFVISCO ---
Intake Intake Visit Reasons: Anticoagulation Allergies atorvastatin [Lipitor] Adverse Reaction (Intermediate, Verified 02/04/24 08:09) didn't tolerate rosuvastatin [Crestor] Adverse Reaction (Intermediate, Verified 02/04/24 08:09) didn't tolerate venlafaxine [From Effexor] Adverse Reaction (Intermediate, Verified 02/04/24 08:09) did not tolerate Medication List - Last Reconciled 02/04/24 by Jayleen Dixon RN amlodipine 2.5 mg PO DAILY bisacodyl (Dulcolax (bisacodyl)) 20 mg (4 x 5 mg) PO ONCE 1 day blood-glucose meter (FreeStyle Lite Meter kit) As directed buspirone 15 mg PO BID 30 days coenzyme Q10 (CoQ-10) 100 mg PO DAILY evolocumab (Repatha SureClick) 140 mg subcut Q2W FreeStyle Lite Strips (blood sugar diagnostic) Test blood sugar once a day NS gabapentin 300 mg PO BEDTIME 30 days lancets (FreeStyle Lancets) Test blood sugar twice a day levothyroxine 50 mcg PO DAILY lisinopril 10 mg PO DAILY metoprolol tartrate 75 mg (1.5 x 50 mg) PO BID niacin PO polyethylene glycol 3350 (Miralax) 238 grams PO ONCE [TUMERIC PO] warfarin 10 mg See Protocol PO DAILY Nursing Note NO CP,SOB,DIET/MED CHANGES,FALLS OR SX OF BLEEDING. REDUCE DOSE TODAY THEN RESUME USUAL DOSE AND FOLLOW-UP IN 4 WEEKS. GOOD UNDERSTANDING OF DOSING INSTR. JUDITH 1-2X WEEKLY Anti-Coag Initial Assessment Social Hx Patient Tobacco Use Status: Former Tobacco user alcohol intake: former Alcohol intake frequency: former alcohol drinker Cardiovascular Hx: HTN, CAD, CT and Arrhythmias Endocrine Hx: Thyroid Disease Musculoskeletal Hx: Arthritis Blood Disorder Hx: Hyperlipidemia GI Hx: Diverticulosis Neurological Hx: Migraines/Headaches Cancer HX: No Psych. Illness/Depression: No Coding Level of Care Code Est Patient Level 1 Diagnoses Current use of anticoagulant therapy Z79.01 Assessment & Plan Assessment & Plan (1) Current use of anticoagulant therapy: Code(s): Z79.01 - longterm (current) use of anticoagulants Category: Medical
== END 2024-02-04 08:16 | disposition home or self-care (01) ==
LOC: HO.ACS 08:02
PROVIDERS: PCP Nurse Practitioner Family; Visit Provider Internal Medicine
DX: Z79.01 Long term (current) use of anticoagulants (principal)

== ENCOUNTER → 2024-02-04 08:02 | Outpatient (BNVA) | payer OTHER, SELFPAY | PROVIDERS: PCP Nurse Practitioner Family; Visit Provider Internal Medicine | DX: I48.0 Paroxysmal atrial fibrillation (principal); Z79.01 Long term (current) use of anticoagulants; Z51.81 Encounter for therapeutic drug level monitoring | CPT/HCPCS: 85610; 99211 ==

== ENCOUNTER 2024-02-16 09:09 | Outpatient (AMB) | payer OTHER, SELFPAY ==
[2024-02-16 09:14] VITALS: BP 120/74; PULSE 78; O2SAT 98; BMI 34.3
--- NOTE | 2024-02-16 09:14 | A.OFFPC_ITS ---
Vital Signs 02/16/24 09:14 Height 6 ft Weight 253 lb BMI 34.3 BP 120/74 Blood Pressure Location Rt brachial Position Sitting Pulse 78 Pulse Source Pulse Oximeter Pulse Oximetry (%) 98 Oxygen Delivery Method Room Air Intake Visit Reasons: 3m f/u Intake Note: pt is here for 3 month follow up, patient declined flu vaccine today. Cloth Mercerizing Supervisor Required: No Accompanied by: Self / Same As Patient Allergies atorvastatin [Lipitor] Adverse Reaction (Intermediate, Verified 02/16/24 09:14) didn't tolerate rosuvastatin [Crestor] Adverse Reaction (Intermediate, Verified 02/16/24 09:14) didn't tolerate venlafaxine [From Effexor] Adverse Reaction (Intermediate, Verified 02/16/24 09:14) did not tolerate Medication List - Last Reconciled 02/16/24 by Jose Mulligan, NETWORK SYSTEMS INTEGRATOR- amlodipine 2.5 mg PO DAILY bisacodyl (Dulcolax (bisacodyl)) 20 mg (4 x 5 mg) PO ONCE 1 day blood-glucose meter (FreeStyle Lite Meter kit) As directed buspirone 15 mg PO BID 30 days coenzyme Q10 (CoQ-10) 100 mg PO DAILY evolocumab (Repatha SureClick) 140 mg subcut Q2W FreeStyle Lite Strips (blood sugar diagnostic) Test blood sugar once a day NS gabapentin 300 mg PO BEDTIME 30 days lancets (FreeStyle Lancets) Test blood sugar twice a day levothyroxine 50 mcg PO DAILY lisinopril 10 mg PO DAILY metoprolol tartrate 75 mg (1.5 x 50 mg) PO BID niacin PO polyethylene glycol 3350 (Miralax) 238 grams PO ONCE [TUMERIC PO] warfarin 10 mg See Protocol PO DAILY Tobacco use date assessed: 08/10/23 Dental Screening Dental Screen Date: 08/10/23 HPI 3m f/u HPI Details HTN: Blood pressure is stable, managed with amlodipine 2.5mg, lisinopril 10mg, and metoprolol 75mg bid. Denies chest pain, shortness of breath, headache, dizziness, and blurred vision. Pt's last fasting blood sugar was elevated at 137. Pt reports that he was not truly fasting for these labs (drank coffee with sugar + cream). Will repeat lab. Pt is following up with cardiology. Pt reports ongoing neuropathy at night. Will increase gabapentin from 300mg to 600mg. Note: Pt needs to have a holter monitor before his colonoscopy. [facility] Medical History Fatty liver Plantar fasciitis Acquired hypothyroidism Radha syndrome Sleep apnea Mixed hyperlipidemia Essential hypertension PAF (paroxysmal atrial fibrillation) Atherosclerotic cardiovascular disease Afib Surgical History History of colectomy History of esophagogastroduodenoscopy (EGD) Hx of colonoscopy Hx of CABG Family History Father Esophageal cancer Stomach cancer Mother Heart problem Brother No problems noted. 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 55550 - PHQ-9 Billing: Patient declined-do not bill Source: Developed by Drs. Mohamud Queen, Alvina Longoria, Ismael Damon and colleagues, with an educational sameera from [employer]. Thrive Questionnaire Date Thrive assessed: 02/16/24 I am a: Patient What is your living situation today?: I choose not to answer this question Within the past 12 months, did the food you bought not last and you didn't have the money to get more?: I choose not to answer this question Within the past 12 months, did you worry whether your food would run out before you got money to buy more?: I choose not to answer this question Do you have trouble paying for medicines?: I choose not to answer this question Do you have trouble getting transportation to medical appointments?: I choose not to answer this question Do you have trouble paying your heating and electricity bill?: I choose not to answer this question Do you have trouble taking care of your child, family member or friend?: I choose not to answer this question Do you have trouble with day-to-day activities such as bathing, preparing meals, shopping, managing finances, etc.?: I choose not to answer this question Are you interested in more education?: I choose not to answer this question Please select the resources that you would like help with: None THRIVE Score: 0 PK-7 AMB Questionnaire PK-7 Date PK - 7 assessed: 08/10/23 Source: Developed by Drs. Mohamud Queen, Alvina Longoria, Ismael Damon and colleagues, with an educational sameera from [employer]. Review of Systems Const Reports as per HPI Physical exam (Primary Care) Vital Signs: Last Vital Signs Pulse 78 02/16/24 09:14 BP 120/74 02/16/24 09:14 Pulse Ox 98 02/16/24 09:14 Oxygen Delivery Method Room Air 02/16/24 09:14 BMI result Body Mass Index 34.3 Tobacco/Smoking Status: Tobacco use Status Tobacco use date assessed 08/10/23 02/16/24 09:14 Patient Tobacco Use Status Former Tobacco user 02/16/24 09:14 e-Cigarette/Vaping Use Never Used 02/16/24 09:14 Thrive Assessment: Date of Thrive Assessment Date Thrive assessed 02/16/24 02/16/24 09:14 Const General: cooperative Nutritional Appearance: obese Orientation/consciousness: patient oriented x3 Resp Effort & Inspection: normal respiratory effort Auscultation: clear to auscultation bilaterally Cardio Rate: regular rate Rhythm: regular rhythm Heart sounds: S1 normal heart sound present and S2 normal heart sound present Neuro General: patient oriented x3 Psych Appearance: grossly normal Mental Status: mental status grossly normal Speech and movement: Normal speech and movement present Affect: normal affect Attitude: cooperative Thought process: Normal thought process present Thought content: Normal thought content present Insight: Good insight present (Psych) Judgement: Good judgement present (Psych) Coding Level of Care Code Est Pt Level 3 (67983) Diagnoses Elevated fasting blood sugar R73.01 Essential hypertension I10 Neuropathy G62.9 Assessment & Plan Assessment & Plan (1) Elevated fasting blood sugar: Code(s): R73.01 - Impaired fasting glucose Category: Medical Plan: Labs ordered (2) Essential hypertension: Code(s): I10 - Essential (primary) hypertension Category: Medical Plan: Stable (3) Neuropathy: Code(s): G62.9 - Polyneuropathy, unspecified Category: Medical Plan: Increasing gabapentin from 300mg to 600mg Plan The patient agreed to the use of a certified medical technician for this encounter. Scribed for GRETTA Reza by [facility] certified medical technician, on 02/16/2024 at 09:30 EST. Orders: Orders Comprehensive [facility]. Panel Fast Today R73.01 - Impaired fasting glucose Medications: Changed From gabapentin 300 mg PO BEDTIME 30 days 90 caps 0RF To gabapentin 600 mg (2 x 300 mg) PO BEDTIME 30 days 60 caps 0RF
== END 2024-02-16 11:49 | disposition home or self-care (01) ==
PROVIDERS: PCP Nurse Practitioner Family; Visit Provider Nurse Practitioner Family
DX: R73.01 Impaired fasting glucose (principal); I10 Essential (primary) hypertension; G62.9 Polyneuropathy, unspecified

== ENCOUNTER → 2024-02-16 09:09 | Outpatient (BNVA) | payer OTHER, SELFPAY | PROVIDERS: PCP Nurse Practitioner Family; Visit Provider Nurse Practitioner Family ==

== ENCOUNTER 2024-02-16 09:38 | Outpatient (REF) | payer OTHER, SELFPAY ==
[2024-02-16 14:16] LABS: Alanine Aminotransferase 43 U/L (0-40); Albumin Level 4.3 g/dL (3.5-5.0); Alkaline Phosphatase 43 U/L (39-117); Anion Gap 13 (12-20); Aspartate Amino Transferase 35 U/L (5-37); Bilirubin Total 0.3 mg/dL (0.0-1.0); Blood Urea Nitrogen 18 mg/dL (9-16); Calcium 9.2 mg/dL (8.4-10.2); Carbon Dioxide 25 mmol/L (22-29); Chloride 108 mmol/L (96-108); Estimated Glomerular Filt Rate > 60; Glucose Fasting 110 mg/dL (60-99); Potassium 4.6 mmol/L (3.3-5.1); Sodium 141 mmol/L (135-145); Total Protein 7.4 g/dL (6.5-8.0)
== END 2024-02-16 09:39 | disposition home or self-care (01) ==
LOC: HO.HMGCLDS 09:38
PROVIDERS: PCP Nurse Practitioner Family; Visit Provider Nurse Practitioner Family
DX: R73.01 Impaired fasting glucose (principal); I10 Essential (primary) hypertension; G62.9 Polyneuropathy, unspecified; Z79.899 Other long term (current) drug therapy
CPT/HCPCS: 36415; 80053; 99212

== ENCOUNTER 2024-03-03 08:02 | Outpatient (AMB) | payer OTHER, SELFPAY ==
[2024-03-03 08:10] LABS: Prothrombin Time Whole Bld POC 19.7 sec (11.1-13.5); ~PT, ~INR - Anti Coag Clinic 1.6 (0.9-1.1)
--- NOTE | 2024-03-03 08:21 | MHC.OFFVISCO ---
Intake Intake Visit Reasons: Anticoagulation Allergies atorvastatin [Lipitor] Adverse Reaction (Intermediate, Verified 03/03/24 08:03) didn't tolerate rosuvastatin [Crestor] Adverse Reaction (Intermediate, Verified 03/03/24 08:03) didn't tolerate venlafaxine [From Effexor] Adverse Reaction (Intermediate, Verified 03/03/24 08:03) did not tolerate Medication List - Last Reconciled 03/03/24 by Shraddha Martinez, RN amlodipine 2.5 mg PO DAILY bisacodyl (Dulcolax (bisacodyl)) 20 mg (4 x 5 mg) PO ONCE 1 day blood-glucose meter (FreeStyle Lite Meter kit) As directed buspirone 15 mg PO BID 30 days coenzyme Q10 (CoQ-10) 100 mg PO DAILY evolocumab (Repatha SureClick) 140 mg subcut Q2W FreeStyle Lite Strips (blood sugar diagnostic) Test blood sugar once a day NS gabapentin 600 mg (2 x 300 mg) PO BEDTIME 30 days lancets (FreeStyle Lancets) Test blood sugar twice a day levothyroxine 50 mcg PO DAILY lisinopril 10 mg PO DAILY metoprolol tartrate 75 mg (1.5 x 50 mg) PO BID niacin PO polyethylene glycol 3350 (Miralax) 238 grams PO ONCE [TUMERIC PO] warfarin 10 mg See Protocol PO DAILY Nursing Note INR 1.6?out of therapeutic range of 2-3 Medications and supplements reviewed Patient status: well Medications or supplements: no changes Diet: usual diet for pt Denies any signs and symptoms of bleeding or clotting or unusual bruising Bleeding, bruising, clotting discussed Nutritional guidance given: to avoid greens X 2 days and to have serving of foods that raise the INR the next 2 days. Food list reviewed. Dose: increase today's dose to 12.5mg (10mg), then 10mg (usual dose) then increase the next day to 12.5mg (10mg) then resume usual dose of 10mg X 6 days and 12.5mg X 1 days (Wed) F/U INR Date : 4 weeks? Patient verbalizing understanding of instructions given. Anti-Coag Initial Assessment Social Hx Patient Tobacco Use Status: Former Tobacco user alcohol intake: former Alcohol intake frequency: former alcohol drinker Cardiovascular Hx: HTN, CAD, SD and Arrhythmias Endocrine Hx: Thyroid Disease Musculoskeletal Hx: Arthritis Blood Disorder Hx: Hyperlipidemia GI Hx: Diverticulosis Neurological Hx: Migraines/Headaches Cancer HX: No Psych. Illness/Depression: No Coding Level of Care Code Est Patient Level 1 Diagnoses Current use of anticoagulant therapy Z79.01 Results AMB INR Fingerstick AMB INR Fingerstick 1.6 Last Edit by Shraddha Martinez RN on 03/03/24 08:10 interface delay Assessment & Plan Assessment & Plan (1) Current use of anticoagulant therapy: Code(s): Z79.01 - retirement (current) use of anticoagulants Category: Medical
== END 2024-03-03 08:27 | disposition home or self-care (01) ==
LOC: HO.ACS 08:02
PROVIDERS: PCP Nurse Practitioner Family; Visit Provider Internal Medicine
DX: Z79.01 Long term (current) use of anticoagulants (principal)

== ENCOUNTER → 2024-03-03 08:02 | Outpatient (BNVA) | payer OTHER, SELFPAY | PROVIDERS: PCP Nurse Practitioner Family; Visit Provider Internal Medicine | DX: I48.0 Paroxysmal atrial fibrillation (principal); Z79.01 Long term (current) use of anticoagulants; Z51.81 Encounter for therapeutic drug level monitoring | CPT/HCPCS: 85610; 99211 ==

== ENCOUNTER 2024-03-31 08:02 | Outpatient (AMB) | payer OTHER, SELFPAY ==
[2024-03-31 08:09] LABS: Prothrombin Time Whole Bld POC 28.4 sec (11.1-13.5); ~PT, ~INR - Anti Coag Clinic 2.4 (0.9-1.1)
--- NOTE | 2024-03-31 08:16 | MHC.OFFVISCO ---
Intake Intake Visit Reasons: Anticoagulation Allergies atorvastatin [Lipitor] Adverse Reaction (Intermediate, Verified 03/31/24 08:04) didn't tolerate rosuvastatin [Crestor] Adverse Reaction (Intermediate, Verified 03/31/24 08:04) didn't tolerate venlafaxine [From Effexor] Adverse Reaction (Intermediate, Verified 03/31/24 08:04) did not tolerate Medication List - Last Reconciled 03/31/24 by Shraddha Martinez, RN amlodipine 2.5 mg PO DAILY bisacodyl (Dulcolax (bisacodyl)) 20 mg (4 x 5 mg) PO ONCE 1 day blood-glucose meter (FreeStyle Lite Meter kit) As directed buspirone 15 mg PO BID 30 days coenzyme Q10 (CoQ-10) 100 mg PO DAILY evolocumab (Repatha SureClick) 140 mg subcut Q2W FreeStyle Lite Strips (blood sugar diagnostic) Test blood sugar once a day NS gabapentin 600 mg (2 x 300 mg) PO BEDTIME 30 days lancets (FreeStyle Lancets) Test blood sugar twice a day levothyroxine 50 mcg PO DAILY lisinopril 10 mg PO DAILY metoprolol tartrate 75 mg (1.5 x 50 mg) PO BID 90 days niacin PO polyethylene glycol 3350 (Miralax) 238 grams PO ONCE [TUMERIC PO] warfarin 10 mg See Protocol PO DAILY Nursing Note INR: 2.4 in therapeutic range of 2-3 Medications and supplements reviewed No changes in health, diet, medications, or supplements, Denies any signs and symptoms of bleeding or bruising or clotting. Bleeding, bruising, clotting discussed Nutritional guidance given Dose: 10mg X 6 days and 12.5mg X 1 day F/U INR: 4 weeks Patient verbalizes understanding of instructions given Anti-Coag Initial Assessment Social Hx Patient Tobacco Use Status: Former Tobacco user alcohol intake: former Alcohol intake frequency: former alcohol drinker Cardiovascular Hx: HTN, CAD, [place] and Arrhythmias Endocrine Hx: Thyroid Disease Musculoskeletal Hx: Arthritis Blood Disorder Hx: Hyperlipidemia GI Hx: Diverticulosis Neurological Hx: Migraines/Headaches Cancer HX: No Psych. Illness/Depression: No Coding Level of Care Code Est Patient Level 1 Diagnoses Current use of anticoagulant therapy Z79.01 Assessment & Plan Assessment & Plan (1) Current use of anticoagulant therapy: Code(s): Z79.01 - [facility] (current) use of anticoagulants Category: Medical
== END 2024-03-31 08:21 | disposition home or self-care (01) ==
LOC: HO.ACS 08:02
PROVIDERS: PCP Nurse Practitioner Family; Visit Provider Internal Medicine
DX: Z79.01 Long term (current) use of anticoagulants (principal)

== ENCOUNTER → 2024-03-31 08:02 | Outpatient (BNVA) | payer OTHER, SELFPAY | PROVIDERS: PCP Nurse Practitioner Family; Visit Provider Internal Medicine | DX: I48.0 Paroxysmal atrial fibrillation (principal); Z79.01 Long term (current) use of anticoagulants; Z51.81 Encounter for therapeutic drug level monitoring | CPT/HCPCS: 85610; 99211 ==

== ENCOUNTER 2024-04-20 14:30 | Emergency (ER) | payer OTHER, SELFPAY ==
--- NOTE | ~2024-04-20 | XR_ITS ---
EXAMINATION: XR CHEST CLINICAL INFORMATION: mid sternal chest pain COMPARISON: Chest x-ray on 08/02/2017 TECHNIQUE: 2 views of the chest were obtained. FINDINGS: No significant abnormality is noted involving the heart, lungs, mediastinum, bony thorax or soft tissues. XR/XR chest 2V IMPRESSION: Unremarkable examination. Electronically signed by: Ariana Mcmahan MD 04/20/2024 04:27 PM EST
--- NOTE | 2024-04-20 14:32 | ECG_ITS ---
Test Reason : CHEST PAIN Blood Pressure : / mmHG Vent. Rate : 059 BPM Atrial Rate : 059 BPM P-R Int : 198 ms QRS Dur : 080 ms QT Int : 404 ms P-R-T Axes : 017 067 030 degrees QTc Int : 399 ms Poor data quality, interpretation may be adversely affected Sinus bradycardia Otherwise normal ECG When compared with ECG of 12-SEP-2022 21:32, MI interval has decreased Referred By: Generic ED Physician Electronically Signed By:Keith Bunch
[2024-04-20 14:39] VITALS: BP 137/85; PULSE 63; RESP 18; TEMP 36.7; O2SAT 96; BMI 33.5
--- NOTE | 2024-04-20 14:42 | ED_ITS ---
HPI - Chest Pain General Chief Complaint: Chest Pain Stated Complaint: Chest pain, nausea Time Seen by Provider: 04/20/24 16:31 Source: patient, RN notes reviewed and old records reviewed Mode of arrival: ambulatory History of Present Illness ED Provider: Key Hannon PA-C HPI narrative: 58-year-old male with a past medical history hypothyroid, sleep apnea, HLD, HTN, proximal AFib, CAD s/p bypass '12 on Coumadin, presenting to the ED complaining of midsternal chest pain/tightness with associated nausea s/p shoveling and salting today around 08:00 at work. Admits chest discomfort still present however nausea resolved. Reports episode of chest pain yesterday he believes he strained his chest when lifting a door, which he feels contributed to todays symptoms. Denies SOB, pedal edema, lightheadedness/dizziness, numbness/tingling, weakness. Related Data Home Medications ?Medication ?Instructions ?Recorded ?Confirmed coenzyme Q10 100 mg capsule 100 mg PO DAILY 10/06/22 03/31/24 (CoQ-10) niacin PO 10/06/22 03/31/24 TUMERIC PO 01/12/23 03/31/24 Previous Rx's ?Medication ?Instructions ?Recorded amlodipine 2.5 mg tablet 2.5 mg PO DAILY #90 tabs 09/11/23 bisacodyl 5 mg tablet,delayed 20 mg (4 x 5 mg) PO ONCE 1 day #4 10/13/23 release (Dulcolax (bisacodyl)) tabs polyethylene glycol 3350 17 238 g PO ONCE #238 grams 10/13/23 gram/dose oral powder (Miralax) levothyroxine 50 mcg tablet 50 mcg PO DAILY #90 tabs 10/24/23 lisinopril 10 mg tablet 10 mg PO DAILY #90 tabs 10/24/23 blood-glucose meter (FreeStyle #1 ea 12/24/23 Lite Meter kit) lancets 28 gauge (FreeStyle #200 ea 12/24/23 Lancets) FreeStyle Lite Strips (blood sugar #100 ea 12/27/23 diagnostic) evolocumab 140 mg/mL subcutaneous 140 mg subcut Q2W #6 mL 02/14/24 pen injector (Cezar Taylor) buspirone 15 mg tablet 15 mg PO BID 30 days #60 tabs 03/20/24 gabapentin 300 mg capsule 600 mg (2 x 300 mg) PO BEDTIME 30 03/20/24 days #60 caps metoprolol tartrate 50 mg tablet 75 mg (1.5 x 50 mg) PO BID 90 days 03/20/24 #270 tabs warfarin 5 mg tablet 5 mg PO DAILY #156 tabs 04/07/24 Allergies Allergy/AdvReac Type Severity Reaction Status Date / Time atorvastatin [Lipitor] AdvReac Intermediate didn't Verified 04/20/24 14:42 tolerate rosuvastatin [Crestor] AdvReac Intermediate didn't Verified 04/20/24 14:42 tolerate venlafaxine [From Effexor] AdvReac Intermediate did not Verified 04/20/24 14:42 tolerate Review of Systems 2 Review of Systems: Yes all other systems are reviewed and are negative Constitutional: Constitutional: Reports as per [facility] Past Medical History Attestation statement: The following information was validated with the patient. Source: old records reviewed Medical History Fatty liver Plantar fasciitis Acquired hypothyroidism Radha syndrome Sleep apnea Mixed hyperlipidemia Essential hypertension PAF (paroxysmal atrial fibrillation) Atherosclerotic cardiovascular disease Afib Surgical History History of colectomy History of esophagogastroduodenoscopy (EGD) Hx of colonoscopy Hx of CABG Family History Family History Father Esophageal cancer Stomach cancer Mother Heart problem Brother No problems noted. 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 Current occupational exposures/hazards: Yes Cognitive needs: No Hearing needs: No Vision needs: No Physical Exam 2 Vital Signs: Vital Signs: Last Vital Signs Temp 97 F 04/20/24 18:52 Pulse 56 04/20/24 18:52 Resp 12 04/20/24 18:52 BP 109/69 04/20/24 18:52 Pulse Ox 96 04/20/24 18:52 O2 Del Method Room Air 04/20/24 18:52 BMI result Body Mass Index 33.5 Const: General: cooperative, healthy appearing and no acute distress O rientation/consciousness: patient oriented x3 Limitations: no limitations HEENT: Head: Yes normal to inspection and Yes atraumatic Ears: hearing grossly normal bilaterally General nose exam: Normal external nose present Face and sinus: Yes normal facial exam Eyes: General: appearance normal, both eyes and all related structures EOM: EOMs intact bilaterally Neck: Neck: Yes normal visual inspection and Yes no meningeal signs Chest: Other: Chest pain reproducible to palpation of chest wall Chest palpation & inspection: normal inspection of the chest, no crepitus and no tenderness Resp: Effort & Inspection: normal respiratory effort and no respiratory distress Auscultation: clear to auscultation bilaterally, no crackles, no rales and no wheezes Cardio: Rate: regular rate Heart sounds: S1 normal heart sound present and S2 normal heart sound present GI: Inspection: Yes normal to inspection Palpation (GI): Soft to palpation, nontender, no guarding and not rigid : General: Yes no CVA tenderness Back/Spine/Pelvis: Back: no CVA tenderness Skin: Rashes: no rashes Wounds: no wounds Neuro: General: patient oriented x3, tone normal and no meningeal signs C ranial nerves: Yes CN's II-XII intact bilaterally Gait exam (Neuro): Normal gait present Extrem: General: Yes normal to inspection, Yes no pedal edema and Yes no calf tenderness Course Course Course Narrative: This is a Rapid Medical Examination (RME) performed by Remi Duenas PA-C in triage. Full HPI, ROS, assessment and treatment plan per primary provider in the Main ED. 58 yo male hx anxiety, HTN, HDL, CT s/p bypass 12 yrs ago, afib on AC here for eval of 4-5/10 intensity mid sternal chest tightness since yesterday. no radiation. assoc nausea without vomiting. admits to shoveling snow and lifting a bucket of salt today - unsure if this contributed to pain. has holter monitor scheduled for next week. denies cough. + no reproducible chest wall tenderness. lungs clear. Plan: labs, ekg, cxr -no leukocytosis. H/H stable. INR therapeutic. AST/ALT mildly elevated. Initial troponin negative > will obtain 3 hour repeat XR chest 2V IMPRESSION: Unremarkable examination. -1836--troponin x2 negative. Patient reports symptomatic improvement since ED arrival. Chest pain is reproducible on exam. Lower suspicion for acute ACS at this time with negative troponins and reproducible pain. Patient is scheduled for Holter monitor placement on Wednesday. Recommended patient call corporate controller 1st thing tomorrow morning to inform of ED visit and try to get in sooner for appt. Discussed strict return precautions and worrisome signs and symptoms -case was discussed with Cardiology Dr. Bunch who is agreeable with discharge if chest pain is reproducible Results discussed with patient including worrisome signs and symptoms and strict return precautions, and when to return to the emergency department. They verbalized understanding and feel safe for discharge at this time. Medical Decision Making Medical Decision Making MDM Narrative: 58-year-old male with a past medical history hypothyroid, sleep apnea, HLD, HTN, proximal AFib, CAD s/p bypass '12 on Coumadin, presenting to the ED complaining of midsternal chest pain/tightness with associated nausea s/p shoveling and salting today around 08:00 at work. Reports episode of chest pain yesterday he believes he strained his chest when lifting a door, which he feels contributed to todays symptoms. On exam vital signs stable, NAD, nontoxic appearing, lungs CTA, no pedal edema, CP reproducible. Concern for ACS vs costochondritis/MSK strain. Rule out pneumonia/underlying lung pathology including PTX. Low suspicion for PE/DVT Plan: EKG, labs, CXR Please refer to course for remaining clinical decision making, interpretation of labs/imaging results, and discussions with consultants and/or family members. Differential Diagnosis Differential Diagnoses: The differential diagnosis associated with the presentation includes As above Admission/Observation Consideration of admission/observation: Escalation of care including admission/observation considered Lab Data [facility] Lab Attestation statement: I reviewed the patient's lab results. 04/20/24 14:47 04/20/24 14:47 Labs: Lab Results 04/20/24 04/20/24 Range/Units 14:47 17:26 WBC 7.3 (4.8-10.8) X10*3/uL RBC 5.26 (4.60-5.80) X10*6/uL Hgb 16.0 (14.0-18.0) g/dl Hct 45.3 (42.0-52.0) % MCV 86.1 (80.0-98.0) fL MCH 30.4 (27.0-33.0) pg MCHC 35.3 (31.0-36.0) g/dl RDW 12.5 (11.0-16.0) % Plt Count 231 (160-400) X10*3/uL MPV 9.3 L (9.4-12.4) fL Immature Gran % (Auto) 0.1 (0.0-0.4) % Neut % (Auto) 59.9 (45-73) % Lymph % (Auto) 29.1 (20-40) % [place] % (Auto) 8.7 (2-11) % Eos % (Auto) 1.8 (0-4) % Baso % (Auto) 0.4 (0-2) % Lymph # (Auto) 2.1 (1.2-4.9) X10*3/uL [place] # (Auto) 0.6 (0.1-1.2) X10*3/uL Eos # (Auto) 0.1 (0.0-0.4) X10*3/uL Baso # (Auto) 0.0 (0.0-0.2) X10*3/uL Abs Immat Gran (auto) 0.01 (0.00-0.03) X10*3/uL Absolute Neuts (auto) 4.3 (2.0-8.3) x10*3/uL Absolute Nucleated RBC 0.000 (0.0-0.012) X10*3/uL Nucleated RBC % (auto) 0.0 (0.0-0.2) /100WBC PT 33.9 H (10.9-12.4) SEC INR 2.9 H (0.9-1.1) Sodium 140 (135-145) mmol/L Potassium 4.1 (3.3-5.1) mmol/L Chloride 109 H (96-108) mmol/L Carbon Dioxide 25 (22-29) mmol/L Anion Gap 10 L (12-20) BUN 18 H (9-16) mg/dL Creatinine 1.16 (0.5-1.4) mg/dL Estim Creat Clear Calc 87.5 Estimated GFR > 60 Random Glucose 102 (60-115) mg/dL Calcium 9.1 (8.4-10.2) mg/dL Magnesium 1.9 (1.6-2.6) mg/dL Total Bilirubin 0.4 (0.0-1.0) mg/dL AST 38 H (5-37) U/L ALT 48 H (0-40) U/L Alkaline Phosphatase 50 (39-117) U/L Troponin I High Sens < 2.7 < 2.7 (<3.5-35.0) ng/L B-Natriuretic Peptide 25 (<100) pg/mL Total Protein 7.4 (6.5-8.0) g/dL Albumin 4.4 (3.5-5.0) g/dL Independent Interpretation I performed an independent interpretation of an: EKG (My interpretation EKG sinus bradycardia rate of 59. WA interval 198. QTC 399. WA interval has decreased when compared to prior. No STEMI) and Plain X-Ray Radiology Impression Discussion of test interpretation with radiology: I have reviewed the radiologist's reading. Independent Historian Clinical information obtained from an independent historian. History obtained from or confirmed by: Spouse External Record Review External record reviewed: Inpatient record, Office record, Outpatient record, Prior outpatient labs, Prior outpatient radiology, Primary care record and Outside ED record Tests considered The following testing was considered but not selected: As above Prescription Management I considered prescription management with: Pain Medication Chronic Conditions Patient?s care impacted by: Hypertension and Other Social Determinants Patient?s care significantly limited by Social Determinants of Health including: Other Social Determinant of Health Discharge Plan Discharge Clinical Impression: Chest pain Patient Disposition: Home, Self-Care Instructions: Chest Pain (DC) Additional Instructions: Your blood work and x-ray were reassuring Please call your corporate controller 1st thing tomorrow morning to inform of ED visit If you develop constant worsening chest pain, shortness breath, nausea/vomiting or weakness return to the ED immediately Please keep your Holter monitor appointment for Wednesday Prescriptions: No Action amlodipine 2.5 mg tablet 2.5 mg PO DAILY Qty: 90 2RF levothyroxine 50 mcg tablet 50 mcg PO DAILY Qty: 90 1RF lisinopril 10 mg tablet 10 mg PO DAILY Qty: 90 1RF (DME) blood-glucose meter [FreeStyle Lite Meter] Kit See Rx Instructions .Route Qty: 1 0RF Rx Instructions: As directed (DME) lancets [FreeStyle Lancets] 28 gauge misc See Rx Instructions .Route Qty: 200 1RF Rx Instructions: Test blood sugar twice a day (DME) FreeStyle Lite Strips Strip See Rx Instructions .Route Qty: 100 1RF Rx Instructions: Test blood sugar once a day Repatha SureClick 140 mg/mL pen injector 140 mg subcut Q2W Qty: 6 0RF Rx Instructions: [employer] - Repatha APPROVED thru 03/06/23-03/06/24. , Ref ID#: [id number] buspirone 15 mg tablet 15 mg PO BID 30 Days Qty: 60 0RF gabapentin 300 mg capsule 600 mg PO BEDTIME 30 Days Qty: 60 0RF metoprolol tartrate 50 mg tablet 75 mg PO BID 90 Days Qty: 270 3RF warfarin 5 mg tablet 5 mg PO DAILY Qty: 156 1RF bisacodyl [Dulcolax (bisacodyl)] 5 mg tablet,delayed release (DR/EC) 20 mg PO ONCE 1 Days Qty: 4 0RF Rx Instructions: take 4 tabs at noon the day before your colonoscopy polyethylene glycol 3350 [Miralax] 17 gram/dose powder 238 g PO ONCE Qty: 238 0RF Rx Instructions: As directed by gastroenterology department at [facility] coenzyme Q10 [CoQ-10] 100 mg capsule 100 mg PO DAILY niacin PO TUMERIC PO Referrals: [facility] [place] [facility] [Provider Group] - 1 day Jose Mulligan FNP-BC [Primary Care Provider] - Interventions: ED Discharge Assessment Last Done: 04/20/24 18:52 Discharge Date/Time: 04/20/24 18:53 Print Language: Greek
[2024-04-20 14:51] LABS: MANUAL DIFF FLAG NO
[2024-04-20 14:52] LABS: Basophils Percent Auto 0.4 % (0-2); Eosinophils Absolute Auto 0.1 X10*3/uL (0.0-0.4); Eosinophils Percent Auto 1.8 % (0-4); Hematocrit 45.3 % (42.0-52.0); Imm Gran Abs Auto 0.01 X10*3/uL (0.00-0.03); Imm Gran Pct Auto 0.1 % (0.0-0.4); Lymphocytes Absolute Auto 2.1 X10*3/uL (1.2-4.9); Lymphocytes Percent Auto 29.1 % (20-40); Mean Corpuscular HGB Conc 35.3 g/dl (31.0-36.0); Mean Corpuscular Hemoglobin 30.4 pg (27.0-33.0); Mean Corpuscular Volume 86.1 fL (80.0-98.0); Mean Platelet Volume 9.3 fL (9.4-12.4); Monocytes Absolute Auto 0.6 X10*3/uL (0.1-1.2); Monocytes Percent Auto 8.7 % (2-11); Neutrophils Absolute Auto 4.3 x10*3/uL (2.0-8.3); Neutrophils Percent Auto 59.9 % (45-73); Platelet Count 231 X10*3/uL (160-400); Red Blood Count 5.26 X10*6/uL (4.60-5.80); Red Cell Distribution Width 12.5 % (11.0-16.0); White Blood Count 7.3 X10*3/uL (4.8-10.8)
[2024-04-20 15:09] LABS: Alanine Aminotransferase 48 U/L (0-40); Albumin Level 4.4 g/dL (3.5-5.0); Alkaline Phosphatase 50 U/L (39-117); Anion Gap 10 (12-20); Aspartate Amino Transferase 38 U/L (5-37); Bilirubin Total 0.4 mg/dL (0.0-1.0); Blood Urea Nitrogen 18 mg/dL (9-16); Calcium 9.1 mg/dL (8.4-10.2); Carbon Dioxide 25 mmol/L (22-29); Chloride 109 mmol/L (96-108); Creatinine Clr Calc Pharmacy 87.5; Estimated Glomerular Filt Rate > 60; Glucose Random 102 mg/dL (60-115); Magnesium 1.9 mg/dL (1.6-2.6); Potassium 4.1 mmol/L (3.3-5.1); Sodium 140 mmol/L (135-145); Total Protein 7.4 g/dL (6.5-8.0)
[2024-04-20 15:14] LABS: Troponin-I High Sensitivity < 2.7 ng/L (<3.5-35.0)
[2024-04-20 17:15] VITALS: BP 115/71; PULSE 53; RESP 16; TEMP 36.5; O2SAT 98
[2024-04-20 17:21] LABS: B Type Natriuretic Peptide 25 pg/mL (<100)
[2024-04-20 17:47] LABS: INTERNATIONAL NORM RATIO 2.9 (0.9-1.1); Prothrombin Time 33.9 SEC (10.9-12.4)
[2024-04-20 18:00] LABS: Troponin-I High Sensitivity < 2.7 ng/L (<3.5-35.0)
[2024-04-20 18:52] VITALS: BP 109/69; PULSE 56; RESP 12; TEMP 36.1; O2SAT 96
== END 2024-04-20 18:53 | disposition home or self-care (01) ==
PROVIDERS: Physician Assistant; Physician Assistant Medical; Emergency Provider Emergency Medicine; PCP Nurse Practitioner Family
DX: R07.89 Other chest pain (principal); R11.0 Nausea; I10 Essential (primary) hypertension; I48.0 Paroxysmal atrial fibrillation; R06.02 Shortness of breath; Z79.01 Long term (current) use of anticoagulants; Z79.899 Other long term (current) drug therapy; Z87.891 Personal history of nicotine dependence
CPT/HCPCS: 36415; 71046; 80053; 83735; 83880; 84484; 85025; 85610; 93005; 99283; 99285

== ENCOUNTER → 2024-04-20 14:32 | Outpatient (BNV) | payer OTHER, SELFPAY | PROVIDERS: Emergency Provider Emergency Medicine; PCP Nurse Practitioner Family; Visit Provider Internal Medicine Cardiovascular Disease | DX: R07.9 Chest pain, unspecified (principal) | CPT/HCPCS: 93010 ==

== ENCOUNTER → 2024-04-24 08:10 | Outpatient (REF) | payer OTHER, SELFPAY | LOC: HO.CARD 08:10 | PROVIDERS: PCP Nurse Practitioner Family; Visit Provider Nurse Practitioner Family | DX: I48.91 Unspecified atrial fibrillation (principal); R00.2 Palpitations; F41.9 Anxiety disorder, unspecified | CPT/HCPCS: 93242 ==

== ENCOUNTER → 2024-04-24 08:15 | Outpatient (BNV) | payer OTHER, SELFPAY | PROVIDERS: PCP Nurse Practitioner Family; Visit Provider Internal Medicine | DX: I47.10 Supraventricular tachycardia, unspecified (principal) | CPT/HCPCS: 93244 ==

== ENCOUNTER 2024-04-28 08:11 | Outpatient (AMB) | payer OTHER, SELFPAY ==
[2024-04-28 08:29] LABS: Prothrombin Time Whole Bld POC 28.7 sec (11.1-13.5); ~PT, ~INR - Anti Coag Clinic 2.4 (0.9-1.1)
--- NOTE | 2024-04-28 08:31 | MHC.OFFVISCO ---
Intake Intake Visit Reasons: Anticoagulation Allergies atorvastatin [Lipitor] Adverse Reaction (Intermediate, Verified 04/28/24 08:20) didn't tolerate rosuvastatin [Crestor] Adverse Reaction (Intermediate, Verified 04/28/24 08:20) didn't tolerate venlafaxine [From Effexor] Adverse Reaction (Intermediate, Verified 04/28/24 08:20) did not tolerate Medication List - Last Reconciled 04/28/24 by Shraddha Martinez, RN amlodipine 2.5 mg PO DAILY bisacodyl (Dulcolax (bisacodyl)) 20 mg (4 x 5 mg) PO ONCE 1 day blood-glucose meter (FreeStyle Lite Meter kit) As directed buspirone 15 mg PO BID 30 days coenzyme Q10 (CoQ-10) 100 mg PO DAILY evolocumab (Repatha SureClick) 140 mg subcut Q2W FreeStyle Lite Strips (blood sugar diagnostic) Test blood sugar once a day NS gabapentin 600 mg (2 x 300 mg) PO BEDTIME 30 days lancets (FreeStyle Lancets) Test blood sugar twice a day levothyroxine 50 mcg PO DAILY lisinopril 10 mg PO DAILY metoprolol tartrate 75 mg (1.5 x 50 mg) PO BID 90 days niacin PO polyethylene glycol 3350 (Miralax) 238 grams PO ONCE [TUMERIC PO] warfarin 5 mg PO DAILY Nursing Note INR: 2.4 in therapeutic range of 2-3 Medications and supplements reviewed No changes in health, diet, medications, or supplements, Denies any signs and symptoms of bleeding or bruising or clotting. Bleeding, bruising, clotting discussed Nutritional guidance given Dose: 10mg X 6 days and 12.5mg X 1 day F/U INR: 4 weeks Patient verbalizes understanding of instructions given Anti-Coag Initial Assessment Social Hx Patient Tobacco Use Status: Former Tobacco user alcohol intake: former Alcohol intake frequency: former alcohol drinker Cardiovascular Hx: HTN, CAD, [place] and Arrhythmias Endocrine Hx: Thyroid Disease Musculoskeletal Hx: Arthritis Blood Disorder Hx: Hyperlipidemia GI Hx: Diverticulosis Neurological Hx: Migraines/Headaches Cancer HX: No Psych. Illness/Depression: No Coding Level of Care Code Est Patient Level 1 Diagnoses Current use of anticoagulant therapy Z79.01 Results AMB INR Fingerstick AMB INR Fingerstick 2.4 Last Edit by Shraddha Martinez RN on 04/28/24 08:28 interface delay Assessment & Plan Assessment & Plan (1) Current use of anticoagulant therapy: Code(s): Z79.01 - manager long term care (current) use of anticoagulants Category: Medical
== END 2024-04-28 08:32 | disposition home or self-care (01) ==
LOC: HO.ACS 08:11
PROVIDERS: PCP Nurse Practitioner Family; Visit Provider Internal Medicine
DX: Z79.01 Long term (current) use of anticoagulants (principal)

== ENCOUNTER → 2024-04-28 08:11 | Outpatient (BNVA) | payer OTHER, SELFPAY | PROVIDERS: PCP Nurse Practitioner Family; Visit Provider Internal Medicine | DX: I48.0 Paroxysmal atrial fibrillation (principal); Z79.01 Long term (current) use of anticoagulants; Z51.81 Encounter for therapeutic drug level monitoring | CPT/HCPCS: 85610; 99211 ==

== ENCOUNTER 2024-05-26 08:10 | Outpatient (AMB) | payer OTHER, SELFPAY ==
--- NOTE | 2024-05-26 08:27 | MHC.OFFVISCO ---
Intake Intake Visit Reasons: Anticoagulation Allergies atorvastatin [Lipitor] Adverse Reaction (Intermediate, Verified 05/26/24 08:15) didn't tolerate rosuvastatin [Crestor] Adverse Reaction (Intermediate, Verified 05/26/24 08:15) didn't tolerate venlafaxine [From Effexor] Adverse Reaction (Intermediate, Verified 05/26/24 08:15) did not tolerate Medication List - Last Reconciled 05/26/24 by Shraddha Martinez, RN amlodipine 2.5 mg PO DAILY bisacodyl (Dulcolax (bisacodyl)) 20 mg (4 x 5 mg) PO ONCE 1 day blood-glucose meter (FreeStyle Lite Meter kit) As directed buspirone 20mg in am, 15mg in pm orally; Managed by psych 30 days coenzyme Q10 (CoQ-10) 100 mg PO DAILY evolocumab (Repatha SureClick) 140 mg subcut Q2W fluoxetine 20 mg PO DAILY FreeStyle Lite Strips (blood sugar diagnostic) Test blood sugar once a day NS gabapentin 600 mg (2 x 300 mg) PO BEDTIME 30 days lancets (FreeStyle Lancets) Test blood sugar twice a day levothyroxine 50 mcg PO DAILY lisinopril 10 mg PO DAILY metoprolol tartrate 75 mg (1.5 x 50 mg) PO BID 90 days niacin PO polyethylene glycol 3350 (Miralax) 238 grams PO ONCE [TUMERIC PO] warfarin 5 mg See Protocol PO DAILY Nursing Note INR: 1.5?out of therapeutic range of 2-3 Pt states he only took 10mg yesterday and not the usual 2.5mg He also had spinach yesterday Medications and supplements reviewed Patient status: well Medications or supplements: no changes Diet: usual diet for pt Denies any signs and symptoms of bleeding or clotting or unusual bruising Bleeding, bruising, clotting discussed Nutritional guidance given: to avoid greens X 2 days Dose: increase today's dose to 12.5mg (10mg) then 10mg X 6 days and 12.5mg X 1 day F/U INR Date : 4 weeks?? Patient verbalizing understanding of instructions given. T/C to Jose Walls's office to report critical value INR of 1.5. Spoke to Martha and INR with dosing plan reported. Anti-Coag Initial Assessment Social Hx Patient Tobacco Use Status: Former Tobacco user alcohol intake: former Alcohol intake frequency: former alcohol drinker Cardiovascular Hx: HTN, CAD, [place] and Arrhythmias Endocrine Hx: Thyroid Disease Musculoskeletal Hx: Arthritis Blood Disorder Hx: Hyperlipidemia GI Hx: Diverticulosis Neurological Hx: Migraines/Headaches Cancer HX: No Psych. Illness/Depression: No Coding Level of Care Code Est Patient Level 1 Diagnoses Current use of anticoagulant therapy Z79.01 Results AMB INR Fingerstick AMB INR Fingerstick 1.5 Last Edit by Shraddha Martinez RN on 05/26/24 08:23 interface delay Assessment & Plan Assessment & Plan (1) Current use of anticoagulant therapy: Code(s): Z79.01 - [facility] (current) use of anticoagulants Category: Medical
[2024-05-26 08:32] LABS: Prothrombin Time Whole Bld POC 18.3 sec (11.1-13.5); ~PT, ~INR - Anti Coag Clinic 1.5 (0.9-1.1)
== END 2024-05-26 08:38 | disposition home or self-care (01) ==
LOC: HO.ACS 08:10
PROVIDERS: PCP Nurse Practitioner Family; Visit Provider Internal Medicine
DX: Z79.01 Long term (current) use of anticoagulants (principal)

== ENCOUNTER → 2024-05-26 08:10 | Outpatient (BNVA) | payer OTHER, SELFPAY | PROVIDERS: PCP Nurse Practitioner Family; Visit Provider Internal Medicine | DX: I48.0 Paroxysmal atrial fibrillation (principal); Z79.01 Long term (current) use of anticoagulants; Z51.81 Encounter for therapeutic drug level monitoring | CPT/HCPCS: 85610; 99211 ==

== ENCOUNTER → 2024-06-12 13:13 | Outpatient (BNVA) | payer OTHER, SELFPAY | PROVIDERS: PCP Nurse Practitioner Family; Visit Provider Internal Medicine ==

== ENCOUNTER 2024-06-14 09:42 | Day surgery (SDC) | payer OTHER, SELFPAY ==
[2024-06-12 14:40] VITALS: BMI 34.3
--- NOTE | 2024-06-13 09:08 | HO.ANESPROP2 ---
Documented by User: Domitial Del Rosario NP 06/13/24 09:10 HPI - Anesthesia Eval Consult details Narrative: 58yo M for Colonoscopy Follows [facility] [place] Cardiology for CAD s/p CABG 2011, afib (warfarin) Stable, asymptomatic at yearly routine visit 12/2023 [facility] Active Problems Active Problems: All Active Problems Elevated fasting blood sugar (Acute) Palpitations (Acute) Anxiety (Acute) Neuropathy (Acute) Leukocytosis (Acute) Physical exam (Acute) Current use of anticoagulant therapy (Acute) Elevated liver enzymes (Acute) Chest discomfort (Acute) Tear of medial meniscus of right knee (Acute) Chronic knee pain (Acute) Right calf pain (Acute) Right knee pain (Acute) Screening PSA (prostate specific antigen) (Acute) Screening for colon cancer (Acute) Status post coronary artery bypass graft (Acute) Acquired hypothyroidism (Acute) Mixed hyperlipidemia (Acute) Essential hypertension (Acute) PAF (paroxysmal atrial fibrillation) (Acute) Atherosclerotic cardiovascular disease (Acute) Afib (Acute) Past Medical History Medical History (Updated 06/12/24 @ 14:41 by Liz Zarate RN) Fatty liver Plantar fasciitis Acquired hypothyroidism Radha syndrome Sleep apnea Mixed hyperlipidemia Essential hypertension PAF (paroxysmal atrial fibrillation) Atherosclerotic cardiovascular disease Afib Family History Family History Father Esophageal cancer Stomach cancer Mother Heart problem Brother No problems noted. Brother HTN (hypertension) Maternal Grandfather Myocardial infarction Maternal Uncle Heart problem Family history of problems with anesthesia: No Surgical History Surgical History (Updated 06/12/24 @ 14:34 by Liz Zarate RN) Hx of arthroscopic knee surgery History of colectomy History of esophagogastroduodenoscopy (EGD) Hx of colonoscopy Hx of CABG History of Problems with Anesthesia: No Social History Social History Housing: House Alcohol intake: former Patient Tobacco Use Status: Former Tobacco user e-Cigarette/Vaping Use: Never Used Second Hand Smoke Exposure: No Use of substances other than those prescribed or required for medical reasons: No Have you been hit, kicked, punched, or otherwise hurt by someone within the past year? 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 Current occupational exposures/hazards: Yes Cognitive needs: No Hearing needs: No Vision needs: No Meds Allergies Allergy/AdvReac Type Severity Reaction Status Date / Time atorvastatin [Lipitor] AdvReac Intermediate didn't Verified 05/26/24 08:15 tolerate rosuvastatin [Crestor] AdvReac Intermediate didn't Verified 05/26/24 08:15 tolerate venlafaxine [From Effexor] AdvReac Intermediate did not Verified 05/26/24 08:15 tolerate Home Medications ?Medication ?Instructions ?Recorded ?Confirmed ?Last Taken ?Type coenzyme Q10 100 mg capsule 100 mg PO DAILY 10/06/22 06/12/24 Unknown History (CoQ-10) niacin PO 10/06/22 05/26/24 Unknown History TUMERIC PO 01/12/23 05/26/24 Unknown History Exam Height,Weight and Vital Signs: Height 6 ft Weight 114.759 kg Narrative Narrative: EKG 12/2023 Details: EKG with sinus bradycardia, 57/Min; slight nonspecific ST-T changes inferior leads but otherwise unremarkable. Normal TX and corrected QT. Holter 04/2024 Total monitoring time 3 days. Underlying rhythm is sinus with an average rate of 58/Min. Rare supraventricular ectopy. 3 brief runs noted. Longest 14 beats. Rare ventricular ectopy. No significant pauses or high-grade AV blocks. Patient marker used in association with sinus rhythm. Rapid/fast heartbeat in patient diary correlates with sinus rhythm. ECHO 2022 Conclusions: - 1. Normal LV systolic function with LVEF of 60 65% 2. Normal cardiac valvular Doppler 3. Normal RV systolic pressure 4. Mildly dilated ascending aorta at 3.9 cm 5. No gross pericardial effusion NM cardiolite stress test 2022 Impression: 1. Normal myocardial perfusion 2. Gated LVEF is 57% 3. Transient ischemic dilatation not present but LV cavity is dilated Stress EKG is borderline positive for ischemia Assessment and Plan Assessment Anesthesia Assessment: Chart Reviewed Final Anesthetic Review Family History of Problems with Anesthesia: No History of Problems with Anesthesia: No Documented by User: Dominga Hdz MD 06/14/24 11:02 [facility] Past Medical History Medical History (Updated 06/12/24 @ 14:41 by Liz Zarate, RN) Fatty liver Plantar fasciitis Acquired hypothyroidism Radha syndrome Sleep apnea Mixed hyperlipidemia Essential hypertension PAF (paroxysmal atrial fibrillation) Atherosclerotic cardiovascular disease Afib Family History Family History Father Esophageal cancer Stomach cancer Mother Heart problem Brother No problems noted. Brother HTN (hypertension) Maternal Grandfather Myocardial infarction Maternal Uncle Heart problem Surgical History Surgical History (Updated 06/12/24 @ 14:34 by Liz Zarate RN) Hx of arthroscopic knee surgery History of colectomy History of esophagogastroduodenoscopy (EGD) Hx of colonoscopy Hx of CABG Social History Social History Housing: House Alcohol intake: former Patient Tobacco Use Status: Former Tobacco user e-Cigarette/Vaping Use: Never Used Second Hand Smoke Exposure: No Use of substances other than those prescribed or required for medical reasons: No Have you been hit, kicked, punched, or otherwise hurt by someone within the past year? 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 Current occupational exposures/hazards: Yes Cognitive needs: No Hearing needs: No Vision needs: No Meds Allergies Allergy/AdvReac Type Severity Reaction Status Date / Time atorvastatin [Lipitor] AdvReac Intermediate didn't Verified 05/26/24 08:15 tolerate rosuvastatin [Crestor] AdvReac Intermediate didn't Verified 05/26/24 08:15 tolerate venlafaxine [From Effexor] AdvReac Intermediate did not Verified 05/26/24 08:15 tolerate Home Medications ?Medication ?Instructions ?Recorded ?Confirmed ?Last Taken ?Type coenzyme Q10 100 mg capsule 100 mg PO DAILY 10/06/22 06/12/24 Unknown History (CoQ-10) niacin PO 10/06/22 05/26/24 Unknown History TUMERIC PO 01/12/23 05/26/24 Unknown History Exam Airway Mallampati Class: II TM Dist: >3cm Neck ROM: Full Heart: rrr Lungs: cta Assessment and Plan Assessment Anesthesia Assessment: Anesthesia Plan Discussed Final Anesthetic Review NPO: Yes ASA Class: II Final Preanesthetic Review: No Changes in Pt Med Stat, Meds/Allgs Chart Reviewed and Consent Obtained/Reviewed Patient Risk: Low Procedure Risk: Low Anesthetic Plan Anesthetic Plan: MAC: Disposition: Standard PACU
[2024-06-14 10:07] VITALS: BP 112/84; PULSE 57; RESP 16; TEMP 36.8; O2SAT 96; BMI 32.5
[2024-06-14] MEDS: Lactated Ringers 1,000 ML 100 ML IVCONT (10:20)
[2024-06-14 10:25] LABS: INTERNATIONAL NORM RATIO 1.1 (0.9-1.1); Prothrombin Time 12.3 SEC (10.9-12.4)
--- NOTE | 2024-06-14 10:46 | P.HPSUR_ITS ---
Pre-Procedural Eval Section A - 24 Hr Update-Section A only Date of Service: 06/14/24 Section B - Complete if H&P > 30 days Chief Complaint: Encounter for screening for malignant neoplasm of Relevant Family History (Specify if Yes): No Relevant Social History: None Present Medications: see Short Stay Collaborative assessment Medical History: Significant History (Fatty liver Plantar fasciitis Acquired h ypothyroidism Radha syndrome Sleep apnea Mixed hyperlipidemia Essential hypertension PAF (paroxysmal atrial fibrillation) Atherosclerotic cardiovascular disease Afib) History of Previous Operations: Relevant previous surgery/procedure and date(s) (Hx of arthroscopic knee surgery History of colectomy History of esophagogastroduodenoscopy (EGD) Hx of colonoscopy Hx of CABG) Allergies: Allergies Allergy/AdvReac Type Severity Reaction Status Date / Time atorvastatin [Lipitor] AdvReac Intermediate didn't Verified 05/26/24 08:15 tolerate rosuvastatin [Crestor] AdvReac Intermediate didn't Verified 05/26/24 08:15 tolerate venlafaxine [From Effexor] AdvReac Intermediate did not Verified 05/26/24 08:15 tolerate Review of Systems Sugical H&P ROS: Negative: Constitution, Cardiovascular, Respiratory, Neurological, Psychiatric, Hem-Onc, Allergic/Immunologic, Gastrointestinal, Genitourinary, Musculoskeletal, Integumentary, Endocrine and Eyes/Ears/Nose/Throat Exam Surgical H&P Exam: Normal: HEENT, Normal: Heart, Normal: Lungs, Normal: Extremities, Normal: Abdomen, Normal: Skin and Normal: Neurological Plan Diagnosis/Plan: Unchanged I have reviewed the history and physical and performed a pertinent physical examination on my patient. No changes have occurred unless specified. Time Spent With Patient Time: Total time managing care of this patient today ____ minutes.
--- NOTE | 2024-06-14 11:25 | HO.ANESPROP2 ---
[facility] Active Problems Active Problems: All Active Problems (Updated 06/12/24 @ 14:41 by Liz Zarate RN) Elevated fasting blood sugar (Acute) Palpitations (Acute) Anxiety (Acute) Neuropathy (Acute) Leukocytosis (Acute) Physical exam (Acute) Current use of anticoagulant therapy (Acute) Elevated liver enzymes (Acute) Chest discomfort (Acute) Tear of medial meniscus of right knee (Acute) Chronic knee pain (Acute) Right calf pain (Acute) Right knee pain (Acute) Screening PSA (prostate specific antigen) (Acute) Screening for colon cancer (Acute) Status post coronary artery bypass graft (Acute) Acquired hypothyroidism (Acute) Mixed hyperlipidemia (Acute) Essential hypertension (Acute) PAF (paroxysmal atrial fibrillation) (Acute) Atherosclerotic cardiovascular disease (Acute) Afib (Acute) Past Medical History Medical History (Updated 06/12/24 @ 14:41 by Liz Zarate RN) Fatty liver Plantar fasciitis Acquired hypothyroidism Radha syndrome Sleep apnea Mixed hyperlipidemia Essential hypertension PAF (paroxysmal atrial fibrillation) Atherosclerotic cardiovascular disease Afib Family History Family History Father Esophageal cancer Stomach cancer Mother Heart problem Brother No problems noted. Brother HTN (hypertension) Maternal Grandfather Myocardial infarction Maternal Uncle Heart problem Family history of problems with anesthesia: No Surgical History Surgical History (Updated 06/12/24 @ 14:34 by Liz Zarate RN) Hx of arthroscopic knee surgery History of colectomy History of esophagogastroduodenoscopy (EGD) Hx of colonoscopy Hx of CABG History of Problems with Anesthesia: No Social History Social History Housing: House Alcohol intake: former Patient Tobacco Use Status: Former Tobacco user e-Cigarette/Vaping Use: Never Used Second Hand Smoke Exposure: No Use of substances other than those prescribed or required for medical reasons: No Have you been hit, kicked, punched, or otherwise hurt by someone within the past year? 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 Current occupational exposures/hazards: Yes Cognitive needs: No Hearing needs: No Vision needs: No Meds Allergies Allergy/AdvReac Type Severity Reaction Status Date / Time atorvastatin [Lipitor] AdvReac Intermediate didn't Verified 05/26/24 08:15 tolerate rosuvastatin [Crestor] AdvReac Intermediate didn't Verified 05/26/24 08:15 tolerate venlafaxine [From Effexor] AdvReac Intermediate did not Verified 05/26/24 08:15 tolerate Active Medications: Current Medications Lactated Ringer's (Lr) 1,000 mls @ 100 mls/hr IVCONT .Q10H NAYA Last Admin: 06/14/24 10:20 Dose: 100 mls/hr Naloxone HCl (Naloxone Hcl 0.4 Mg/Ml Vial) 0.04 mg IVPUSH Q5M PRN PRN Reason: Excessive sedation or RR < 8 Home Medications ?Medication ?Instructions ?Recorded ?Confirmed ?Last Taken ?Type coenzyme Q10 100 mg capsule 100 mg PO DAILY 10/06/22 06/12/24 Unknown History (CoQ-10) niacin PO 10/06/22 05/26/24 Unknown History TUMERIC PO 01/12/23 05/26/24 Unknown History Exam Height,Weight and Vital Signs: Height 6 ft Weight 108.862 kg Last Vital Signs Temp 98.2 F 06/14/24 10:07 Pulse 57 06/14/24 10:07 Resp 16 06/14/24 10:07 BP 112/84 06/14/24 10:07 Pulse Ox 96 06/14/24 10:07 O2 Del Method Room Air 06/14/24 10:07 Pertinent Lab Results Pertinent Lab Results: Laboratory Tests 06/14/24 10:11 PT 12.3 D INR 1.1 Airway Mallampati Class: II TM Dist: >3cm Neck ROM: Full Heart: rrr Lungs: cta Assessment and Plan Assessment Anesthesia Assessment: Anesthesia Plan Discussed and Chart Reviewed Final Anesthetic Review Family History of Problems with Anesthesia: No History of Problems with Anesthesia: No NPO: Yes ASA Class: III Final Preanesthetic Review: No Changes in Pt Med Stat, Meds/Allgs Chart Reviewed and Consent Obtained/Reviewed Patient Risk: Low Procedure Risk: Low Anesthetic Plan Anesthetic Plan: MAC: Disposition: Standard PACU
--- NOTE | 2024-06-14 11:42 | P.OPN-COLO_ITS ---
Colonoscopy Operative Note Operative Note Date of Service: 06/14/24 Narrative: Operative Information Procedure Description: Colonoscopy Indication: screening Anesthesia: MAC COLONOSCOPY Instrument: Olympus variable stiffness pediatric scope 190L Colonoscopy Monitoring: Vital signs and clinical assessment, continuous EKG monitoring, Pulse oximetry, Carbon Dioxide monitoring and blood pressure monitoring were done throughout the procedure. Colon withdrawal time was 10 minutes. Procedure: The patient was placed in the left lateral decubitis position and pre-procedure medications were administered. After a digital rectal examination of the ano-rectum, the video colonoscope was inserted into the rectum and advanced through the colon to the cecum/TI. The colonoscope was slowly withdrawn in a retrograde panoramic fashion and the colon mucosa was carefully examined including a retroflexed view of the rectum. Findings and interventions are described below. Procedure Difficulty: easy Findings: Terminal Ileum-normal Cecum:normal Ascending Colon: 6-8 mm sessile polyp removed with cold snare Transverse Colon -normal Descending Colon:normal Sigmoid Colon: mild diverticulosis, Rectum: Retroflexion with small internal hemorrhoids seen, grade I, 6-8 mm sessile polyp removed with cold snare Anorectum - normal Intervention: cold snare Colon preparation: [place] Bowel Preparation Scale Right colon; 2 Transverse colon: 2 Left colon; 2 (0 = Unprepared colon segment with mucosa not seen due to solid stool that cannot be cleared. 1 = Portion of mucosa of the colon segment seen, but other areas of the colon segment not well seen due to staining, residual stool and/or opaque liquid. 2 = Minor amount of residual staining, small fragments of stool and/or opaque liquid, but mucosa of colon segment seen well. 3 = Entire mucosa of colon segment seen well with no residual staining, small fragments of stool or opaque liquid) Impression and Post Procedure Diagnosis: diverticulosis colon polyps internal hemorrhoids Plan: High fiber diet leaflet Avoid straining at stool, epsom salts and sitz bath, anusol supps or cream Repeat Colonoscopy in 5-7 years if adenomatous polyps, 10 yrs if hyperplastic or earlier if clinically indicated Above findings were reviewed with the patient and relevant handouts were provided if indicated.
[2024-06-14 11:49] VITALS: BP 90/60; PULSE 54; RESP 16; TEMP 36.6; O2SAT 95
[2024-06-14 11:50] VITALS: BP 95/64; PULSE 51; RESP 16; O2SAT 95
[2024-06-14 12:03] VITALS: BP 113/75; PULSE 52; RESP 16; O2SAT 96
[2024-06-14 12:16] VITALS: BP 114/80; PULSE 58; RESP 16; TEMP 36.6; O2SAT 96
== END 2024-06-14 12:39 | disposition home or self-care (01) ==
PROVIDERS: Nurse Practitioner; PCP Nurse Practitioner Family; Visit Provider Internal Medicine Gastroenterology
PROC: 0DJD8ZZ Inspection of Lower Intestinal Tract, Via Natural or Artificial Opening Endoscopic (ICD-10-PCS; CPT 45378; principal; 2024-06-14 11:50)
DX: Z12.11 Encounter for screening for malignant neoplasm of colon (principal); D12.2 Benign neoplasm of ascending colon; K62.1 Rectal polyp; K57.30 Diverticulosis of large intestine without perforation or abscess without bleeding; K64.0 First degree hemorrhoids; K76.0 Fatty (change of) liver, not elsewhere classified; I24.1 Dressler's syndrome; I10 Essential (primary) hypertension; E78.2 Mixed hyperlipidemia; I25.10 Atherosclerotic heart disease of native coronary artery without angina pectoris; Z95.1 Presence of aortocoronary bypass graft; I48.0 Paroxysmal atrial fibrillation; E03.9 Hypothyroidism, unspecified; G47.33 Obstructive sleep apnea (adult) (pediatric); Z90.49 Acquired absence of other specified parts of digestive tract; Z88.8 Allergy status to other drugs, medicaments and biological substances; Z98.890 Other specified postprocedural states; Z87.891 Personal history of nicotine dependence; Z79.899 Other long term (current) drug therapy
CPT/HCPCS: 45385; 36415; 85610; 88305; 88341; 88342; J2003; J2704

== ENCOUNTER → 2024-06-14 09:42 | Outpatient (BNV) | payer OTHER, SELFPAY | PROVIDERS: PCP Nurse Practitioner Family; Visit Provider Internal Medicine Gastroenterology | DX: Z12.11 Encounter for screening for malignant neoplasm of colon (principal); D12.2 Benign neoplasm of ascending colon; K57.30 Diverticulosis of large intestine without perforation or abscess without bleeding; K64.0 First degree hemorrhoids | CPT/HCPCS: 45385 ==

== ENCOUNTER 2024-06-19 08:02 | Outpatient (AMB) | payer OTHER, SELFPAY ==
[2024-06-19 08:09] LABS: Prothrombin Time Whole Bld POC 18.4 sec (11.1-13.5); ~PT, ~INR - Anti Coag Clinic 1.5 (0.9-1.1)
--- NOTE | 2024-06-19 08:17 | MHC.OFFVISCO ---
Intake Intake Visit Reasons: Anticoagulation Allergies atorvastatin [Lipitor] Adverse Reaction (Intermediate, Verified 05/26/24 08:15) didn't tolerate rosuvastatin [Crestor] Adverse Reaction (Intermediate, Verified 05/26/24 08:15) didn't tolerate venlafaxine [From Effexor] Adverse Reaction (Intermediate, Verified 05/26/24 08:15) did not tolerate Medication List - Last Reconciled 06/19/24 by Mago Schmidt RN amlodipine 2.5 mg PO DAILY bisacodyl (Dulcolax (bisacodyl)) 20 mg (4 x 5 mg) PO ONCE 1 day bisacodyl (Dulcolax (bisacodyl)) 20 mg (4 x 5 mg) PO ONCE 1 day blood-glucose meter (FreeStyle Lite Meter kit) As directed buspirone 20mg in am, 15mg in pm orally; Managed by psych 30 days coenzyme Q10 (CoQ-10) 100 mg PO DAILY evolocumab (Repatha SureClick) 140 mg subcut Q2W fluoxetine 20 mg PO DAILY FreeStyle Lite Strips (blood sugar diagnostic) Test blood sugar once a day NS gabapentin 600 mg (2 x 300 mg) PO BEDTIME 30 days lancets (FreeStyle Lancets) Test blood sugar twice a day levothyroxine 50 mcg PO DAILY lisinopril 10 mg PO DAILY metoprolol tartrate 75 mg (1.5 x 50 mg) PO BID 90 days niacin PO polyethylene glycol 3350 (Miralax) 238 grams PO ONCE 1 day [TUMERIC PO] warfarin 5 mg See Protocol PO DAILY Nursing Note INR 1.5? out of therapeutic range -S/P COLONOSCOPY/PREVIOUS INR LOW PRIOR WARFARIN HOLD FOR THE PROCEDURE Medications and supplements reviewed Patient status: S/P COLONOSCOPY 06/14/24 LAST WEDNESDAY- 2 SMALL POLYPS REMOVED - NO COMPLICATIONS, NORMAL BMS, Medications or supplements: NO CHANGES Diet: GOOD Denies any signs and symptoms of bleeding or clotting or unusual bruising Bleeding, bruising, clotting discussed Nutritional guidance given: AVOID ALL GREENS X 3 DAYS Dose: 12.5MG TODAY AND THE ON USUAL DAY WED 10MG ALL OTHER DAYS F/U INR Date: 06/23/24Wednesday ?? Patient verbalizing understanding of instructions given WITH READ BACK. Anti-Coag Initial Assessment Social Hx Patient Tobacco Use Status: Former Tobacco user alcohol intake: former Alcohol intake frequency: former alcohol drinker Cardiovascular Hx: HTN, CAD, CA and Arrhythmias Endocrine Hx: Thyroid Disease Musculoskeletal Hx: Arthritis Blood Disorder Hx: Hyperlipidemia GI Hx: Diverticulosis Neurological Hx: Migraines/Headaches Cancer HX: No Psych. Illness/Depression: No Questionnaires HAS-BLED Does the patient had uncontrolled Hypertension?: No Does the patient have renal disease?: No Does the patient have liver disease?: No Does the patient have a history of stroke?: No Has the patient had major bleeding or predisposition to bleeding?: No Does the patient have labile INRs?: Yes Is the patient over 65 years of age?: No Is the patient on medications that gives them a predisposition to bleeding?: Yes Does the patient use alcohol?: No HAS-BLED Score: 2 CHADSVASC Age: <65 Gender: Male Does the patient have a history of CHF?: No Does the patient have a history of Hypertension?: Yes Does the patient have a history of Stroke/TIA/Thromboembolism?: No Does the patient have a history of Vascular Disease (prior CA, PAD or aortic plaque)?: Yes Does the patient have a history of Diabetes?: No CHADS VACS Score: 2 Juanis Prediction Score Rsk VTE Active Cancer: No Previous VTE, excluding superficial vein thrombosis: No Reduced mobility: No Already known Thrombophilic Condition: No With-in last month Trauma and/or Surgery: Yes (COLONOSCOPY - WAFRARIN HOLD ) Elderly 70 year or older: No Heart and/or Respiratory Failure: No Acute Myocardial infarction and/or Ischemic Stroke: Yes (2011) Acute Infection and/or Rheumatologic Disorder: No Obesity (BMI 30 or greater): Yes Ongoing Hormonal Treatment: No Score: 4 Juanis Score less than 4; Low Risk of VTE Juanis Score 4 or greater; High Risk of VTE Coding Level of Care Code Est Patient Level 1 Diagnoses Current use of anticoagulant therapy Z79.01 Results AMB INR Fingerstick AMB INR Fingerstick 1.5 Last Edit by Mago Schmidt RN on 06/19/24 08:10 manual entry Assessment & Plan Assessment & Plan (1) Current use of anticoagulant therapy: Code(s): Z79.01 - penitentiary (current) use of anticoagulants Category: Medical
== END 2024-06-19 09:10 | disposition home or self-care (01) ==
LOC: HO.ACS 08:02
PROVIDERS: PCP Nurse Practitioner Family; Visit Provider Internal Medicine
DX: Z79.01 Long term (current) use of anticoagulants (principal)

== ENCOUNTER → 2024-06-19 08:02 | Outpatient (BNVA) | payer OTHER, SELFPAY | PROVIDERS: PCP Nurse Practitioner Family; Visit Provider Internal Medicine | DX: I48.0 Paroxysmal atrial fibrillation (principal); Z79.01 Long term (current) use of anticoagulants; Z51.81 Encounter for therapeutic drug level monitoring | CPT/HCPCS: 85610; 99211 ==

== ENCOUNTER → 2024-06-23 08:09 | Outpatient (AMB) | payer OTHER, SELFPAY ==
[2024-06-23 08:48] LABS: Prothrombin Time Whole Bld POC 24.2 sec (11.1-13.5)
== END | disposition home or self-care (01) ==
PROVIDERS: PCP Nurse Practitioner Family; Visit Provider Internal Medicine

== ENCOUNTER → 2024-06-23 08:09 | Outpatient (BNVA) | payer OTHER, SELFPAY | PROVIDERS: PCP Nurse Practitioner Family; Visit Provider Internal Medicine | DX: I48.0 Paroxysmal atrial fibrillation (principal); Z79.01 Long term (current) use of anticoagulants; Z51.81 Encounter for therapeutic drug level monitoring | CPT/HCPCS: 85610; 99211 ==

== ENCOUNTER 2024-07-04 07:23 | Outpatient (AMB) | payer OTHER, SELFPAY ==
--- NOTE | 2024-07-04 07:37 | MHC.PC.OV ---
Vital Signs 07/04/24 07:41 Height 6 ft Weight 244 lb BMI 33.1 BP 110/70 Blood Pressure Location Rt brachial Position Sitting Respiration 16 Pulse 60 Pulse Source Pulse Oximeter Temp 98.2 F Temp Source Oral Pulse Oximetry (%) 96 Intake Visit Reasons: Annual PE Intake Note: Pt is here today for his PE Allergies atorvastatin [Lipitor] Adverse Reaction (Intermediate, Verified 07/04/24 07:37) didn't tolerate rosuvastatin [Crestor] Adverse Reaction (Intermediate, Verified 07/04/24 07:37) didn't tolerate venlafaxine [From Effexor] Adverse Reaction (Intermediate, Verified 07/04/24 07:37) did not tolerate Medication List - Last Reconciled 07/04/24 by MONET Gómez- amlodipine 2.5 mg PO DAILY bisacodyl (Dulcolax (bisacodyl)) 20 mg (4 x 5 mg) PO ONCE 1 day bisacodyl (Dulcolax (bisacodyl)) 20 mg (4 x 5 mg) PO ONCE 1 day blood-glucose meter (FreeStyle Lite Meter kit) As directed buspirone 20mg in am, 20mg in pm orally; Managed by psych coenzyme Q10 (CoQ-10) 100 mg PO DAILY evolocumab (Repatha SureClick) 140 mg subcut Q2W fluoxetine 20 mg PO DAILY FreeStyle Lite Strips (blood sugar diagnostic) Test blood sugar once a day NS gabapentin 600 mg (2 x 300 mg) PO BEDTIME 30 days lancets (FreeStyle Lancets) Test blood sugar twice a day levothyroxine 50 mcg PO DAILY lisinopril 10 mg PO DAILY metoprolol tartrate 75 mg (1.5 x 50 mg) PO BID 90 days niacin PO [TUMERIC PO] warfarin 5 mg See Protocol PO DAILY Tobacco use date assessed: 07/04/24 Dental Screening Dental Screen Date: 07/04/24 Did you have a dental visit in the last 12 months?: Yes Did you have a dental problem in the last 6 months where you did not have access to dental care?: No Was dental information given to patient?: Patient has dentist HPI Annual PE HPI Details History of Present Illness The patient is a 59-year-old male presenting for a physical exam and evaluation of chest discomfort. He reports ongoing chest discomfort which has been present for an unspecified duration. Previous evaluations by a practicing dermatologist/ER have ruled out cardiac involvement in the chest discomfort. The patient continues to follow up with a practicing dermatologist annually. The discomfort is noted at the sternal region and can be exacerbated by moving the upper torso side to side. There is no report of typical cardiac symptoms such as shortness of breath. The patient manages anxiety and depression with the aid of a psych provider, and his condition is currently stable. He denies any suicidal or homicidal ideation. Health Maintenance - Regular annual cardiology follow-up. - Ongoing management of anxiety and depression. -colon screen is up to date -refused URSULA, PSA ordered Social History - NOT DISCUSSED Review of Systems - Cardiovascular: Denies shortness of breath. - Gastrointestinal: Denies diarrhea, constipation, and abdominal pain. - Genitourinary: Denies urinary issues. - General: Denies fevers and chills. Physical Exam General: Cooperative, healthy appearing, comfortable, no acute distress and well developed Orientation: Patient oriented x3 Limitations: No limitations Head: Normal to inspection Ears: Hearing grossly normal bilaterally Nose: Normal external nose present Face and sinus: Normal facial exam Eyes: Appearance normal, both eyes and all related structures Neck: Normal visual inspection and Yes full ROM Respiratory: Normal respiratory effort and able to speak in complete sentences. Clear to auscultation bilaterally Cardiovascular: Regular rate and rhythm. Normal S1 and S2 GI: Normal to inspection. Soft to palpation and nontender Skin: No rashes or lesions noted Neuro: Patient oriented x3 Extremities: Normal to inspection Results - NOT DISCUSSED Plan - Perform an electrocardiogram EKG) to further evaluate chest discomfort considering cardiac history. - Continue current management with the patient's psych provider for anxiety and depression. - Encourage follow-up with practicing dermatologist annually. Patient was informed and verbally consented to the use of an ambient scribe for clinic note documentation during this visit. Discussion Notes I discussed with the patient the plan to obtain an EKG today as part of evaluating his chest discomfort, taking into account his cardiac history. I explained that previous evaluations had ruled out cardiac involvement, yet precautionary monitoring through cardiology follow-up remains important. I emphasized the importance of continuing mental health care to manage anxiety and depression effectively and made sure the patient understands the rationale behind ongoing follow-up with his practicing dermatologist and psych provider. Patient Instructions - Proceed with an EKG as scheduled. - Continue regular follow-up with the practicing dermatologist annually. - Maintain ongoing treatment with your psych provider for anxiety and depression. - Report any new or worsening symptoms immediately, particularly chest pain, shortness of breath, or any mental health concerns. [facility] Medical History Fatty liver Plantar fasciitis Acquired hypothyroidism Radha syndrome Sleep apnea Mixed hyperlipidemia Essential hypertension PAF (paroxysmal atrial fibrillation) Atherosclerotic cardiovascular disease Afib Surgical History Hx of arthroscopic knee surgery History of colectomy History of esophagogastroduodenoscopy (EGD) Hx of colonoscopy Hx of CABG Family History Father Esophageal cancer Stomach cancer Mother Heart problem Brother No problems noted. 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 04073 - PHQ-9 Billing: Patient declined-do not bill Source: Developed by Drs. Mohamud Queen, Ismael Erazo and colleagues, with an educational sameera from [employer]. Thrive Questionnaire Date Thrive assessed: 07/04/24 PK-7 AMB Questionnaire PK-7 Date PK - 7 assessed: 08/10/23 Source: Developed by Drs. Mohamud Queen, Ismael Erazo and colleagues, with an educational sameera from [employer]. Physical exam (Primary Care) Vital Signs: Last Vital Signs Temp 98.2 F 07/04/24 07:41 Pulse 60 07/04/24 07:41 Resp 16 07/04/24 07:41 BP 110/70 07/04/24 07:41 Pulse Ox 96 07/04/24 07:41 BMI result Body Mass Index 33.1 Tobacco/Smoking Status: Tobacco use Status Tobacco use date assessed 07/04/24 07/04/24 07:38 Patient Tobacco Use Status Former Tobacco user 07/04/24 07:38 e-Cigarette/Vaping Use Never Used 07/04/24 07:38 Thrive Assessment: Date of Thrive Assessment Date Thrive assessed 07/04/24 07/04/24 07:38 Coding Level of Care Code Est Pt Prev Care 40-64y(61682) Diagnoses Physical exam Z00.00 Screening PSA (prostate specific antigen) Z12.5 Chest discomfort R07.89 Assessment & Plan Assessment & Plan (1) Physical exam: Code(s): Z00.00 - Encounter for general adult medical examination without abnormal findings Category: Medical (2) Screening PSA (prostate specific antigen): Code(s): Z12.5 - Encounter for screening for malignant neoplasm of prostate Category: Medical (3) Chest discomfort: Code(s): R07.89 - Other chest pain Category: Medical Plan . Orders: Orders Comprehensive [place]. Panel Fast Today Z00.00 - Encounter for general adult medical examination without abnormal findings Lipid Panel Today Z00.00 - Encounter for general adult medical examination without abnormal findings AMB EKG-In Office Today R07.89 - Other chest pain Complete Blood Count Auto Diff Today Z00.00 - Encounter for general adult medical examination without abnormal findings TSH reflex Free T4 Today Z00.00 - Encounter for general adult medical examination without abnormal findings UA CC w/rflx Micro + Cult Today Z00.00 - Encounter for general adult medical examination without abnormal findings Prostate Specific Antigen Scr Today Z12.5 - Encounter for screening for malignant neoplasm of prostate Medications: Changed From buspirone 20mg in am, 15mg in pm orally; Managed by psych 30 days 60 tabs 0RF To buspirone 20mg in am, 20mg in pm orally; Managed by psych
[2024-07-04 07:41] VITALS: BP 110/70; PULSE 60; RESP 16; TEMP 36.8; O2SAT 96; BMI 33.1
== END 2024-07-04 08:30 | disposition home or self-care (01) ==
PROVIDERS: PCP Nurse Practitioner Family; Visit Provider Nurse Practitioner Family
DX: Z00.00 Encounter for general adult medical examination without abnormal findings (principal); Z12.5 Encounter for screening for malignant neoplasm of prostate; R07.89 Other chest pain

== ENCOUNTER → 2024-07-04 07:23 | Outpatient (BNVA) | payer OTHER, SELFPAY | PROVIDERS: PCP Nurse Practitioner Family; Visit Provider Nurse Practitioner Family | DX: Z00.01 Encounter for general adult medical examination with abnormal findings (principal); R07.89 Other chest pain; E78.5 Hyperlipidemia, unspecified; Z87.891 Personal history of nicotine dependence | CPT/HCPCS: 99396 ==

== ENCOUNTER 2024-07-07 08:00 | Outpatient (AMB) | payer OTHER, SELFPAY ==
[2024-07-07 08:10] LABS: Prothrombin Time Whole Bld POC 32.8 sec (11.1-13.5); ~PT, ~INR - Anti Coag Clinic 2.7 (0.9-1.1)
--- NOTE | 2024-07-07 08:14 | MHC.OFFVISCO ---
Intake Intake Visit Reasons: Anticoagulation Allergies atorvastatin [Lipitor] Adverse Reaction (Intermediate, Verified 07/07/24 08:04) didn't tolerate rosuvastatin [Crestor] Adverse Reaction (Intermediate, Verified 07/07/24 08:04) didn't tolerate venlafaxine [From Effexor] Adverse Reaction (Intermediate, Verified 07/07/24 08:04) did not tolerate Medication List - Last Reconciled 07/07/24 by Mago Schmidt RN amlodipine 2.5 mg PO DAILY bisacodyl (Dulcolax (bisacodyl)) 20 mg (4 x 5 mg) PO ONCE 1 day bisacodyl (Dulcolax (bisacodyl)) 20 mg (4 x 5 mg) PO ONCE 1 day blood-glucose meter (FreeStyle Lite Meter kit) As directed buspirone 20mg in am, 20mg in pm orally; Managed by psych coenzyme Q10 (CoQ-10) 100 mg PO DAILY evolocumab (Repatha SureClick) 140 mg subcut Q2W fluoxetine 20 mg PO DAILY FreeStyle Lite Strips (blood sugar diagnostic) Test blood sugar once a day NS gabapentin 600 mg (2 x 300 mg) PO BEDTIME 30 days lancets (FreeStyle Lancets) Test blood sugar twice a day levothyroxine 50 mcg PO DAILY lisinopril 10 mg PO DAILY metoprolol tartrate 75 mg (1.5 x 50 mg) PO BID 90 days niacin PO [TUMERIC PO] warfarin 5 mg See Protocol PO DAILY Nursing Note INR: 2.7 in therapeutic range- s/p colonoscopy 06/14 - INR can run lower several weeks post Medications and supplements reviewed No changes in health, diet, medications, or supplements, Denies any signs and symptoms of bleeding or bruising or clotting. Bleeding, bruising, clotting discussed Nutritional guidance given Dose: resume usual dose now several weeks post colonooscpy F/U INR: 1 month Patient verbalizes understanding of instructions given Anti-Coag Initial Assessment Social Hx Patient Tobacco Use Status: Former Tobacco user alcohol intake: former Alcohol intake frequency: former alcohol drinker Cardiovascular Hx: HTN, CAD, VT and Arrhythmias Endocrine Hx: Thyroid Disease Musculoskeletal Hx: Arthritis Blood Disorder Hx: Hyperlipidemia GI Hx: Diverticulosis Neurological Hx: Migraines/Headaches Cancer HX: No Psych. Illness/Depression: No Coding Level of Care Code Est Patient Level 1 Diagnoses Current use of anticoagulant therapy Z79.01 Results AMB INR Fingerstick AMB INR Fingerstick 2.7 Last Edit by Mago Schmidt RN on 07/07/24 08:12 manual entry Assessment & Plan Assessment & Plan (1) Current use of anticoagulant therapy: Code(s): Z79.01 - intermediate (current) use of anticoagulants Category: Medical
== END 2024-07-07 08:17 | disposition home or self-care (01) ==
LOC: HO.ACS 08:00
PROVIDERS: PCP Nurse Practitioner Family; Visit Provider Internal Medicine
DX: Z79.01 Long term (current) use of anticoagulants (principal)

== ENCOUNTER → 2024-07-07 08:00 | Outpatient (BNVA) | payer OTHER, SELFPAY | PROVIDERS: PCP Nurse Practitioner Family; Visit Provider Internal Medicine | DX: I48.0 Paroxysmal atrial fibrillation (principal); Z79.01 Long term (current) use of anticoagulants; Z51.81 Encounter for therapeutic drug level monitoring | CPT/HCPCS: 85610; 99211 ==

== ENCOUNTER 2024-08-04 08:02 | Outpatient (AMB) | payer OTHER, SELFPAY ==
[2024-08-04 08:09] LABS: ~PT, ~INR - Anti Coag Clinic 3.4 (0.9-1.1)
--- NOTE | 2024-08-04 08:13 | MHC.OFFVISCO ---
Intake Intake Visit Reasons: Anticoagulation Allergies atorvastatin [Lipitor] Adverse Reaction (Intermediate, Verified 08/04/24 08:03) didn't tolerate rosuvastatin [Crestor] Adverse Reaction (Intermediate, Verified 08/04/24 08:03) didn't tolerate venlafaxine [From Effexor] Adverse Reaction (Intermediate, Verified 08/04/24 08:03) did not tolerate Medication List - Last Reconciled 08/04/24 by Shraddha Martinez, RN amlodipine 2.5 mg PO DAILY bisacodyl (Dulcolax (bisacodyl)) 20 mg (4 x 5 mg) PO ONCE 1 day bisacodyl (Dulcolax (bisacodyl)) 20 mg (4 x 5 mg) PO ONCE 1 day blood-glucose meter (FreeStyle Lite Meter kit) As directed buspirone 20mg in am, 20mg in pm orally; Managed by psych coenzyme Q10 (CoQ-10) 100 mg PO DAILY evolocumab (Repatha SureClick) 140 mg subcut Q2W 12 weeks fluoxetine 20 mg PO DAILY FreeStyle Lite Strips (blood sugar diagnostic) Test blood sugar once a day NS gabapentin 600 mg (2 x 300 mg) PO BEDTIME 30 days lancets (FreeStyle Lancets) Test blood sugar twice a day levothyroxine 50 mcg PO DAILY lisinopril 10 mg PO DAILY metoprolol tartrate 75 mg (1.5 x 50 mg) PO BID 90 days niacin PO [TUMERIC PO] warfarin 5 mg See Protocol PO DAILY Nursing Note INR: 3.4?out of therapeutic range of 2-3 Medications and supplements reviewed Patient status: well Medications or supplements: no changes Diet: usual diet for pt Denies any signs and symptoms of bleeding or clotting or unusual bruising Bleeding, bruising, clotting discussed Nutritional guidance given: to have a serving of greens today Dose: decrease today's dose to 7.5mg (10mg) then usual dose of 10mg X 6 days and 12.5mg X 1 day (Wed) F/U INR Date: 4 weeks?? Patient verbalizing understanding of instructions given. Anti-Coag Initial Assessment Social Hx Patient Tobacco Use Status: Former Tobacco user alcohol intake: former Alcohol intake frequency: former alcohol drinker Cardiovascular Hx: HTN, CAD, RI and Arrhythmias Endocrine Hx: Thyroid Disease Musculoskeletal Hx: Arthritis Blood Disorder Hx: Hyperlipidemia GI Hx: Diverticulosis Neurological Hx: Migraines/Headaches Cancer HX: No Psych. Illness/Depression: No Coding Level of Care Code Est Patient Level 1 Diagnoses Current use of anticoagulant therapy Z79.01 Assessment & Plan Assessment & Plan (1) Current use of anticoagulant therapy: Code(s): Z79.01 - intermediate (current) use of anticoagulants Category: Medical
== END 2024-08-04 08:29 | disposition home or self-care (01) ==
LOC: HO.ACS 08:03
PROVIDERS: PCP Nurse Practitioner Family; Visit Provider Internal Medicine Medical Oncology
DX: Z79.01 Long term (current) use of anticoagulants (principal)

== ENCOUNTER → 2024-08-04 08:02 | Outpatient (BNVA) | payer OTHER, SELFPAY | PROVIDERS: PCP Nurse Practitioner Family; Visit Provider Internal Medicine Medical Oncology | DX: I48.0 Paroxysmal atrial fibrillation (principal); Z79.01 Long term (current) use of anticoagulants; Z51.81 Encounter for therapeutic drug level monitoring | CPT/HCPCS: 85610; 99211 ==

== ENCOUNTER 2024-09-01 08:00 | Outpatient (AMB) | payer OTHER, SELFPAY ==
[2024-09-01 08:10] LABS: Prothrombin Time Whole Bld POC 36.3 sec (11.1-13.5)
--- NOTE | 2024-09-01 08:16 | MHC.OFFVISCO ---
Intake Intake Visit Reasons: Anticoagulation Allergies atorvastatin [Lipitor] Adverse Reaction (Intermediate, Verified 09/01/24 08:02) didn't tolerate rosuvastatin [Crestor] Adverse Reaction (Intermediate, Verified 09/01/24 08:02) didn't tolerate venlafaxine [From Effexor] Adverse Reaction (Intermediate, Verified 09/01/24 08:02) did not tolerate Medication List - Last Reconciled 09/01/24 by Mago Schmidt RN amlodipine 2.5 mg PO DAILY bisacodyl (Dulcolax (bisacodyl)) 20 mg (4 x 5 mg) PO ONCE 1 day blood-glucose meter (FreeStyle Lite Meter kit) As directed buspirone 20mg in am, 20mg in pm orally; Managed by psych coenzyme Q10 (CoQ-10) 100 mg PO DAILY evolocumab (Repatha SureClick) 140 mg subcut Q2W 12 weeks fluoxetine 20 mg PO DAILY FreeStyle Lite Strips (blood sugar diagnostic) Test blood sugar once a day NS gabapentin 600 mg (2 x 300 mg) PO BEDTIME 30 days lancets (FreeStyle Lancets) Test blood sugar twice a day levothyroxine 50 mcg PO DAILY lisinopril 10 mg PO DAILY metoprolol tartrate 75 mg (1.5 x 50 mg) PO BID 90 days niacin PO [TUMERIC PO] warfarin 5 mg See Protocol PO DAILY Nursing Note INR: 3.0 in therapeutic range Medications and supplements reviewed No changes in health, diet, medications, or supplements, Denies any signs and symptoms of bleeding or bruising or clotting. Bleeding, bruising, clotting discussed Nutritional guidance given Dose: 12.5MG X1DAY/ 10MG X 6 DAYS F/U INR: 1 MONTH Patient verbalizes understanding of instructions given Anti-Coag Initial Assessment Social Hx Patient Tobacco Use Status: Former Tobacco user alcohol intake: former Alcohol intake frequency: former alcohol drinker Cardiovascular Hx: HTN, CAD, LA and Arrhythmias Endocrine Hx: Thyroid Disease Musculoskeletal Hx: Arthritis Blood Disorder Hx: Hyperlipidemia GI Hx: Diverticulosis Neurological Hx: Migraines/Headaches Cancer HX: No Psych. Illness/Depression: No Questionnaires HAS-BLED Does the patient had uncontrolled Hypertension?: No Does the patient have renal disease?: No Does the patient have liver disease?: No Does the patient have a history of stroke?: No Has the patient had major bleeding or predisposition to bleeding?: No Does the patient have labile INRs?: Yes Is the patient over 65 years of age?: No Is the patient on medications that gives them a predisposition to bleeding?: Yes Does the patient use alcohol?: No HAS-BLED Score: 2 CHADSVASC Age: <65 Gender: Male Does the patient have a history of CHF?: No Does the patient have a history of Hypertension?: Yes Does the patient have a history of Stroke/TIA/Thromboembolism?: No Does the patient have a history of Vascular Disease (prior LA, PAD or aortic plaque)?: Yes Does the patient have a history of Diabetes?: No CHADS VACS Score: 2 Juanis Prediction Score Rsk VTE Active Cancer: No Previous VTE, excluding superficial vein thrombosis: No Reduced mobility: No Already known Thrombophilic Condition: No With-in last month Trauma and/or Surgery: No Elderly 70 year or older: No Heart and/or Respiratory Failure: No Acute Myocardial infarction and/or Ischemic Stroke: Yes (2011) Acute Infection and/or Rheumatologic Disorder: No Obesity (BMI 30 or greater): Yes Ongoing Hormonal Treatment: No Score: 2 Juanis Score less than 4; Low Risk of VTE Juanis Score 4 or greater; High Risk of VTE Coding Level of Care Code Est Patient Level 1 Diagnoses Current use of anticoagulant therapy Z79.01 Results AMB INR Fingerstick AMB INR Fingerstick 3.0 Last Edit by Mago Schmidt RN on 09/01/24 08:11 MANUAL ENTRY Assessment & Plan Assessment & Plan (1) Current use of anticoagulant therapy: 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
== END 2024-09-01 08:16 | disposition home or self-care (01) ==
LOC: HO.ACS 08:00
PROVIDERS: PCP Nurse Practitioner Family; Visit Provider Internal Medicine Medical Oncology
DX: Z79.01 Long term (current) use of anticoagulants (principal)

== ENCOUNTER → 2024-09-01 08:00 | Outpatient (BNVA) | payer OTHER, SELFPAY | PROVIDERS: PCP Nurse Practitioner Family; Visit Provider Internal Medicine Medical Oncology | DX: I48.0 Paroxysmal atrial fibrillation (principal); Z79.01 Long term (current) use of anticoagulants; Z51.81 Encounter for therapeutic drug level monitoring | CPT/HCPCS: 85610; 99211 ==

== ENCOUNTER 2024-09-29 08:12 | Outpatient (AMB) | payer OTHER, SELFPAY ==
[2024-09-29 08:17] LABS: Prothrombin Time Whole Bld POC 23.4 sec (11.1-13.5); ~PT, ~INR - Anti Coag Clinic 1.9 (0.9-1.1)
--- NOTE | 2024-09-29 08:24 | MHC.OFFVISCO ---
Intake Intake Visit Reasons: Anticoagulation Allergies atorvastatin [Lipitor] Adverse Reaction (Intermediate, Verified 09/29/24 08:12) didn't tolerate rosuvastatin [Crestor] Adverse Reaction (Intermediate, Verified 09/29/24 08:12) didn't tolerate venlafaxine [From Effexor] Adverse Reaction (Intermediate, Verified 09/29/24 08:12) did not tolerate Medication List - Last Reconciled 09/29/24 by Shraddha Martinez, RN amlodipine 2.5 mg PO DAILY bisacodyl (Dulcolax (bisacodyl)) 20 mg (4 x 5 mg) PO ONCE 1 day blood-glucose meter (FreeStyle Lite Meter kit) As directed buspirone 20mg in am, 20mg in pm orally; Managed by psych coenzyme Q10 (CoQ-10) 100 mg PO DAILY evolocumab (Repatha SureClick) 140 mg subcut Q2W 12 weeks fluoxetine 20 mg PO DAILY FreeStyle Lite Strips (blood sugar diagnostic) Test blood sugar once a day NS gabapentin 600 mg (2 x 300 mg) PO BEDTIME 30 days lancets (FreeStyle Lancets) Test blood sugar twice a day levothyroxine 50 mcg PO DAILY lisinopril 10 mg PO DAILY metoprolol tartrate 75 mg (1.5 x 50 mg) PO BID 90 days niacin PO [TUMERIC PO] warfarin 5 mg See Protocol PO DAILY Nursing Note INR: 1.9 out of therapeutic range of 2-3 Medications and supplements reviewed No changes in health, diet, medications, or supplements, Denies any signs and symptoms of bleeding or bruising or clotting. Bleeding, bruising, clotting discussed Nutritional guidance given to avoid greens today only then balance diet Dose: increase today's dose to 12.5mg (10mg) then resume usual dose of 10mg X 6 days and 12.5mg X 1 day (Wed) F/U INR: 4 weeks Patient verbalizes understanding of instructions given Anti-Coag Initial Assessment Social Hx Patient Tobacco Use Status: Former Tobacco user alcohol intake: former Alcohol intake frequency: former alcohol drinker Cardiovascular Hx: HTN, CAD, VT and Arrhythmias Endocrine Hx: Thyroid Disease Musculoskeletal Hx: Arthritis Blood Disorder Hx: Hyperlipidemia GI Hx: Diverticulosis Neurological Hx: Migraines/Headaches Cancer HX: No Psych. 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
== END 2024-09-29 08:26 | disposition home or self-care (01) ==
LOC: HO.ACS 08:12
PROVIDERS: PCP Nurse Practitioner Family; Visit Provider Internal Medicine Medical Oncology
DX: Z79.01 Long term (current) use of anticoagulants (principal)

== ENCOUNTER → 2024-09-29 08:12 | Outpatient (BNVA) | payer OTHER, SELFPAY | PROVIDERS: PCP Nurse Practitioner Family; Visit Provider Internal Medicine Medical Oncology | DX: I48.0 Paroxysmal atrial fibrillation (principal); Z79.01 Long term (current) use of anticoagulants; Z51.81 Encounter for therapeutic drug level monitoring | CPT/HCPCS: 85610; 99211 ==

== ENCOUNTER 2024-10-27 08:06 | Outpatient (AMB) | payer OTHER, SELFPAY ==
[2024-10-27 08:12] LABS: Prothrombin Time Whole Bld POC 49.5 sec (11.1-13.5); ~PT, ~INR - Anti Coag Clinic 4.1 (0.9-1.1)
--- NOTE | 2024-10-27 08:20 | MHC.OFFVISCO ---
Intake Intake Visit Reasons: Anticoagulation Allergies atorvastatin [Lipitor] Adverse Reaction (Intermediate, Verified 10/27/24 08:07) didn't tolerate rosuvastatin [Crestor] Adverse Reaction (Intermediate, Verified 10/27/24 08:07) didn't tolerate venlafaxine [From Effexor] Adverse Reaction (Intermediate, Verified 10/27/24 08:07) did not tolerate Medication List - Last Reconciled 10/27/24 by Shraddha Martinez, RN amlodipine 2.5 mg PO DAILY bisacodyl (Dulcolax (bisacodyl)) 20 mg (4 x 5 mg) PO ONCE 1 day blood-glucose meter (FreeStyle Lite Meter kit) As directed buspirone 20mg in am, 20mg in pm orally; Managed by psych coenzyme Q10 (CoQ-10) 100 mg PO DAILY evolocumab (Repatha SureClick) 140 mg subcut Q2W 12 weeks fluoxetine 20 mg PO DAILY FreeStyle Lite Strips (blood sugar diagnostic) Test blood sugar once a day NS gabapentin 600 mg (2 x 300 mg) PO BEDTIME 30 days lancets (FreeStyle Lancets) Test blood sugar twice a day levothyroxine 50 mcg PO DAILY lisinopril 10 mg PO DAILY metoprolol tartrate 75 mg (1.5 x 50 mg) PO BID 90 days niacin PO [TUMERIC PO] warfarin 5 mg See Protocol PO DAILY Nursing Note INR: 4.1?out of therapeutic range of 2-3 Medications and supplements reviewed Patient status: well Medications or supplements: no changes in meds Diet: Has been eating strawberries the past few days Denies any signs and symptoms of bleeding or clotting or unusual bruising Bleeding, bruising, clotting discussed Nutritional guidance given: have a serving of greens today Dose: decrease today's dose to 5mg (usual 10mg) then 10mg X 6 days and 12.5mg X 1 day (Wed) F/U INR Date: 2 weeks?? Patient verbalizing understanding of instructions given. Anti-Coag Initial Assessment Social Hx Patient Tobacco Use Status: Former Tobacco user alcohol intake: former Alcohol intake frequency: former alcohol drinker Cardiovascular Hx: HTN, CAD, [place] and Arrhythmias Endocrine Hx: Thyroid Disease Musculoskeletal Hx: Arthritis Blood Disorder Hx: Hyperlipidemia GI Hx: Diverticulosis Neurological Hx: Migraines/Headaches Cancer HX: No Psych. Illness/Depression: No Coding Level of Care Code Est Patient Level 1 Diagnoses Current use of anticoagulant therapy Z79.01 Results AMB INR Fingerstick AMB INR Fingerstick 4.1 Last Edit by Shraddha Martinez RN on 10/27/24 08:17 interface delay Assessment & Plan Assessment & Plan (1) Current use of anticoagulant therapy: Code(s): Z79.01 - residential (current) use of anticoagulants Category: Medical
== END 2024-10-27 08:25 | disposition home or self-care (01) ==
LOC: HO.ACS 08:06
PROVIDERS: PCP Nurse Practitioner Family; Visit Provider Internal Medicine Medical Oncology
DX: Z79.01 Long term (current) use of anticoagulants (principal)

== ENCOUNTER → 2024-10-27 08:06 | Outpatient (BNVA) | payer OTHER, SELFPAY | PROVIDERS: PCP Nurse Practitioner Family; Visit Provider Internal Medicine Medical Oncology | DX: I48.0 Paroxysmal atrial fibrillation (principal); Z79.01 Long term (current) use of anticoagulants; Z51.81 Encounter for therapeutic drug level monitoring | CPT/HCPCS: 85610; 99211 ==

== ENCOUNTER 2024-11-10 08:02 | Outpatient (AMB) | payer OTHER, SELFPAY ==
--- OUTSIDE RECORDS SUMMARY | 2024-11-10 08:05 | XMS_ITS | Patient Health Record ---
Author Organization [facility] Address [address] [place] [address] Care Team Providers Care Experience Designer Name Role Phone Tyson Yee M.D. Primary Care Provider Sunita ana Martinez Jr Xander Unavailable Reason For Referral No Information Medications Medication SIG (Take, Route, Frequency, Duration) Notes Start Date End Date Status Colyte with Flavor Packs 240 GM As directed Orally Over the specified time. for 1 day(s) 08/02/2014 Active Atorvastatin Calcium 80mg Active Levothyroxine Sodium 50mcg Active Aspir-81 81mg Active Citalopram Hydrobromide 20 MG 1 tablet Orally Once a day Active Lisinopril 20 MG 1 tablet Orally Once a day Active Metoprolol Succinate ER 100 MG 1 tablet Orally Once a day Active Problems Problem Type SNOMED Code ICD Code Onset Dates Problem Status W/U Status Risk Notes Problem Esophageal reflux (299090234) Esophageal reflux (530.81) Active confirmed Problem 853753144 Diverticulitis (562.11) Active confirmed Plan Of Treatment Future Test Test Name Order Date UPPER GI ENDOSCOPY 07/21/2012 COLONOSCOPY 08/02/2014 Insurance Providers Payer Name Payer Address Payer Phone Subscriber Number Group Number Insured Name Patient Relationship to Insured Coverage Start Date Coverage End Date [facility] [employer] [facility] [address] [address] [place], [place] [id number] KRISTIE CHAVARRIA Self - patient is the insured Medical (General) History Medical History History ICD Code heart attack 02/2012 hypertension Denies DM,CVA,Lung disease,renal disease atrial fibrillation Surgical History Surgery Date(Month/Year) double bypass surgery 03/2012
--- NOTE | 2024-11-10 08:13 | MHC.OFFVISCO ---
Intake Intake Visit Reasons: Anticoagulation Allergies atorvastatin (Lipitor) Adverse Reaction (Intermediate, Verified 11/10/24 08:04) didn't tolerate rosuvastatin (Crestor) Adverse Reaction (Intermediate, Verified 11/10/24 08:04) didn't tolerate venlafaxine (From Effexor) Adverse Reaction (Intermediate, Verified 11/10/24 08:04) did not tolerate Medication List - Last Reconciled 11/10/24 by Shraddha Martinez, RN amlodipine 2.5 mg PO DAILY bisacodyl (Dulcolax (bisacodyl)) 20 mg (4 x 5 mg) PO ONCE 1 day blood-glucose meter (FreeStyle Lite Meter kit) As directed buspirone 20mg in am, 20mg in pm orally; Managed by psych coenzyme Q10 (CoQ-10) 100 mg PO DAILY evolocumab (Repatha SureClick) 140 mg subcut Q2W 12 weeks fluoxetine 20 mg PO DAILY FreeStyle Lite Strips (blood sugar diagnostic) Test blood sugar once a day NS gabapentin 600 mg (2 x 300 mg) PO BEDTIME 30 days lancets (FreeStyle Lancets) Test blood sugar twice a day levothyroxine 50 mcg PO DAILY lisinopril 10 mg PO DAILY metoprolol tartrate 75 mg (1.5 x 50 mg) PO BID 90 days niacin PO [TUMERIC PO] warfarin 5 mg See Protocol PO DAILY Nursing Note INR: 2.3 in therapeutic range of 2-3 Medications and supplements reviewed No changes in health, diet, medications, or supplements, Denies any signs and symptoms of bleeding or bruising or clotting. Bleeding, bruising, clotting discussed Nutritional guidance given Dose: 10mg X 6 days and 12.5mg X 1 day (Wed) F/U INR: 4 weeks Patient verbalizes understanding of instructions given Anti-Coag Initial Assessment Social Hx Patient Tobacco Use Status: Former Tobacco user alcohol intake: former Alcohol intake frequency: former alcohol drinker Cardiovascular Hx: HTN, CAD, AL and Arrhythmias Endocrine Hx: Thyroid Disease Musculoskeletal Hx: Arthritis Blood Disorder Hx: Hyperlipidemia GI Hx: Diverticulosis Neurological Hx: Migraines/Headaches Cancer HX: No Psych. 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
[2024-11-10 08:50] LABS: Prothrombin Time Whole Bld POC 27.1 sec (11.1-13.5); ~PT, ~INR - Anti Coag Clinic 2.3 (0.9-1.1)
== END 2024-11-10 08:15 | disposition home or self-care (01) ==
LOC: HO.ACS 08:02
PROVIDERS: PCP Nurse Practitioner Family; Visit Provider Internal Medicine Medical Oncology
DX: Z79.01 Long term (current) use of anticoagulants (principal)

== ENCOUNTER → 2024-11-10 08:02 | Outpatient (BNVA) | payer OTHER, SELFPAY | PROVIDERS: PCP Nurse Practitioner Family; Visit Provider Internal Medicine Medical Oncology | DX: I48.0 Paroxysmal atrial fibrillation (principal); Z51.81 Encounter for therapeutic drug level monitoring; Z79.01 Long term (current) use of anticoagulants | CPT/HCPCS: 85610; 99211 ==

== ENCOUNTER 2024-12-08 08:01 | Outpatient (AMB) | payer OTHER, SELFPAY ==
--- OUTSIDE RECORDS SUMMARY | 2024-12-08 08:03 | XMS_ITS | Patient Health Record ---
Author Organization [facility] Address [address] [place] [address] Care Team Providers Care Budget Accountant Name Role Phone Tyson Yee M.D. Primary Care Provider Sunita ana Martinez Jr Xander Unavailable [phone] Reason For Referral No Information Medications Medication [...] W/U Status Risk Notes Problem Esophageal reflux (904697212) Esophageal reflux (530.81) Active confirmed Problem [id number] Diverticulitis (562.11) Active confirmed Plan Of Treatment Future Test Test Name Order Date UPPER GI ENDOSCOPY 07/21/2012 COLONOSCOPY 08/02/2014 Insurance Providers Payer Name Payer Address Payer Phone Subscriber Number Group Number Insured Name Patient Relationship to Insured Coverage Start Date Coverage End Date [facility] [address] [address] [place], [place] [id number] KRISTIE CHAVARRIA Self - patient is the insured Medical (General) History Medical History History ICD Code heart attack 02/2012 hypertension Denies DM,CVA,Lung disease,renal disease atrial fibrillation Surgical History Surgery Date(Month/Year) double bypass surgery 03/2012
[2024-12-08 08:08] LABS: Prothrombin Time Whole Bld POC 55.3 sec (11.1-13.5); ~PT, ~INR - Anti Coag Clinic 4.6 (0.9-1.1)
--- NOTE | 2024-12-08 08:16 | MHC.OFFVISCO ---
Intake Intake Visit Reasons: Anticoagulation Allergies atorvastatin (Lipitor) Adverse Reaction (Intermediate, Verified 12/08/24 08:02) didn't tolerate rosuvastatin (Crestor) Adverse Reaction (Intermediate, Verified 12/08/24 08:02) didn't tolerate venlafaxine (From Effexor) Adverse Reaction (Intermediate, Verified 12/08/24 08:02) did not tolerate Medication List - Last Reconciled 12/08/24 by Shraddha Martinez, RN amlodipine 2.5 mg PO DAILY bisacodyl (Dulcolax (bisacodyl)) 20 mg (4 x 5 mg) PO ONCE 1 day blood-glucose meter (FreeStyle Lite Meter kit) As directed buspirone 20mg in am, 20mg in pm orally; Managed by psych coenzyme Q10 (CoQ-10) 100 mg PO DAILY evolocumab (Repatha SureClick) 140 mg subcut Q2W 12 weeks fluoxetine 20 mg PO DAILY FreeStyle Lite Strips (blood sugar diagnostic) Test blood sugar once a day NS gabapentin 600 mg (2 x 300 mg) PO BEDTIME 30 days lancets (FreeStyle Lancets) Test blood sugar twice a day levothyroxine 50 mcg PO DAILY lisinopril 10 mg PO DAILY metoprolol tartrate 75 mg (1.5 x 50 mg) PO BID 90 days niacin PO [TUMERIC PO] warfarin 5 mg See Protocol PO DAILY Nursing Note INR: 4.6 out of therapeutic range of 2-3 Medications and supplements reviewed Patient status: feels well Medications or supplements: pt denies changes Diet: more tomatoes, cucumbers and onions Denies any signs and symptoms of bleeding or clotting or unusual bruising Bleeding, bruising, clotting discussed Nutritional guidance given: to have a serving of greens today such as broccoli or spinach Dose: decrease today's dose to 5mg (10mg) then resume usual dose of 10mg X 6 days and 12.5mg X 1 day (Wed) F/U INR Date: 2 weeks Patient verbalizing understanding of instructions given. Anti-Coag Initial Assessment Social Hx Patient Tobacco Use Status: Former Tobacco user alcohol intake: former Alcohol intake frequency: former alcohol drinker Cardiovascular Hx: HTN, CAD, CA and Arrhythmias Endocrine Hx: Thyroid Disease Musculoskeletal Hx: Arthritis Blood Disorder Hx: Hyperlipidemia GI Hx: Diverticulosis Neurological Hx: Migraines/Headaches Cancer HX: No Psych. 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
== END 2024-12-08 08:21 | disposition home or self-care (01) ==
LOC: HO.ACS 08:01
PROVIDERS: PCP Nurse Practitioner Family; Visit Provider Internal Medicine Medical Oncology
DX: Z79.01 Long term (current) use of anticoagulants (principal)

== ENCOUNTER → 2024-12-08 08:01 | Outpatient (BNVA) | payer OTHER, SELFPAY | PROVIDERS: PCP Nurse Practitioner Family; Visit Provider Internal Medicine Medical Oncology | DX: I48.0 Paroxysmal atrial fibrillation (principal); Z79.01 Long term (current) use of anticoagulants; Z51.81 Encounter for therapeutic drug level monitoring | CPT/HCPCS: 85610; 99211 ==

== ENCOUNTER 2024-12-22 08:18 | Outpatient (AMB) | payer OTHER, SELFPAY ==
[2024-12-22 08:24] LABS: Prothrombin Time Whole Bld POC 38.7 sec (11.1-13.5); ~PT, ~INR - Anti Coag Clinic 3.2 (0.9-1.1)
--- NOTE | 2024-12-22 08:25 | MHC.OFFVISCO ---
Intake Intake Visit Reasons: Anticoagulation Allergies atorvastatin (Lipitor) Adverse Reaction (Intermediate, Verified 12/22/24 08:19) didn't tolerate rosuvastatin (Crestor) Adverse Reaction (Intermediate, Verified 12/22/24 08:19) didn't tolerate venlafaxine (From Effexor) Adverse Reaction (Intermediate, Verified 12/22/24 08:19) did not tolerate Medication List - Last Reconciled 12/22/24 by Shraddha Martinez, RN amlodipine 2.5 mg PO DAILY bisacodyl (Dulcolax (bisacodyl)) 20 mg (4 x 5 mg) PO ONCE 1 day blood-glucose meter (FreeStyle Lite Meter kit) As directed buspirone 20mg in am, 20mg in pm orally; Managed by psych coenzyme Q10 (CoQ-10) 100 mg PO DAILY evolocumab (Repatha SureClick) 140 mg subcut Q2W 12 weeks fluoxetine 20 mg PO DAILY FreeStyle Lite Strips (blood sugar diagnostic) Test blood sugar once a day NS gabapentin 600 mg (2 x 300 mg) PO BEDTIME 30 days lancets (FreeStyle Lancets) Test blood sugar twice a day levothyroxine 50 mcg PO DAILY lisinopril 10 mg PO DAILY metoprolol tartrate 75 mg (1.5 x 50 mg) PO BID 90 days niacin PO [TUMERIC PO] warfarin 5 mg See Protocol PO DAILY Nursing Note INR: 3.2 out of therapeutic range of 2-3 Last INR 4.6. Pt states he eats more foods that raise the INR in the summer Medications and supplements reviewed No changes in health, diet, medications, or supplements, Denies any signs and symptoms of bleeding or bruising or clotting. Bleeding, bruising, clotting discussed Nutritional guidance given to have a serving of greens today Dose: will decrease weekly dose by 2.5mg. Pt will take 10mg daily. F/U INR: 4 weeks Patient verbalizes understanding of instructions given Anti-Coag Initial Assessment Social Hx Patient Tobacco Use Status: Former Tobacco user alcohol intake: former Alcohol intake frequency: former alcohol drinker Cardiovascular Hx: HTN, CAD, DC and Arrhythmias Endocrine Hx: Thyroid Disease Musculoskeletal Hx: Arthritis Blood Disorder Hx: Hyperlipidemia GI Hx: Diverticulosis Neurological Hx: Migraines/Headaches Cancer HX: No Psych. Illness/Depression: No Coding Level of Care Code Est Patient Level 1 Diagnoses Current use of anticoagulant therapy Z79.01 Assessment & Plan Assessment & Plan (1) Current use of anticoagulant therapy: Code(s): Z79.01 - penitentiary (current) use of anticoagulants Category: Medical
--- OUTSIDE RECORDS SUMMARY | 2024-12-22 08:30 | XMS_ITS | Patient Health Record ---
Author Organization [facility] Address [address] [place] [address] Care Team Providers Care Reverberatory Furnace Supervisor Name Role Phone Tyson Yee M.D. Primary [...] W/U Status Risk Notes Problem Esophageal reflux (461826718) Esophageal reflux (530.81) Active confirmed Problem [id number] Diverticulitis (562.11) Active confirmed Plan Of Treatment Future Test Test Name Order Date UPPER GI ENDOSCOPY 07/21/2012 COLONOSCOPY 08/02/2014 Insurance Providers Payer Name Payer Address Payer Phone Subscriber Number Group Number Insured Name Patient Relationship to Insured Coverage Start Date Coverage End Date [facility] [address] [address] [place], [place] [id number] KRISTIE CHAVARRIA Self - patient is the insured Medical (General) History Medical History History ICD Code heart attack 02/2012 hypertension Denies DM,CVA,Lung disease,renal disease atrial fibrillation Surgical History Surgery Date(Month/Year) double bypass surgery 03/2012
== END 2024-12-22 08:34 | disposition home or self-care (01) ==
LOC: HO.ACS 08:18
PROVIDERS: PCP Nurse Practitioner Family; Visit Provider Internal Medicine Medical Oncology
DX: Z79.01 Long term (current) use of anticoagulants (principal)

== ENCOUNTER → 2024-12-22 08:18 | Outpatient (BNVA) | payer OTHER, SELFPAY | PROVIDERS: PCP Nurse Practitioner Family; Visit Provider Internal Medicine Medical Oncology | DX: Z79.01 Long term (current) use of anticoagulants (principal) | CPT/HCPCS: 85610; 99211 ==

== ENCOUNTER 2024-12-26 08:59 | Outpatient (AMB) | payer OTHER, SELFPAY ==
--- NOTE | 2024-12-26 09:02 | MHC.OFFVIS ---
Vital Signs 12/26/24 09:04 Height 6 ft Weight 255 lb 4.725 oz BMI 34.6 BP 120/72 Blood Pressure Location Lt brachial Position Sitting Pulse 58 Pulse Source Pulse Oximeter Intake Visit Reasons: 1 yr follow up Career Information Specialist Required: No Accompanied by: Self / Same As Patient Allergies atorvastatin (Lipitor) Adverse Reaction (Intermediate, Verified 12/22/24 08:19) didn't tolerate rosuvastatin (Crestor) Adverse Reaction (Intermediate, Verified 12/22/24 08:19) didn't tolerate venlafaxine (From Effexor) Adverse Reaction (Intermediate, Verified 12/22/24 08:19) did not tolerate Medication List - Last Reconciled 12/26/24 by Sidney Collier MD amlodipine 2.5 mg PO DAILY bisacodyl (Dulcolax (bisacodyl)) 20 mg (4 x 5 mg) PO ONCE 1 day blood-glucose meter (FreeStyle Lite Meter kit) As directed buspirone 40 mg orally ; Managed by psych; coenzyme Q10 (CoQ-10) 100 mg PO DAILY evolocumab (Repatha SureClick) 140 mg subcut Q2W 12 weeks fluoxetine 20 mg PO DAILY FreeStyle Lite Strips (blood sugar diagnostic) Test blood sugar once a day NS gabapentin 600 mg (2 x 300 mg) PO BEDTIME 30 days lancets (FreeStyle Lancets) Test blood sugar twice a day levothyroxine 50 mcg PO DAILY lisinopril 10 mg PO DAILY metoprolol tartrate 75 mg (1.5 x 50 mg) PO BID 90 days niacin PO [TUMERIC PO] warfarin 10 mg See Protocol PO DAILY HPI Comments Details: Deacon returns for follow-up regarding atrial fibrillation as well as coronary disease. He has undergone coronary artery bypass surgery in 2011. Overall, he states he is feeling fine. No complaints like angina or shortness of breath or in fact anything cardiac sounding. Otherwise, history of statin intolerance and he has high lipids. On Repatha. Since last seen, no new issues or concerns. [facility] Medical History Fatty liver Plantar fasciitis Acquired hypothyroidism Radha syndrome Sleep apnea Mixed hyperlipidemia Essential hypertension PAF (paroxysmal atrial fibrillation) Atherosclerotic cardiovascular disease Afib Surgical History Hx of arthroscopic knee surgery History of colectomy History of esophagogastroduodenoscopy (EGD) Hx of colonoscopy Hx of CABG Family History Father Esophageal cancer Stomach cancer Mother Heart problem Brother No problems noted. 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 Current occupational exposures/hazards: Yes Cognitive needs: No Hearing needs: No Vision needs: Yes Review of Systems Const Denies chills, Denies fatigue, Denies fever(s), Denies frequent falls, Denies weakness, Denies weight gain and Denies weight loss ENT Denies dizziness Card Denies chest pain, Denies leg edema, Denies lightheadedness, Denies palpitations, Denies dyspnea and Denies dyspnea on exertion Resp Denies cough, Denies dyspnea and Denies dyspnea on exertion GI Denies hematochezia Musc Denies abnormal gait, Denies muscle weakness, Denies numbness, Denies radiating pain into limb and Denies tingling Neuro Denies abnormal gait, Denies dizziness, Denies frequent falls, Denies numbness, Denies tingling and Denies weakness Endo Denies fatigue and Denies palpitations Physical Exam Vital Signs: Last Vital Signs Pulse 58 12/26/24 09:04 BP 120/72 12/26/24 09:04 BMI result Body Mass Index 34.6 Const General: comfortable and no acute distress Orientation/consciousness: patient oriented x3 HEENT Other: Unremarkable Head: Yes normal to inspection Neck Neck: Yes normal visual inspection Chest Chest palpation & inspection: normal inspection of the chest Resp Auscultation: clear to auscultation bilaterally Cardio Palpation: normal PMI Heart sounds: S1 normal heart sound present, S2 normal heart sound present, no gallops, no murmurs and no rubs GI Palpation (GI): Soft to palpation Back/Spine/Pelvis Other: unremarkable Skin General skin exam: no rashes or lesions noted Neuro General: patient oriented x3 Extrem General: Yes normal to inspection Psych Mental Status: mental status grossly normal Assessment & Plan Assessment & Plan (1) Atherosclerotic cardiovascular disease: Code(s): I25.10 - Atherosclerotic heart disease of [place] coronary artery without angina pectoris Category: Medical Plan: In the last echocardiogram, LVEF 60-65%. Basal inferior/inferoseptal hypokinesis. No significant valvular findings. Mild ascending aortic dilatation at 3.9 cm. In the stress test, he was able to exercise for 10.1 Mets. Reached 90% of max predicted heart rate. No angina. Normal blood pressure response. Borderline EKG changes during recovery. Perfusion imaging reported normal. Clinically, no angina. Continue optimal medical therapy. (2) PAF (paroxysmal atrial fibrillation): Code(s): I48.0 - Paroxysmal atrial fibrillation Category: Medical Plan: Stable. He remains on beta-blockers and warfarin. (3) Essential hypertension: Code(s): I10 - Essential (primary) hypertension Category: Medical Plan: Stable. No changes. (4) Mixed hyperlipidemia: Code(s): E78.2 - Mixed hyperlipidemia Category: Medical Plan: Statin intolerance due to myalgias. On Repatha. His LDL levels into the 200s in the past. Most recently, in the 80s. Plan Discussion Notes We agreed to continue his current medication regimen and to follow up annually unless new symptoms arise. Patient was informed and verbally consented to the use of an ambient scribe for clinic note documentation during this visit. Medications: Changed From warfarin 5 mg See Protocol PO DAILY 156 tabs 2RF I48.0 - Paroxysmal atrial fibrillation To warfarin 10 mg See Protocol PO DAILY I48.0 - Paroxysmal atrial fibrillation Patient Instructions: - Monitor for chest pain or new symptoms. - Continue current medications as prescribed. - Schedule annual follow-up appointments unless new symptoms develop. Coding Level of Care Code Est Pt Level 4 (55639) Complex EM visit Add On G2211 Diagnoses Atherosclerotic cardiovascular disease I25.10 PAF (paroxysmal atrial fibrillation) I48.0 Essential hypertension I10 Mixed hyperlipidemia E78.2
[2024-12-26 09:04] VITALS: BP 120/72; PULSE 58; BMI 34.6
--- OUTSIDE RECORDS SUMMARY | 2024-12-26 09:28 | XMS_ITS | Patient Health Record ---
Author Organization [facility] Address [address] [place] [address] Care Team Providers Care Shank Inspector Name Role Phone Tyson Yee M.D. Primary Care Provider Sunita ana Martinez Jr Xander Unavailable [phone] Reason For Referral No Information Medications Medication [...] W/U Status Risk Notes Problem Esophageal reflux (442266298) Esophageal reflux (530.81) Active confirmed Problem 097901308 Diverticulitis (562.11) Active confirmed Plan Of Treatment Future Test Test Name Order Date UPPER GI ENDOSCOPY 07/21/2012 COLONOSCOPY 08/02/2014 Insurance Providers Payer Name Payer Address Payer Phone Subscriber Number Group Number Insured Name Patient Relationship to Insured Coverage Start Date Coverage End Date [facility] [facility] [address] [address] [place], [place] [id number] KRISTIE CHAVARRIA Self - patient is the insured Medical (General) History Medical History History ICD Code heart attack 02/2012 hypertension Denies DM,CVA,Lung disease,renal disease atrial fibrillation Surgical History Surgery Date(Month/Year) double bypass surgery 03/2012
== END 2024-12-26 09:24 | disposition home or self-care (01) ==
LOC: HO.HCS 09:00
PROVIDERS: PCP Nurse Practitioner Family; Visit Provider Internal Medicine
DX: I25.10 Atherosclerotic heart disease of native coronary artery without angina pectoris (principal); I48.0 Paroxysmal atrial fibrillation; I10 Essential (primary) hypertension; E78.2 Mixed hyperlipidemia
CPT/HCPCS: 99214

== ENCOUNTER → 2024-12-26 08:59 | Outpatient (BNVA) | payer OTHER, SELFPAY | PROVIDERS: PCP Nurse Practitioner Family; Visit Provider Internal Medicine | DX: I48.0 Paroxysmal atrial fibrillation (principal); I25.10 Atherosclerotic heart disease of native coronary artery without angina pectoris; I10 Essential (primary) hypertension; E78.2 Mixed hyperlipidemia; Z95.1 Presence of aortocoronary bypass graft | CPT/HCPCS: 99212 ==

== ENCOUNTER 2024-12-28 07:30 | Outpatient (REF) | payer OTHER, SELFPAY ==
--- OUTSIDE RECORDS SUMMARY | 2024-12-28 07:33 | XMS_ITS | Patient Health Record ---
Author Organization [facility] Address [address] [place] [address] Care Team Providers Care Turkey Cleaner Name Role Phone Tyson Yee M.D. Primary Care Provider Sunita Martinez Jr Xander Unavailable [phone] Reason For Referral No Information Medications [...] Status W/U Status Risk Notes Problem Esophageal reflu x (530.81) Active confirmed Problem [id number] Diverticulitis (562.11) Active confirmed Plan Of Treatment Future Test Test Name Order Date UPPER GI ENDOSCOPY 07/21/2012 COLONOSCOPY 08/02/2014 Insurance Providers Payer Name Payer Address Payer Phone Subscriber Number Group Number Insured Name Patient Relationship to Insured Coverage Start Date Coverage End Date [facility] [address] [address] [place], [place] [id number] KRISTIE CHAVARRIA Self - patient is the insured Medical (General) History Medical History History ICD Code heart attack 02/2012 hypertension Denies DM,CVA,Lung disease,renal disease atrial fibrillation Surgical History Surgery Date(Month/Year) double bypass surgery 03/2012
[2024-12-28 10:05] LABS: MANUAL DIFF FLAG NO
[2024-12-28 10:07] LABS: Hematocrit 43.3 % (42.0-52.0); Hemoglobin 15.3 g/dl (14.0-18.0); Imm Gran Abs Auto 0.02 X10*3/uL (0.00-0.03); Imm Gran Pct Auto 0.4 % (0.0-0.4); Lymphocytes Absolute Auto 2.3 X10*3/uL (1.2-4.9); Mean Corpuscular HGB Conc 35.3 g/dl (31.0-36.0); Mean Corpuscular Hemoglobin 31.0 pg (27.0-33.0); Mean Corpuscular Volume 87.8 fL (80.0-98.0); NRBC Abs Auto 0.000 X10*3/uL (0.0-0.012); NRBC Pct Auto 0.0 /100WBC (0.0-0.2); Platelet Count 216 X10*3/uL (160-400); Red Blood Count 4.93 X10*6/uL (4.60-5.80); White Blood Count 5.7 X10*3/uL (4.8-10.8)
[2024-12-28 10:21] LABS: Appearance Urine Turbid; Glucose Urine UA Negative (Negative); PH 5.0 (5.0-9.0); Specific Gravity - Urine 1.025 (1.005-1.025)
[2024-12-28 10:25] LABS: Alanine Aminotransferase 43 U/L (0-40); Albumin Level 4.3 g/dL (3.5-5.0); Alkaline Phosphatase 49 U/L (39-117); Anion Gap 14 (12-20); Aspartate Amino Transferase 35 U/L (5-37); Blood Urea Nitrogen 21 mg/dL (9-16); Calcium 8.8 mg/dL (8.4-10.2); Carbon Dioxide 24 mmol/L (22-29); Chloride 106 mmol/L (96-108); Cholesterol 160 mg/dL (<200); Estimated Glomerular Filt Rate > 60; HDL Cholesterol 34 mg/dL (>40); Potassium 4.3 mmol/L (3.3-5.1); Sodium 140 mmol/L (135-145); Total Protein 7.0 g/dL (6.5-8.0); Triglycerides 315 mg/dL (<150)
== END 2024-12-28 07:31 | disposition home or self-care (01) ==
LOC: HO.HMGCLDS 07:30
PROVIDERS: PCP Nurse Practitioner Family; Visit Provider Nurse Practitioner Family
DX: Z00.00 Encounter for general adult medical examination without abnormal findings (principal); Z12.5 Encounter for screening for malignant neoplasm of prostate
CPT/HCPCS: 36415; 80053; 80061; 81003; 84153; 84443; 85025

== ENCOUNTER 2025-01-01 07:55 | Outpatient (AMB) | payer OTHER, SELFPAY ==
--- OUTSIDE RECORDS SUMMARY | 2025-01-01 07:59 | XMS_ITS | Patient Health Record ---
Author Organization [facility] Address [address] [place] [address] Care Team Providers Care Division Operations Specialist Name Role Phone Tyson Yee M.D. Primary [...] W/U Status Risk Notes Problem Esophageal reflux (043353247) Esophageal reflux (530.81) Active confirmed Problem 506007655 Diverticulitis (562.11) Active confirmed Plan Of Treatment Future Test Test Name Order Date UPPER GI ENDOSCOPY 07/21/2012 COLONOSCOPY 08/02/2014 Insurance Providers Payer Name Payer Address Payer Phone Subscriber Number Group Number Insured Name Patient Relationship to Insured Coverage Start Date Coverage End Date [facility] [employer] [facility] [address] [address] [place], [place] [id number] KRISTIE CHAVARRIA Self - patient is the insured Medical (General) History Medical History History ICD Code heart attack 02/2012 hypertension Denies DM,CVA,Lung disease,renal disease atrial fibrillation Surgical History Surgery Date(Month/Year) double bypass surgery 03/2012
--- NOTE | 2025-01-01 08:11 | MHC.PC.OV ---
Vital Signs 01/01/25 08:12 Weight 259 lb BP 122/80 Blood Pressure Location Lt brachial Position Sitting Respiration 16 Pulse 53 Pulse Source Pulse Oximeter Pulse Oximetry (%) 96 Oxygen Delivery Method Room Air Intake Visit Reasons: 6m follow up-Confirmed 12/29 DCR Umbrella Cutter Required: No Accompanied by: Self / Same As Patient Allergies atorvastatin (Lipitor) Adverse Reaction (Intermediate, Verified 12/22/24 08:19) didn't tolerate rosuvastatin (Crestor) Adverse Reaction (Intermediate, Verified 12/22/24 08:19) didn't tolerate venlafaxine (From Effexor) Adverse Reaction (Intermediate, Verified 12/22/24 08:19) did not tolerate Tobacco use date assessed: 01/01/25 Dental Screening Dental Screen Date: 01/01/25 Did you have a dental visit in the last 12 months?: Yes Did you have a dental problem in the last 6 months where you did not have access to dental care?: No Was dental information given to patient?: Patient has dentist HPI 6m follow up-Confirmed 12/29 DCR HPI Details Chief Complaint The patient's chief complaint is chest discomfort associated with motion of the upper torso and palpation of the sternal region. History of Present Illness The patient is a 59-year-old male presenting with a generalized follow-up visit. He has a history of fatty liver disease and recent laboratory tests indicated slightly elevated liver enzymes. The patient has been advised to work on his diet, particularly focusing on reducing bad carbohydrates and sugars, as his fasting blood glucose was recorded at 123 mg/dL. The primary concern today is chest discomfort, which is exacerbated by movement of the upper torso and palpation of the sternal region. The patient underwent open heart surgery in 2011, during which wire mesh was placed, and this is believed to contribute to his current symptoms. He has tried NSAIDs with minimal relief and is now advised to use Voltaren gel in the affected area. Cardiac causes for the chest discomfort have been ruled out, and the patient continues to follow up with cardiology. Social History Health Maintenance - Diet modification: Advised to reduce intake of bad carbohydrates and sugars Review of Systems - Cardiovascular: Denies cardiac-related chest pain, reports discomfort with upper torso movement and sternal palpation Physical Exam General: Cooperative, healthy appearing, comfortable, no acute distress and well developed Orientation: Patient oriented x3 Limitations: No limitations Head: Normal to inspection Ears: Hearing grossly normal bilaterally Nose: Normal external nose present Face and sinus: Normal facial exam Eyes: Appearance normal, both eyes and all related structures Neck: Normal visual inspection and Yes full ROM Respiratory: Normal respiratory effort and able to speak in complete sentences. Clear to auscultation bilaterally Cardiovascular: Regular rate and rhythm. Normal S1 and S2 GI: Normal to inspection. Soft to palpation and nontender Skin: No rashes or lesions noted Neuro: Patient oriented x3 Extremities: Normal to inspection. palpation of upper sternal region, tenderness noted. tenderness noted to same region with turning upper torso side to side. Results - Labs: Slightly elevated liver enzymes - Labs: Fasting blood glucose at 123 mg/dL Plan The patient will continue to work on dietary modifications to manage his fatty liver disease and elevated fasting blood glucose levels. He is advised to reduce intake of bad carbohydrates and sugars to help control his blood glucose levels. For the chest discomfort, which is likely related to his previous open heart surgery and wire mesh placement, the patient will try Voltaren gel for symptomatic relief. Cardiac causes have been ruled out, and he will continue follow-up with cardiology to monitor his condition. Discussion Notes I discussed with the patient the importance of dietary changes to manage his fatty liver disease and elevated fasting blood glucose. We also reviewed the chest discomfort, which is likely related to his previous surgery, and I recommended trying Voltaren gel for relief. The patient will continue to follow up with cardiology, and I will see him for a full physical in the near future. Patient Instructions - Work on reducing bad carbohydrates and sugars in your diet. - Apply Voltaren gel to the sternal region as needed for discomfort. - Continue follow-up with your medical receptionist medical assistant. [facility] Medical History (Updated 01/01/25 @ 08:37 by Jose Mulligan, [facility]) Fatty liver Plantar fasciitis Acquired hypothyroidism Radha syndrome Sleep apnea Mixed hyperlipidemia Essential hypertension PAF (paroxysmal atrial fibrillation) Atherosclerotic cardiovascular disease Afib Surgical History Hx of arthroscopic knee surgery History of colectomy History of esophagogastroduodenoscopy (EGD) Hx of colonoscopy Hx of CABG Family History Father Esophageal cancer Stomach cancer Mother Heart problem Brother No problems noted. 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 1. Little interest or pleasure in doing things: not at all 2. Feeling down, depressed, or hopeless: not at all 3. Trouble falling or staying asleep, or sleeping too much: not at all 4. Feeling tired or having little energy: not at all 5. Poor appetite or overeating: not at all 6. Feeling bad about yourself - or that you are a failure or have let yourself or your family down: not at all 7. Trouble concentrating on things, such as reading the newspaper or watching television: not at all 8. Moving or speaking so slowly that other people could have noticed. Or the opposite - being so fidgety or restless that you have been moving around a lot more than usual: not at all 9. Thoughts that you would be better off or of hurting yourself in some way: not at all Total score: 0 Depression Screening Interpretation: Negative Depression Screening Done: Yes 29505 - PHQ-9 Billing: Patient declined-do not bill Source: Developed by Drs. Mohamud Queen, Alvina Longoria, Ismael Damon and colleagues, with an educational sameera from [employer]. Thrive Questionnaire Date Thrive assessed: 07/04/24 PK-7 AMB Questionnaire PK-7 Date PK - 7 assessed: 01/01/25 Feeling nervous, anxious, or on edge: 0 = Not at all Not being able to stop or control worryin = Not at all Worrying too much about different things: 0 = Not at all Trouble relaxin = Not at all Being so restless that it is hard to sit still: 0 = Not at all Becoming easily annoyed or irritable: 0 = Not at all Feeling afraid as if something awful might happen: 0 = Not at all Total PK-7 score (0-4 normal; 5-9 mild; 10-14 moderate; 15-21 severe): 0 Source: Developed by Drs. Mohamud Queen, Alvina Longoria, Ismael Damon and colleagues, with an educational sameera from [employer]. PK-7 Assessment Billing PK-7 Assessment Tool: PK-7 Assessment 64496 Physical exam (Primary Care) Vital Signs: Last Vital Signs Pulse 53 01/01/25 08:12 Resp 16 01/01/25 08:12 BP 122/80 01/01/25 08:12 Pulse Ox 96 01/01/25 08:12 Oxygen Delivery Method Room Air 01/01/25 08:12 Tobacco/Smoking Status: Tobacco use Status Tobacco use date assessed 01/01/25 01/01/25 08:16 Patient Tobacco Use Status Former Tobacco user 01/01/25 08:16 e-Cigarette/Vaping Use Never Used 01/01/25 08:16 PHQ-9: PHQ-9 Score PHQ-9: Total score 0 01/01/25 08:16 Depression Screening Interpretation: Negative Thrive Assessment: Date of Thrive Assessment Date Thrive assessed 07/04/24 01/01/25 08:16 Coding Level of Care Code Est Pt Level 3 (39015) Diagnoses Chest discomfort R07.89 Elevated fasting blood sugar R73.01 Elevated liver enzymes R74.8 Fatty liver K76.0 Additional Codes PK-7 Assessment Billing - PK-7 Assessment Tool: PK-7 Assessment 80784 ([id number]) Assessment & Plan Assessment & Plan (1) Chest discomfort: Code(s): R07.89 - Other chest pain Category: Medical (2) Elevated fasting blood sugar: Code(s): R73.01 - Impaired fasting glucose Category: Medical (3) Elevated liver enzymes: Code(s): R74.8 - Abnormal levels of other serum enzymes Category: Medical (4) Fatty liver: Code(s): K76.0 - Fatty (change of) liver, not elsewhere classified Category: Medical Plan .
[2025-01-01 08:12] VITALS: BP 122/80; PULSE 53; RESP 16; O2SAT 96
== END 2025-01-01 08:37 | disposition home or self-care (01) ==
LOC: HO.HMCC 07:56
PROVIDERS: PCP Nurse Practitioner Family; Visit Provider Nurse Practitioner Family
DX: R07.89 Other chest pain (principal); R73.01 Impaired fasting glucose; R74.8 Abnormal levels of other serum enzymes; K76.0 Fatty (change of) liver, not elsewhere classified

== ENCOUNTER → 2025-01-01 07:55 | Outpatient (BNVA) | payer OTHER, SELFPAY | PROVIDERS: PCP Nurse Practitioner Family; Visit Provider Nurse Practitioner Family | DX: R73.01 Impaired fasting glucose (principal); R07.89 Other chest pain; R74.8 Abnormal levels of other serum enzymes; K76.0 Fatty (change of) liver, not elsewhere classified | CPT/HCPCS: 96127; 99212 ==

== ENCOUNTER 2025-01-19 08:21 | Outpatient (AMB) | payer OTHER, SELFPAY ==
--- NOTE | 2025-01-19 08:30 | MHC.OFFVISCO ---
Intake Intake Visit Reasons: Anticoagulation Allergies atorvastatin (Lipitor) Adverse Reaction (Intermediate, Verified 01/19/25 08:26) didn't tolerate rosuvastatin (Crestor) Adverse Reaction (Intermediate, Verified 01/19/25 08:26) didn't tolerate venlafaxine (From Effexor) Adverse Reaction (Intermediate, Verified 01/19/25 08:26) did not tolerate Medication List - Last Reconciled 01/19/25 by Jonelle Palma RN amlodipine 2.5 mg PO DAILY bisacodyl (Dulcolax (bisacodyl)) 20 mg (4 x 5 mg) PO ONCE 1 day blood-glucose meter (FreeStyle Lite Meter kit) As directed buspirone 40 mg orally ; Managed by psych; coenzyme Q10 (CoQ-10) 100 mg PO DAILY evolocumab (Repatha SureClick) 140 mg subcut Q2W fluoxetine 20 mg PO DAILY FreeStyle Lite Strips (blood sugar diagnostic) Test blood sugar once a day NS gabapentin 600 mg (2 x 300 mg) PO BEDTIME 30 days lancets (FreeStyle Lancets) Test blood sugar twice a day levothyroxine 50 mcg PO DAILY lisinopril 10 mg PO DAILY metoprolol tartrate 75 mg (1.5 x 50 mg) PO BID 90 days niacin PO [TUMERIC PO] warfarin 10 mg See Protocol PO DAILY Nursing Note INR 3.4-?? out of therapeutic range 2-3 Medications and supplements reviewed Patient status: no c.o Medications or supplements: no changes Diet: same Denies any signs and symptoms of bleeding or clotting or unusual bruising Bleeding, bruising, clotting discussed Nutritional guidance given: eat greens to lower Dose: 7.5mg today - reduce weekly dosing to 10mg x 6, 7.5mg x 1 F/U INR Date : 2 weeks Patient verbalizing understanding of instructions given. Anti-Coag Initial Assessment Social Hx Patient Tobacco Use Status: Former Tobacco user alcohol intake: former Alcohol intake frequency: former alcohol drinker Cardiovascular Hx: HTN, CAD, [place] and Arrhythmias Endocrine Hx: Thyroid Disease Musculoskeletal Hx: Arthritis Blood Disorder Hx: Hyperlipidemia GI Hx: Diverticulosis Neurological Hx: Migraines/Headaches Cancer HX: No Psych. 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
[2025-01-19 08:31] LABS: Prothrombin Time Whole Bld POC 40.4 sec (11.1-13.5); ~PT, ~INR - Anti Coag Clinic 3.4 (0.9-1.1)
--- OUTSIDE RECORDS SUMMARY | 2025-01-19 08:47 | XMS_ITS | Patient Health Record ---
Author Organization [facility] Address [address] [place] [address] Care Team Providers Care Stock Crane Operator Name Role Phone Tyson Yee M.D. Primary Care Provider Sunita ana Martinez Jr Xander Unavailable [phone] Reason For Referral No Information Medications [...] W/U Status Risk Notes Problem Esophageal reflux (831580174) Esophageal reflux (530.81) Active confirmed Problem 132854621 Diverticulitis (562.11) Active confirmed Plan Of Treatment Future Test Test Name Order Date UPPER GI ENDOSCOPY 07/21/2012 COLONOSCOPY 08/02/2014 Insurance Providers Payer Name Payer Address Payer Phone Subscriber Number Group Number Insured Name Patient Relationship to Insured Coverage Start Date Coverage End Date [facility] [employer] [facility] [address] [address] [place], [place] [id number] KRISTIE CHAVARRIA Self - patient is the insured Medical (General) History Medical History History ICD Code heart attack 02/2012 hypertension Denies DM,CVA,Lung disease,renal disease atrial fibrillation Surgical History Surgery Date(Month/Year) double bypass surgery 03/2012
== END 2025-01-19 08:38 | disposition home or self-care (01) ==
LOC: HO.ACS 08:21
PROVIDERS: PCP Nurse Practitioner Family; Visit Provider Internal Medicine Medical Oncology
DX: Z79.01 Long term (current) use of anticoagulants (principal)

== ENCOUNTER → 2025-01-19 08:21 | Outpatient (BNVA) | payer OTHER, SELFPAY | PROVIDERS: PCP Nurse Practitioner Family; Visit Provider Internal Medicine Medical Oncology | DX: I48.0 Paroxysmal atrial fibrillation (principal); Z79.01 Long term (current) use of anticoagulants; Z51.81 Encounter for therapeutic drug level monitoring | CPT/HCPCS: 85610; 99211 ==

== ENCOUNTER 2025-02-02 08:18 | Outpatient (AMB) | payer OTHER, SELFPAY ==
[2025-02-02 08:25] LABS: Prothrombin Time Whole Bld POC 45.0 sec (11.1-13.5); ~PT, ~INR - Anti Coag Clinic 3.8 (0.9-1.1)
--- NOTE | 2025-02-02 08:30 | MHC.OFFVISCO ---
Intake Intake Visit Reasons: Anticoagulation Allergies atorvastatin (Lipitor) Adverse Reaction (Intermediate, Verified 02/02/25 08:20) didn't tolerate rosuvastatin (Crestor) Adverse Reaction (Intermediate, Verified 02/02/25 08:20) didn't tolerate venlafaxine (From Effexor) Adverse Reaction (Intermediate, Verified 02/02/25 08:20) did not tolerate Medication List - Last Reconciled 02/02/25 by Shraddha Martinez RN amlodipine 2.5 mg PO DAILY bisacodyl (Dulcolax (bisacodyl)) 20 mg (4 x 5 mg) PO ONCE 1 day blood-glucose meter (FreeStyle Lite Meter kit) As directed buspirone 40 mg orally ; Managed by psych; coenzyme Q10 (CoQ-10) 100 mg PO DAILY evolocumab (Repatha SureClick) 140 mg subcut Q2W fluoxetine 20 mg PO DAILY FreeStyle Lite Strips (blood sugar diagnostic) Test blood sugar once a day NS gabapentin 600 mg (2 x 300 mg) PO BEDTIME 30 days lancets (FreeStyle Lancets) Test blood sugar twice a day levothyroxine 50 mcg PO DAILY lisinopril 10 mg PO DAILY metoprolol tartrate 75 mg (1.5 x 50 mg) PO BID 90 days niacin PO [TUMERIC PO] warfarin 10 mg See Protocol PO DAILY Nursing Note INR: 3.8 in therapeutic range of 2-3 Medications and supplements reviewed No changes in health, diet, medications, or supplements, Denies any signs and symptoms of bleeding or bruising or clotting. Bleeding, bruising, clotting discussed Nutritional guidance given to have a serving of greens today Dose: hold today's dose of 7.5mg and then 10mg X 6 days and 7.5mg X 1 day (Wed) F/U INR: 2 weeks Patient verbalizes understanding of instructions given Anti-Coag Initial Assessment Social Hx Patient Tobacco Use Status: Former Tobacco user alcohol intake: former Alcohol intake frequency: former alcohol drinker Cardiovascular Hx: HTN, CAD, [place] and Arrhythmias Endocrine Hx: Thyroid Disease Musculoskeletal Hx: Arthritis Blood Disorder Hx: Hyperlipidemia GI Hx: Diverticulosis Neurological Hx: Migraines/Headaches Cancer HX: No Psych. 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
== END 2025-02-02 08:37 | disposition home or self-care (01) ==
LOC: HO.ACS 08:18
PROVIDERS: PCP Nurse Practitioner Family; Visit Provider Internal Medicine Medical Oncology
DX: Z79.01 Long term (current) use of anticoagulants (principal)

== ENCOUNTER → 2025-02-02 08:18 | Outpatient (BNVA) | payer OTHER, SELFPAY | PROVIDERS: PCP Nurse Practitioner Family; Visit Provider Internal Medicine Medical Oncology | DX: I48.0 Paroxysmal atrial fibrillation (principal); Z79.01 Long term (current) use of anticoagulants; Z51.81 Encounter for therapeutic drug level monitoring | CPT/HCPCS: 85610; 99211 ==

== ENCOUNTER 2025-02-16 08:27 | Outpatient (AMB) | payer OTHER, SELFPAY ==
[2025-02-16 08:34] LABS: Prothrombin Time Whole Bld POC 34.2 sec (11.1-13.5); ~PT, ~INR - Anti Coag Clinic 2.8 (0.9-1.1)
--- NOTE | 2025-02-16 08:39 | MHC.OFFVISCO ---
Intake Intake Visit Reasons: Anticoagulation Allergies atorvastatin (Lipitor) Adverse Reaction (Intermediate, Verified 02/16/25 08:27) didn't tolerate rosuvastatin (Crestor) Adverse Reaction (Intermediate, Verified 02/16/25 08:27) didn't tolerate venlafaxine (From Effexor) Adverse Reaction (Intermediate, Verified 02/16/25 08:27) did not tolerate Medication List - Last Reconciled 02/16/25 by Shraddha Martinez, RN amlodipine 2.5 mg PO DAILY bisacodyl (Dulcolax (bisacodyl)) 20 mg (4 x 5 mg) PO ONCE 1 day blood-glucose meter (FreeStyle Lite Meter kit) As directed buspirone 40 mg orally ; Managed by psych; coenzyme Q10 (CoQ-10) 100 mg PO DAILY evolocumab (Repatha SureClick) 140 mg subcut Q2W fluoxetine 20 mg PO DAILY FreeStyle Lite Strips (blood sugar diagnostic) Test blood sugar once a day NS gabapentin 600 mg (2 x 300 mg) PO BEDTIME 30 days lancets (FreeStyle Lancets) Test blood sugar twice a day levothyroxine 50 mcg PO DAILY lisinopril 10 mg PO DAILY metoprolol tartrate 75 mg (1.5 x 50 mg) PO BID 90 days niacin PO [TUMERIC PO] warfarin 5 mg PO DAILY Nursing Note INR: 2.8 in therapeutic range of 2-3 Medications and supplements reviewed No changes in health, diet, medications, or supplements, Denies any signs and symptoms of bleeding or bruising or clotting. Bleeding, bruising, clotting discussed Nutritional guidance given to have a serving of greens today Dose: 10mg X 6 days and 7.5mg X 1 day (Wed) F/U INR: 4 weeks Patient verbalizes understanding of instructions given Anti-Coag Initial Assessment Social Hx Patient Tobacco Use Status: Former Tobacco user alcohol intake: former Alcohol intake frequency: former alcohol drinker Cardiovascular Hx: HTN, CAD, [place] and Arrhythmias Endocrine Hx: Thyroid Disease Musculoskeletal Hx: Arthritis Blood Disorder Hx: Hyperlipidemia GI Hx: Diverticulosis Neurological Hx: Migraines/Headaches Cancer HX: No Psych. 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
--- OUTSIDE RECORDS SUMMARY | 2025-02-16 08:49 | XMS_ITS | Patient Health Record ---
Author Organization [facility] Address [address] [place] [address] Care Team Providers Care Allergy Specialist Name Role Phone Tyson Yee M.D. Primary Care Provider Sunita ana Martinez Jr Xander Unavailable [phone] Reason For Referral No Information Medications Medication [...] W/U Status Risk Notes Problem Esophageal reflux (171903111) Esophageal reflux (530.81) Active confirmed Problem 981765895 Diverticulitis (562.11) Active confirmed Plan Of Treatment Future Test Test Name Order Date UPPER GI ENDOSCOPY 07/21/2012 COLONOSCOPY 08/02/2014 Insurance Providers Payer Name Payer Address Payer Phone Subscriber Number Group Number Insured Name Patient Relationship to Insured Coverage Start Date Coverage End Date [facility] [employer] [facility] [address] [address] [place], [place] [id number] KRISTIE CHAVARRIA Self - patient is the insured Medical (General) History Medical History History ICD Code heart attack 02/2012 hypertension Denies DM,CVA,Lung disease,renal disease atrial fibrillation Surgical History Surgery Date(Month/Year) double bypass surgery 03/2012
== END 2025-02-16 08:42 | disposition home or self-care (01) ==
LOC: HO.ACS 08:27
PROVIDERS: PCP Nurse Practitioner Family; Visit Provider Internal Medicine Medical Oncology
DX: Z79.01 Long term (current) use of anticoagulants (principal)

== ENCOUNTER → 2025-02-16 08:27 | Outpatient (BNVA) | payer OTHER, SELFPAY | PROVIDERS: PCP Nurse Practitioner Family; Visit Provider Internal Medicine Medical Oncology | DX: I48.0 Paroxysmal atrial fibrillation (principal); Z79.01 Long term (current) use of anticoagulants; Z51.81 Encounter for therapeutic drug level monitoring | CPT/HCPCS: 85610; 99211 ==

== ENCOUNTER 2025-03-16 08:18 | Outpatient (AMB) | payer OTHER, SELFPAY ==
--- OUTSIDE RECORDS SUMMARY | 2025-03-16 08:22 | XMS_ITS | Patient Health Record ---
Author Organization [facility] Address [address] [place] [address] Care Team Providers Care Placement Interviewer Name Role Phone Tyson Yee M.D. Primary Care Provider Sunita Martinez Jr Xander Unavailable [phone] Reason For Referral No Information Medications Medication SIG (Take, Route, Frequency, Duration) Notes Start Date End Date Status Colyte with Flavor Packs 240 GM As directed Orally Over the specified time.; Duration: 1 day(s) 08/02/2014 Active Atorvastatin Calcium 80mg [...] W/U Status Risk Notes Problem Esophageal reflux (865415466) Esophageal reflux (530.81) Active confirmed Problem Diverticulitis (99472322) Diverticulitis (562.11) Active confirmed Plan Of Treatment Future Test Test Name Order Date UPPER GI ENDOSCOPY 07/21/2012 COLONOSCOPY 08/02/2014 Insurance Providers Payer Name Payer Address Payer Phone Subscriber Number Group Number Insured Name Patient Relationship to Insured Coverage Start Date Coverage End Date [facility] [address] [address] [place], [place] [id number] KRISTIE CHAVARRIA Self - patient is the insured Medical (General) History Medical History History ICD Code heart attack 02/2012 hypertension Denies DM,CVA,Lung disease,renal disease atrial fibrillation Surgical History Surgery Date(Month/Year) double bypass surgery 03/2012
--- NOTE | 2025-03-16 08:34 | MHC.OFFVISCO ---
Intake Intake Visit Reasons: Anticoagulation Allergies atorvastatin (Lipitor) Adverse Reaction (Intermediate, Verified 03/16/25 08:20) didn't tolerate rosuvastatin (Crestor) Adverse Reaction (Intermediate, Verified 03/16/25 08:20) didn't tolerate venlafaxine (From Effexor) Adverse Reaction (Intermediate, Verified 03/16/25 08:20) did not tolerate Medication List - Last Reconciled 03/16/25 by Mago Schmidt RN amlodipine 2.5 mg PO DAILY bisacodyl (Dulcolax (bisacodyl)) 20 mg (4 x 5 mg) PO ONCE 1 day blood-glucose meter (FreeStyle Lite Meter kit) As directed buspirone 5 mg PO BID buspirone 40 mg orally ; Managed by psych; clonazepam mg PO PRN coenzyme Q10 (CoQ-10) 100 mg PO DAILY evolocumab (Repatha SureClick) 140 mg subcut Q2W fluoxetine 20 mg PO DAILY FreeStyle Lite Strips (blood sugar diagnostic) Test blood sugar once a day NS gabapentin 600 mg (2 x 300 mg) PO BEDTIME 30 days lancets (FreeStyle Lancets) Test blood sugar twice a day levothyroxine 50 mcg PO DAILY lisinopril 10 mg PO DAILY metoprolol tartrate 75 mg (1.5 x 50 mg) PO BID 90 days niacin PO [TUMERIC PO] warfarin 5 mg See Protocol PO DAILY Nursing Note INR: 3.3 in therapeutic range- TRANSITION FROM SUMMER DIET TO FALL- Medications and supplements reviewed No changes in health, medications, or supplements, Denies any signs and symptoms of bleeding or bruising or clotting. Bleeding, bruising, clotting discussed Nutritional guidance given - COOKED GREENS TO LOWER INR Dose: KEEP SAME 7.5MG FRI/ 10MG X 6 DAYS F/U INR: 1 MONTH Patient verbalizes understanding of instructions given Anti-Coag Initial Assessment Social Hx Patient Tobacco Use Status: Former Tobacco user alcohol intake: former Alcohol intake frequency: former alcohol drinker Cardiovascular Hx: HTN, CAD, [place] and Arrhythmias Endocrine Hx: Thyroid Disease Musculoskeletal Hx: Arthritis Blood Disorder Hx: Hyperlipidemia GI Hx: Diverticulosis Neurological Hx: Migraines/Headaches Cancer HX: No Psych. Illness/Depression: No Coding Level of Care Code Est Patient Level 1 Diagnoses Current use of anticoagulant therapy Z79.01 Results AMB INR Fingerstick AMB INR Fingerstick 3.3 Last Edit by Mago Schmidt RN on 03/16/25 08:27 manual entry Assessment & Plan Assessment & Plan (1) Current use of anticoagulant therapy: Code(s): Z79.01 - shelter (current) use of anticoagulants Category: Medical
[2025-03-16 10:31] LABS: Prothrombin Time Whole Bld POC 40.0 sec (11.1-13.5); ~PT, ~INR - Anti Coag Clinic 3.3 (0.9-1.1)
== END 2025-03-16 08:36 | disposition home or self-care (01) ==
LOC: HO.ACS 08:18
PROVIDERS: PCP Nurse Practitioner Family; Visit Provider Internal Medicine Medical Oncology
DX: Z79.01 Long term (current) use of anticoagulants (principal)

== ENCOUNTER → 2025-03-16 08:18 | Outpatient (BNVA) | payer OTHER, SELFPAY | PROVIDERS: PCP Nurse Practitioner Family; Visit Provider Internal Medicine Medical Oncology | DX: I48.0 Paroxysmal atrial fibrillation (principal); Z79.01 Long term (current) use of anticoagulants; Z51.81 Encounter for therapeutic drug level monitoring | CPT/HCPCS: 85610; 99211 ==

== ENCOUNTER 2025-04-06 08:26 | Outpatient (AMB) | payer OTHER, SELFPAY ==
--- OUTSIDE RECORDS SUMMARY | 2025-04-06 08:28 | XMS_ITS | Patient Health Record ---
Author Organization [facility] Address [address] [place] [address] Care Team Providers Care Railroad Shop Inspector Name Role Phone Tyson Yee M.D. Primary Care Provider Sunita ana Martienz JrXander Unavailable [phone] Reason For Referral No Information Medications Medication SIG (Take, Route, Frequency, Duration) Notes Start Date End Date Status Colyte with Flavor Packs 240 GM Solution Reconstituted As directed Orally Over the specified time.; Duration: 1 day(s) 08/02/2014 Active Atorvastatin Calcium 80mg Active Levothyroxine Sodium 50mcg Active Aspir-81 81mg Active Citalopram Hydrobromide 20 MG Tablet 1 tablet Orally Once a day Active Lisinopril 20 MG Tablet 1 tablet Orally Once a day Active Metoprolol Succinate ER 100 MG Tablet Extended Release 24 Hour 1 tablet Orally Once a day Active Social History Social History Additional Details Category Social Info Options Details Miscellaneous: 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 Problems Problem Type SNOMED Code ICD Code Onset Dates Problem Status W/U Status Risk Notes Problem Esophageal reflux (126754770) Esophageal reflux (530.81) Active confirmed Problem Diverticulitis (60949215) Diverticulitis (562.11) Active confirmed Plan Of Treatment Future Test Test Name Order Date UPPER GI ENDOSCOPY 07/21/2012 COLONOSCOPY 08/02/2014 Insurance Providers Payer Name Payer Address Payer Phone Subscriber Number Group Number Insured Name Patient Relationship to Insured Coverage Start Date Coverage End Date [facility] [employer] [facility] [address] [address] [place], [place] [id number] KRISTIE CHAVARRIA Self - patient is the insured Medical (General) History Medical History History ICD Code heart attack 02/2012 hypertension Denies DM,CVA,Lung disease,renal disease atrial fibrillation Surgical History Surgery Date(Month/Year) double bypass surgery 03/2012
[2025-04-06 08:34] LABS: Prothrombin Time Whole Bld POC 32.4 sec (11.1-13.5); ~PT, ~INR - Anti Coag Clinic 2.7 (0.9-1.1)
--- NOTE | 2025-04-06 08:40 | MHC.OFFVISCO ---
Intake Intake Visit Reasons: Anticoagulation Allergies atorvastatin (Lipitor) Adverse Reaction (Intermediate, Verified 04/06/25 08:29) didn't tolerate rosuvastatin (Crestor) Adverse Reaction (Intermediate, Verified 04/06/25 08:29) didn't tolerate venlafaxine (From Effexor) Adverse Reaction (Intermediate, Verified 04/06/25 08:29) did not tolerate Medication List - Last Reconciled 04/06/25 by Jayleen Dixon RN amlodipine 2.5 mg PO DAILY bisacodyl (Dulcolax (bisacodyl)) 20 mg (4 x 5 mg) PO ONCE 1 day blood-glucose meter (FreeStyle Lite Meter kit) As directed buspirone 5 mg PO BID buspirone 40 mg orally ; Managed by psych; clonazepam mg PO PRN coenzyme Q10 (CoQ-10) 100 mg PO DAILY evolocumab (Repatha SureClick) 140 mg subcut Q2W fluoxetine 20 mg PO DAILY FreeStyle Lite Strips (blood sugar diagnostic) Test blood sugar once a day NS gabapentin 600 mg (2 x 300 mg) PO BEDTIME 30 days lancets (FreeStyle Lancets) Test blood sugar twice a day levothyroxine 50 mcg PO DAILY lisinopril 10 mg PO DAILY metoprolol tartrate 75 mg (1.5 x 50 mg) PO BID 90 days niacin PO [TUMERIC PO] warfarin 5 mg See Protocol PO DAILY Nursing Note NO CP,SOB,DIET/MED CHANGES,FALLS OR SX OF BLEEDING. CONTINUE PRESENT DOSE AND FOLLOW-UP IN 4 WEEKS GOOD UNDERSTANDING OF DOSING INSTR. Anti-Coag Initial Assessment Social Hx Patient Tobacco Use Status: Former Tobacco user alcohol intake: former Alcohol intake frequency: former alcohol drinker Cardiovascular Hx: HTN, CAD, [place] and Arrhythmias Endocrine Hx: Thyroid Disease Musculoskeletal Hx: Arthritis Blood Disorder Hx: Hyperlipidemia GI Hx: Diverticulosis Neurological Hx: Migraines/Headaches Cancer HX: No Psych. Illness/Depression: No Coding Level of Care Code Est Patient Level 1 Diagnoses Current use of anticoagulant therapy Z79.01 Assessment & Plan Assessment & Plan (1) Current use of anticoagulant therapy: Code(s): Z79.01 - [facility] (current) use of anticoagulants Category: Medical
== END 2025-04-06 08:41 | disposition home or self-care (01) ==
LOC: HO.ACS 08:26
PROVIDERS: PCP Nurse Practitioner Family; Visit Provider Internal Medicine Medical Oncology
DX: Z79.01 Long term (current) use of anticoagulants (principal)

== ENCOUNTER → 2025-04-06 08:26 | Outpatient (BNVA) | payer OTHER, SELFPAY | PROVIDERS: PCP Nurse Practitioner Family; Visit Provider Internal Medicine Medical Oncology | DX: Z79.01 Long term (current) use of anticoagulants (principal) | CPT/HCPCS: 85610; 99211 ==

== ENCOUNTER 2025-05-04 08:30 | Outpatient (AMB) | payer OTHER, SELFPAY ==
--- OUTSIDE RECORDS SUMMARY | 2025-05-04 08:38 | XMS_ITS | Patient Health Record ---
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 Primary Care Provider Sunita ana Martinez JrXander Unavailable [phone] Reason For Referral No Information Medications [...] W/U Status Risk Notes Problem Esophageal reflux (158019584) Esophageal reflux (530.81) Active confirmed Problem Diverticulitis (72726812) Diverticulitis (562.11) Active confirmed Plan Of Treatment Future Test Test Name Order Date UPPER GI ENDOSCOPY 07/21/2012 COLONOSCOPY 08/02/2014 Insurance Providers Payer Name Payer Address Payer Phone Subscriber Number Group Number Insured Name Patient Relationship to Insured Coverage Start Date Coverage End Date [facility] [address] [address] [place], [place] [id number] KRISTIE CHAVARRIA Self - patient is the insured Medical (General) History Medical History History ICD Code heart attack 02/2012 hypertension Denies DM,CVA,Lung disease,renal disease atrial fibrillation Surgical History Surgery Date(Month/Year) double bypass surgery 03/2012
[2025-05-04 08:46] LABS: Prothrombin Time Whole Bld POC 39.1 sec (11.1-13.5); ~PT, ~INR - Anti Coag Clinic 3.3 (0.9-1.1)
--- NOTE | 2025-05-04 08:59 | MHC.OFFVISCO ---
Intake Intake Visit Reasons: Anticoagulation Allergies atorvastatin (Lipitor) Adverse Reaction (Intermediate, Verified 05/04/25 08:45) didn't tolerate rosuvastatin (Crestor) Adverse Reaction (Intermediate, Verified 05/04/25 08:45) didn't tolerate venlafaxine (From Effexor) Adverse Reaction (Intermediate, Verified 05/04/25 08:45) did not tolerate Medication List - Last Reconciled 05/04/25 by Melida Schneider RN amlodipine 2.5 mg PO DAILY bisacodyl (Dulcolax (bisacodyl)) 20 mg (4 x 5 mg) PO ONCE 1 day blood-glucose meter (FreeStyle Lite Meter kit) As directed buspirone 5 mg PO BID buspirone 40 mg orally ; Managed by psych; clonazepam mg PO PRN coenzyme Q10 (CoQ-10) 100 mg PO DAILY evolocumab (Repatha SureClick) 140 mg subcut Q2W fluoxetine 20 mg PO DAILY FreeStyle Lite Strips (blood sugar diagnostic) Test blood sugar once a day NS gabapentin 600 mg (2 x 300 mg) PO BEDTIME 30 days lancets (FreeStyle Lancets) Test blood sugar twice a day levothyroxine 50 mcg PO DAILY lisinopril 10 mg PO DAILY metoprolol tartrate 75 mg (1.5 x 50 mg) PO BID 90 days niacin PO [TUMERIC PO] warfarin 5 mg See Protocol PO DAILY Nursing Note INR: 3.3 in therapeutic range- less greens had a cold took Tylenol Medications and supplements reviewed No changes in health, medications, or supplements, Denies any signs and symptoms of bleeding or bruising or clotting. Denies s/s Bleeding, bruising, clotting discussed Nutritional guidance given - COOKED [place] TO LOWER INR Dose: KEEP SAME 7.5MG FRI/ 10MG X 6 DAYS F/U INR: 1 MONTH Patient verbalizes understanding of instructions given Anti-Coag Initial Assessment Social Hx Patient Tobacco Use Status: Former Tobacco user alcohol intake: former Alcohol intake frequency: former alcohol drinker Cardiovascular Hx: HTN, CAD, [place] and Arrhythmias Endocrine Hx: Thyroid Disease Musculoskeletal Hx: Arthritis Blood Disorder Hx: Hyperlipidemia GI Hx: Diverticulosis Neurological Hx: Migraines/Headaches Cancer HX: No Psych. Illness/Depression: No Coding Level of Care Code Est Patient Level 1 Diagnoses Current use of anticoagulant therapy Z79.01 Assessment & Plan Assessment & Plan (1) Current use of anticoagulant therapy: Code(s): Z79.01 - [facility] (current) use of anticoagulants Category: Medical
== END 2025-05-04 09:14 | disposition home or self-care (01) ==
LOC: HO.ACS 08:30
PROVIDERS: PCP Nurse Practitioner Family; Visit Provider Internal Medicine Medical Oncology
DX: Z79.01 Long term (current) use of anticoagulants (principal)

== ENCOUNTER → 2025-05-04 08:30 | Outpatient (BNVA) | payer OTHER, SELFPAY | PROVIDERS: PCP Nurse Practitioner Family; Visit Provider Internal Medicine Medical Oncology | DX: I48.0 Paroxysmal atrial fibrillation (principal) | CPT/HCPCS: 85610; 99211 ==